=== PATIENT | male | born 1960 | race Caucasian/White ===

== ENCOUNTER → 2017-02-17 | Outpatient (CLI) | payer BC ==
[~2017-02-17] MED LIST: ASPI81TA28 PO; ATOR-26 PO; CLB200 PO; CLOP1TAB15 PO; METO25TA56 PO; MULT-506 PO; NAPR-1169 PO
[2017-02-17 12:16] LABS: BASO % 0.8 %; BASO ABS # 0.03 K/uL (0-0.2); COMPLETE YES; EOS % 3.1 %; HEMATOCRIT 43.3 % (42-52); IG% 0.3 %; LYMPH % 47.5 %; LYMPH ABS # 1.81 K/uL (1.2-3.4); MEAN CELL VOLUME 93.3 fL (80-100); MEAN CORPUSCULAR HGB CONC 33.3 g/dl (32-36); MEAN PLATELET VOLUME 10.5 fL (7.4-10.4); MONO % 11.8 %; NEUT % 36.5 %; PLATELET COUNT 239 K/uL (130-400); RED BLOOD COUNT 4.64 M/uL (4.7-6.1); WHITE BLOOD COUNT 3.81 K/uL (4.8-10.8)
[2017-02-17 12:22] LABS: ALB/GLOB RATIO 1.1 (0.9-2); ALT/SGPT 47 U/L (12-78); AST/SGOT 28 U/L (15-37); BLOOD UREA NITROGEN 34 mg/dl (7-18); BUN/CREATININE RATIO 30.9 (10-20); CALCIUM 9.9 mg/dl (8.5-10.1); CARBON DIOXIDE 27 mmol/L (21-32); CHLORIDE 106 mmol/L (98-107); GLUCOSE 87 mg/dl (70-99); SODIUM 139 mmol/L (136-145); TRIGLYCERIDES 89 mg/dl (0-150); VERY LOW DENSITY LIPOPROT CALC 18 mg/dl
[2017-02-17 12:28] LABS: ESTIMATED AVERAGE GLUCOSE 117 mg/dl; HA1C FLAG Normal (Normal)
[2017-02-17 12:30] LABS: ALKALINE PHOSPHATASE 66 U/L (45-117); CHOLESTEROL 202 mg/dl (0-200); HDL CHOLESTEROL 68 mg/dl; LDL CHOLESTEROL CALCULATED 116 mg/dl
== END | disposition home or self-care (01) ==
LOC: C.LABBFT 08:03
PROVIDERS: ATTEND Internal Medicine
DX: E78.5 Hyperlipidemia, unspecified (principal); R73.01 Impaired fasting glucose; Z12.5 Encounter for screening for malignant neoplasm of prostate

== ENCOUNTER 2022-08-10 15:27 | Inpatient (IN) ==
[2022-08-10 16:06] LABS: Basophils # (auto) 0.05 K/uL (0-0.2); Basophils % (auto) 0.6 %; Eosinophils # (auto) 0.03 K/uL (0-0.50); Eosinophils % (auto) 0.4 %; Hematocrit (blood only) 32.8 % (40.1-51.0); Hemoglobin 11.6 g/dl (14.0-18.0); Immature Granulocytes # (auto) 0.04 K/uL (0.00-0.02); Immature Granulocytes % (auto) 0.5 %; Lymphocytes # (auto) 1.18 K/uL (1.2-3.4); Lymphocytes % (auto) 14.1 %; Mean Corpuscular Hemoglobin 35.8 pg (25.0-34.0); Mean Corpuscular Hgb Conc 35.4 g/dL (32.0-36.0); Mean Corpuscular Volume 101.2 fL (80.0-100.0); Mean Platelet Volume 9.4 fL (9.4-12.4); Monocytes # (auto) 0.89 K/uL (0.24-0.82); Monocytes % (auto) 10.6 %; Neutrophils # (auto) 6.18 K/uL (1.4-6.5); Neutrophils % (auto) 73.8 %; Platelet Count 203 K/uL (130-400); RDW Coefficient of Variation 15.1 % (11.5-14.5); RDW Standard Deviation 55.4 fL (36.4-46.3); Red Blood Count 3.24 M/uL (4.63-6.08); White Blood Count 8.37 K/ul (4.8-10.8)
[2022-08-10 16:21] LABS: INR 1.4 (0.9-1.1); Partial Thromboplastin Ratio 1.2; Partial Thromboplastin Time 31.9 Seconds (21.0-31.0); Prothrombin Time 14.2 Seconds (9.0-12.0)
[2022-08-10 16:26] LABS: Albumin Globulin Ratio 0.6 (0.9-2); Albumin Level 2.8 gm/dl (3.4-5.0); BUN Creatinine Ratio 21.9 (10-20); Bilirubin,Total 4.4 mg/dl (0.2-1.0); Calcium 8.3 mg/dl (8.5-10.1); Creatinine Clr Calc Pharmacy 71.1 ml/min; Est GFR (African American) 97.1 ml/min; Est GFR (Non-African American) 83.8 ml/min; Globulin 4.7 gm/dl (2.5-4.0); Magnesium 1.3 mg/dl (1.7-2.4); Potassium 4.2 mmol/L (3.5-5.1); Total Protein 7.5 gm/dl (6.0-8.3)
--- NOTE | 2022-08-10 16:51 | XRay Report ---
XR chest 1V portable CLINICAL HISTORY: Shortness of breath. COMPARISON STUDY: Chest radiograph February 24, 2008. Chest CT February 25, 2008. FINDINGS: Low lung volumes are noted. There is no consolidation. No evidence for pulmonary edema. Car diac size is normal. Mediastinal contours are normal. IMPRESSION: No acute cardiopulmonary findings. Low lung volumes. ACT 112: Negative or not required by law. Electronically signed by: Walt Win M.D. 08/10/2022 4:50 PM
[2022-08-10] MEDS ORDERED: FAMOTIDINE 20MG IV PUSH 20 MG/5 ML SYR IV STA (17:24)
[2022-08-10] MEDS ORDERED: PANTOPRAZOLE BOLUS/DRIP 1 EACH IV STA (17:24)
[2022-08-10] MEDS ORDERED: PANTOprazole 80 MG in DEXTROSE 5% 100 ML IV ONE (17:24)
--- NOTE | 2022-08-10 17:55 | History & Physical Report ---
Date of Service August 10, 2022 Assessment & Plan (1) Ascites: Plan: Alcohol abuse, suspected failure change/cirrhosis Last drink 2:30 PM on 08/10/2022. For alcohol free days last week due to feeling very full, previously drinking up to 15 shots per day without any alcohol free days for several years AST 50, ALT 17, total bilirubin 4.4 on admission. DDx includes biliary disease, imaging pending and patient has had no post prandial pain or focal right upper quadrant pain. Ojeda's negative -MELD: 22, 19% 3-month mortality -Child Hatch 10, borderline class [facility]: 14.5. Glucocorticoids not indicated at this time Sodium restriction 2 g daily. NPO while eval for GIB Spironolactone 50/Lasix 20 mg daily started Thiamine high-dose protocol ordered Folic acid daily MIMI S with Librium active protocol given high intake for many years and elevated risk Hepatitis panel pending Melena No known esophageal varices. Imaging pending, if varices --> octreotide. Patient has never had a colonoscopy or endoscopy Hemoglobin 11.6, no indication for transfusion at this time Hemoglobin trended q8h DDx includes upper GI bleed versus varices GI consulted. With ascites evaluation as above. - Rocephin 1g QD SBP prophylaxis Iron studies pending, b12/folate pending PPI drip continued for potential GERD/peptic ulcer disease, patient does not have focal epigastric pain but does endorse diffuse abdominal discomf ort/pressure with his ascites Shortness of breath CTA PE pending CXR without edema/consolidation Patient with substantial ascites,? Fluid overload and pressure US guided paracentesis w/ analysis ordered for 08/11 Hypomagnesemia 1.3 on admission, oral and IV repletion ordered Hypertension Lasix/spironolactone as above, follow Med reconciliation, patient has taken no medications in over a year other than some of his 's lorazepam intermittently and rarely OTC medications. DVT prophylaxis: Pharmacal prophylaxis deferred in the setting of melena/concern for bleed Diet: N.p.o., when able to tolerate p.o. low-salt Disposition: Telemetry CODE STATUS: Full code (2) Alcohol abuse: (3) Hypertension: (4) Hyperlipidemia: (5) Elevated liver enzymes: (6) Impaired fasting glucose: (7) Melena: History of Present Illness Primary Care Provider: Roge Childers MD Suresh Pa is a 62-year-old male with a past medical history of alcohol abuse, BPH, asthmatic bronchitis, depression with anxiety, hypertension, and hyperlipidemia who had been lost to past PCP follow-up but comes in with worsening shortness of breath for several weeks. In the ER CXR shows no acute lung consolidation or pulmonary edema. Abdominal ultrasound shows hepatic steatosis, no evidence of acute cholecystitis, no biliary ductal dilation. Reports wanting him to com ein due to stomach pain. gutierrez snot taken any prescription medications in over a year. reports she was away and [place] for 9 days and then when she returned he had begun to lose weight and have progressive shortness of breath and leg/belly swelling since the end of March. Abdomen has been progressively swelling since then. Abdomen is diffusely tender without focal areas that are worst. Epigastrum is not particularly worse than anywhere else. Had regular clear/thick white phlegm production and some difficulty swallowing. Endorses difficulty swallowing solids since ~March and some food regurgitation. No regurgitating liquids although sometimes 'a littl ehard to get down.' No coughing up blood. No vomiting recently. No nausea with his vomiting. Genearlly related to high alcohol consumption No chest pain, no chest pressure independently but feels belly pressing up into the chest. 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 Notes his bowel movements are very small (only small round balls, but when he wipes the tissue paper is black). No large sticky bowel movements. No hx of colonoscopy or endoscopy Does not eat much. Eating even small amounts of food are both difficult to swallow and immediately feels full with just a few small bites. endorses pain when he changes position in bed at night, denies pain with mealss. Denies scleral icterus/jaundice No FHx of colon or rectal cancer. No fhx cancer. No family hx of early WI. No fhx bleeding problems. Med Hx: No heart problems, no lung problems/. Past HTN, takes no medications. Allergies: None Social: No tobacco product use EtoH History: - Drank alcohol since 11 years old. In the last month drinks a shot or two a day due to feelin full. Prior was drinking ~15 shots per day. Never went without any alchol. Went 4 days without etoh last week due to feeling full and overall poor. No hx of withdrawal sx or seizures. Last drink today just before ER visit (2:30pm on 08/10, x1 shot). uses marijuana periodically, helps with abdominal pain. No recreational drug use. Surrogate DM would be . Full Code. No leukocytosis. Hemoglobin 11.6, last 2 years ago 14.7. MCV 101.2 in the setting of alcohol use. Iron studies pending INR 1.4, no prior anticoagulant use Sodium 130, potassium 4.2 Creatinine at baseline is normal. On admission creatinine 0.96. Total bilirubin 4.4, AST 50, ALT 17. Troponin BMP COVID pending Allergies Allergy/AdvReac Type Severity Reaction Status Date / Time amlodipine [From [facility]] AdvReac Unknown PT UNAWARE Verified 08/10/22 18:22 OF THIS ALLERGY OR REACTION??? Home Medications Medication Instructions Recorded Confirmed Type acetaminophen 500 mg tablet 1,000 mg PO DIRECTED PRN 08/10/22 08/10/22 History (Tylenol Extra Strength) FEVER/PAIN dextromethorphan-guaifenesin 10 10 ml PO DIRECTED PRN Cough 08/10/22 08/10/22 History mg-100 mg/5 mL oral liquid guaifenesin 600 mg tablet, 600 mg PO Q12H PRN Congestion 08/10/22 08/10/22 History extended release 12 hr (Mucinex) lorazepam 0.5 mg tablet 0.5 mg PO DIRECTED PRN PER PT'S 08/10/22 08/10/22 History , NOT A PT MED Past Med/Surg History Medical History Asthmatic bronchitis Blurred vision BPH (benign prostatic hyperplasia) Dermatitis Elevated liver enzymes Erectile dysfunction Hyperlipidemia Hypertension Impaired fasting glucose Surgical History History of tonsillectomy and adenoidectomy Family History Father Heart disease Cardiomegaly Pacemaker Cardiac rhythm disorder or disturbance or change Mother Heart disease Pacemaker Social History Smoking Status: Never smoker Hx Alcohol Use: Yes Hx Substance Use: No marital status: / current occupational status: employed 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 NAD. Cooperative. HEENT: Atraumatic, normocephalic. Trace scleral icterus. Vision/hearing grossly intact Pulm: Diminished without overt wheezes/rales/rhonchi.. Symmetrical chest rise. No increase in work of breathing. No respiratory distress. Cardiac: Regular, tachycardic, -mrg. Radial pulses intact and symmetrical. Abdominal: Tense abdominal distention without focal tenderness/rebound, +fluid wave. No right upper quadrant/epigastric focal tenderness/Ojeda's negative. Extremities: Warm, dry. Sensation soft touch intact in hands and feet bilaterally. Results & Data Results & Data ([facility]) Vital Signs (Past 12 Hours) Vital Signs Temp Pulse Pulse Resp BP BP Pulse Ox 08/10/22 16:25 98 08/10/22 16:25 08/10/22 16:25 20 98 08/10/22 16:25 104 H 20 134/101 H 99 08/10/22 16:25 08/10/22 15:37 08/10/22 15:33 36.8 C 106 H 20 131/94 98 O2 Del Method 08/10/22 16:25 Room Air 08/10/22 16:25 Room Air 08/10/22 16:25 Room Air 08/10/22 16:25 Room Air 08/10/22 16:25 Room Air 08/10/22 15:37 Room Air 08/10/22 15:33 Room Air PG Care Time/CCT Total # of Minutes Spent Total Time Spent with Patient: Total time spent is greater than 50% in coordination of care (as documented) at patient's floor/unit and/or counseling patient: Coding Level of Care Code 04677 Initial Inpt Care Lvl 3 Diagnoses Ascites R18.8 Alcohol abuse F10.10 Hypertension I10 Hyperlipidemia E78.5 Elevated liver enzymes R74.8 Impaired fasting glucose R73.01 Melena K92.1
[2022-08-10] MEDS ORDERED: OPTIRAY 320 500ml IV ONE (18:31)
--- NOTE | 2022-08-10 18:35 | Emergency Department Note ---
Impression & Plan SOB (shortness of breath), Abdominal ascites, ETOH abuse, Elevated LFTs, Anemia, Accelerated junctional rhythm, Noncompliance with medication regimen ED Provider Note INFORMANT: Patient ED PROVIDER(S): Suresh Mckeon MD CHIEF COMPLAINT: Shortness of breath PLAN: Disposition: Admitted Condition: Guarded Outpatient prescription management: none Referral: None MEDICAL DECISION MAKING: Patient present because of shortness of breath. His history is very concerning for alcohol abuse. He has an ascitic fluid wave on examination. He has not been taking his medications. His ECG showed an accelerated junctional rhythm. CBC showed a mild anemia and high MCV consistent with his alcohol use. Patient has an elevated INR as well as T bili and AST. Chest x-ray was negative. CT scan of the chest did not reveal any acute evidence of thromboembolic disease. CT scan of the abdomen pelvis did reveal significant findings consistent with liver disease including ascites. I discussed further management in the hospital. Patient was treated with Pepcid and Protonix. [facility] Patient was evaluated in ER admitted for further management Triage Nursing notes reviewed and agree them. Vital Signs: reviewed and remarkable for hypertension Differential diagnosis: End-stage liver disease, reactive airway disease, pneumonia, pneumothorax, COPD, CHF, infections, cardiac ischemia, pulmonary embolism, musculoskeletal, gastrointestinal, as well as other pathologies. Diagnostics interpreted by me: ECG: Twelve-lead ECG reveals an accelerated junctional rhythm with low voltage QRS and inferior Q waves at [address] elevation. Poor baseline data. Cardiac Monitoring: Cardiac monitoring ordered by me: The patient was placed on continuous cardiac monitoring and observed. It revealed accelerated junctional rhythm at 99 bpm. Imaging studies: Chest x-ray and CT scans as noted above. I refer you to the EMR for further details. HPI: The patient is a 62year old male who presents to the Emergency Room with complaints of shortness of breath. This started few weeks ago and is worsening.Patient notes dyspnea with walking from his bed to bathroom. The patient also notes the following associated symptoms, abdominal distention, oc casional lower abdominal cramping, lower extremity swelling, fatigue and generalized weakness, black stool. The patient has found no relieving factors. Current pain is rated as 0/10. Patient states he drinks a significant mount of alcohol on a daily basis. Patient states he has run out of his blood pressure medication and avoided going to the doctor to refill it due to his alcohol issues .pt denies LOC, headache, fevers, chills, diaphoresis, visual changes, neck pain, chest pain, nausea, vomiting, back pain, hematochezia, urinary symptoms, numbness, lymphadenopathy, rash, or other complaints. ROS: See above HPI for pertinent positives & negatives. A total of 10 systems reviewed and were otherwise negative. PAST MEDICAL HISTORY:See Below , hypertension, EtOH abuse PAST SURGICAL HISTORY:See Below, FAMILY HISTORY:See Below SOCIAL HISTORY:See Below, heavy alcohol use HOME MEDICATIONS:See Below ALLERGIES:See Below VITALS:See Below PHYSICAL EXAMINATION: GENERAL: Awake, alert, mildly dyspneic-appearing, in no distress HENT: Normocephalic, atraumatic. Oropharynx unremarkable. EYES: Pale conjunctiva. Sclera mildly-icteric. NECK: Inspection normal. Non-tender. Supple. No nuchal rigidity. FROM. No masses. RESPIRATORY: Clear to auscultation. No wheezes. No rales. Normal respiratory effort. CARDIAC: Normal rate. Normal rhythm. No murmurs. No rubs. Extremities warm and well perfused. Pulses equal. No JVD. GI: Soft, positive fluid wave, moderately-distended. No tenderness to palpation. No rebound or guarding. No masses. RECTAL: Deferred. MUSCULOSKELETAL: Atraumatic. Chest examination reveals no tenderness. The back is symmetrical on inspection without obvious abnormality. There is no CVA tenderness to palpation. No joint edema. LOWER EXTREMITIES: Calves are equal size bilaterally and non-tender. 1+ edema. No discoloration. NEURO: Normal sensorium. No sensory or motor deficits noted. SKIN: No rash but mild jaundice noted. Suresh Mckeon MD Past Med/Surg History Medical History Asthmatic bronchitis Blurred vision BPH (benign prostatic hyperplasia) Dermatitis Elevated liver enzymes Erectile dysfunction Hyperlipidemia Hypertension Impaired fasting glucose Surgical History History of tonsillectomy and adenoidectomy Family History Father Heart disease Cardiomegaly Pacemaker Cardiac rhythm disorder or disturbance or change Mother Heart disease Pacemaker Social History Smoking Status: Former smoker Hx Alcohol Use: Yes Alcohol type: hard liquor Hx Substance Use: Yes Substance Use Type Other:: used last evening Preferred Language: Brazilian Communication Ability: Effective Field Sales Specialist Required: No Beliefs That Will Affect Care: None marital status: / Current Living Situation: Spouse current occupational status: employed 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 Home Meds Home Medications Medication Instructions Recorded Confirmed acetaminophen 500 mg tablet 1,000 mg PO DIRECTED PRN 08/10/22 08/10/22 (Tylenol Extra Strength) FEVER/PAIN dextromethorphan-guaifenesin 10 10 ml PO DIRECTED PRN Cough 08/10/22 08/10/22 mg-100 mg/5 mL oral liquid guaifenesin 600 mg tablet, 600 mg PO Q12H PRN Congestion 08/10/22 08/10/22 extended release 12 hr (Mucinex) lorazepam 0.5 mg tablet 0.5 mg PO DIRECTED PRN PER PT'S 08/10/22 08/10/22 , NOT A PT MED Results & Data (ED) Vital Signs Vital Signs - 24 hr 08/10/22 15:33 08/10/22 15:37 08/10/22 16:25 Temperature 36.8 C Temperature Source Temporal Artery Scan Pulse Rate 106 H Pulse Rate [Apical] Pulse Rhythm Regular Pulse Rhythm [Apical] Pulse Strength Normal Pulse Strength [Apical] Respiratory Rate 20 Respiratory Effort / Characteristics Non-Labored Spontaneous Non-Labored Respiratory Depth Normal Normal Respiratory Pattern Regular Regular Blood Pressure 131/94 Blood Pressure [Right Arm] Blood Pressure Mean 106 Blood Pressure Mean [Right Arm] Blood Pressure Position Sitting Blood Pressure Position [Right Arm] Pulse Oximetry 98 Oxygen Delivery Method Room Air Room Air Room Air Sepsis Recent Fever Within 48 Hours No Sepsis New/Unexplained Change in Mental Status N/A Sepsis Action Taken by Nursing No Action Required 08/10/22 16:25 08/10/22 16:25 08/10/22 16:25 Temperature Temperature Source Pulse Rate Pulse Rate [Apical] 104 H Pulse Rhythm Pulse Rhythm [Apical] Regular Pulse Strength Pulse Strength [Apical] Normal Respiratory Rate 20 20 Respiratory Effort / Characteristics Non-Labored Non-Labored Respiratory Depth Normal Respiratory Pattern Regular Blood Pressure Blood Pressure [Right Arm] 134/101 H Blood Pressure Mean Blood Pressure Mean [Right Arm] 112 Blood Pressure Position Blood Pressure Position [Right Arm] Lying Pulse Oximetry 99 98 Oxygen Delivery Method Room Air Room Air Room Air Sepsis Recent Fever Within 48 Hours Sepsis New/Unexplained Change in Mental Status Sepsis Action Taken by Nursing 08/10/22 16:25 08/10/22 18:00 Temperature Temperature Source Pulse Rate Pulse Rate [Apical] 101 H Pulse Rhythm Pulse Rhythm [Apical] Regular Pulse Strength Pulse Strength [Apical] Normal Respiratory Rate 20 Respiratory Effort / Characteristics Non-Labored Respiratory Depth Normal Respiratory Pattern Regular Blood Pressure Blood Pressure [Right Arm] 134/103 H Blood Pressure Mean Blood Pressure Mean [Right Arm] 113 Blood Pressure Position Blood Pressure Position [Right Arm] Lying Pulse Oximetry 98 96 Oxygen Delivery Method Room Air Room Air Sepsis Recent Fever Within 48 Hours Sepsis New/Unexplained Change in Mental Status Sepsis Action Taken by Nursing Laboratory Data Result diagrams: 08/10/22 21:09 08/10/22 15:57 Lab Results 08/10/22 08/10/22 08/10/22 Range/Units 15:57 15:57 15:57 WBC 8.37 (4.8-10.8) K/ul RBC 3.24 L (4.63-6.08) M/uL Hgb 11.6 L (14.0-18.0) g/dl Hct 32.8 L (40.1-51.0) % MCV 101.2 H (80.0-100.0) fL MCH 35.8 H (25.0-34.0) pg MCHC 35.4 (32.0-36.0) g/dL RDW Std Deviation 55.4 H (36.4-46.3) fL RDW Coeff of Elizabeth 15.1 H (11.5-14.5) % Plt Count 203 (130-400) K/uL MPV 9.4 (9.4-12.4) fL Immature Gran % (Auto) 0.5 % Neut % (Auto) 73.8 % Lymph % (Auto) 14.1 % [place] % (Auto) 10.6 % Eos % (Auto) 0.4 % Baso % (Auto) 0.6 % Neut # (Auto) 6.18 (1.4-6.5) K/uL Lymph # (Auto) 1.18 L (1.2-3.4) K/uL [place] # (Auto) 0.89 H (0.24-0.82) K/uL Eos # (Auto) 0.03 (0-0.50) K/uL Baso # (Auto) 0.05 (0-0.2) K/uL Immature Gran # (Auto) 0.04 H (0.00-0.02) K/uL PT 14.2 H (9.0-12.0) Seconds INR 1.4 H (0.9-1.1) APTT 31.9 H (21.0-31.0) Seconds PTT Ratio 1.2 Sodium 130 L (136-145) mmol/L Potassium 4.2 (3.5-5.1) mmol/L Chloride 98 (98-107) mmol/L Carbon Dioxide 18 L (21-32) mmol/L Anion Gap 14 H (3-11) BUN 21 (6-23) mg/dl Creatinine 0.96 (0.6-1.4) mg/dl Est Cr Clr Drug Dosing 71.1 ml/min Est GFR ( Amer) 97.1 ml/min Est GFR (Non-Af Amer) 83.8 ml/min BUN/Creatinine Ratio 21.9 H (10-20) Glucose 96 (70-99(Fasting)) mg/dl Calcium 8.3 L (8.5-10.1) mg/dl Magnesium 1.3 L (1.7-2.4) mg/dl Iron (35-175) mcg/dl TIBC (250-450) mcg/dl Unsaturated IBC (155-355) mcg/dl Transferrin % Sat (20-50) % Ferritin (8-388) ng/ml Total Bilirubin 4.4 H (0.2-1.0) mg/dl AST 50 H (13-39) U/L ALT 17 (7-52) U/L Alkaline Phosphatase 89 (34-104) U/L Troponin I High Sens (0-20) pg/ml B-Natriuretic Peptide (0-100) pg/ml Total Protein 7.5 (6.0-8.3) gm/dl Albumin 2.8 L (3.4-5.0) gm/dl Globulin 4.7 H (2.5-4.0) gm/dl Albumin/Globulin Ratio 0.6 L (0.9-2) Vitamin B12 (180-914) pg/ml Folate (>5.38) ng/ml SARS-CoV-2, RNA, NAAT (NEGATIVE) Blood Type Antibody Screen 08/10/22 08/10/22 08/10/22 Range/Units 15:57 15:57 15:57 WBC (4.8-10.8) K/ul RBC (4.63-6.08) M/uL Hgb (14.0-18.0) g/dl Hct (40.1-51.0) % MCV (80.0-100.0) fL MCH (25.0-34.0) pg MCHC (32.0-36.0) g/dL RDW Std Deviation (36.4-46.3) fL RDW Coeff of Elizabeth (11.5-14.5) % Plt Count (130-400) K/uL MPV (9.4-12.4) fL Immature Gran % (Auto) % Neut % (Auto) % Lymph % (Auto) % [place] % (Auto) % Eos % (Auto) % Baso % (Auto) % Neut # (Auto) (1.4-6.5) K/uL Lymph # (Auto) (1.2-3.4) K/uL [place] # (Auto) (0.24-0.82) K/uL Eos # (Auto) (0-0.50) K/uL Baso # (Auto) (0-0.2) K/uL Immature Gran # (Auto) (0.00-0.02) K/uL PT (9.0-12.0) Seconds INR (0.9-1.1) APTT (21.0-31.0) Seconds PTT Ratio Sodium (136-145) mmol/L Potassium (3.5-5.1) mmol/L Chloride (98-107) mmol/L Carbon Dioxide (21-32) mmol/L Anion Gap (3-11) BUN (6-23) mg/dl Creatinine (0.6-1.4) mg/dl Est Cr Clr Drug Dosing ml/min Est GFR ( Amer) ml/min Est GFR (Non-Af Amer) ml/min BUN/Creatinine Ratio (10-20) Glucose (70-99(Fasting)) mg/dl Calcium (8.5-10.1) mg/dl Magnesium (1.7-2.4) mg/dl Iron 46 (35-175) mcg/dl TIBC 111 L (250-450) mcg/dl Unsaturated IBC 65 L (155-355) mcg/dl Transferrin % Sat 41 (20-50) % Ferritin 934.9 H (8-388) ng/ml Total Bilirubin (0.2-1.0) mg/dl AST (13-39) U/L ALT (7-52) U/L Alkaline Phosphatase (34-104) U/L Troponin I High Sens 5.6 (0-20) pg/ml B-Natriuretic Peptide (0-100) pg/ml Total Protein (6.0-8.3) gm/dl Albumin (3.4-5.0) gm/dl Globulin (2.5-4.0) gm/dl Albumin/Globulin Ratio (0.9-2) Vitamin B12 712 (180-914) pg/ml Folate 6.77 (>5.38) ng/ml SARS-CoV-2, RNA, NAAT (NEGATIVE) Blood Type Antibody Screen 08/10/22 08/10/22 08/10/22 Range/Units 15:57 17:31 17:31 WBC (4.8-10.8) K/ul RBC (4.63-6.08) M/uL Hgb (14.0-18.0) g/dl Hct (40.1-51.0) % MCV (80.0-100.0) fL MCH (25.0-34.0) pg MCHC (32.0-36.0) g/dL RDW Std Deviation (36.4-46.3) fL RDW Coeff of Elizabeth (11.5-14.5) % Plt Count (130-400) K/uL MPV (9.4-12.4) fL Immature Gran % (Auto) % Neut % (Auto) % Lymph % (Auto) % [place] % (Auto) % Eos % (Auto) % Baso % (Auto) % Neut # (Auto) (1.4-6.5) K/uL Lymph # (Auto) (1.2-3.4) K/uL [place] # (Auto) (0.24-0.82) K/uL Eos # (Auto) (0-0.50) K/uL Baso # (Auto) (0-0.2) K/uL Immature Gran # (Auto) (0.00-0.02) K/uL PT (9.0-12.0) Seconds INR (0.9-1.1) APTT (21.0-31.0) Seconds PTT Ratio Sodium (136-145) mmol/L Potassium (3.5-5.1) mmol/L Chloride (98-107) mmol/L Carbon Dioxide (21-32) mmol/L Anion Gap (3-11) BUN (6-23) mg/dl Creatinine (0.6-1.4) mg/dl Est Cr Clr Drug Dosing ml/min Est GFR ( Amer) ml/min Est GFR (Non-Af Amer) ml/min BUN/Creatinine Ratio (10-20) Glucose (70-99(Fasting)) mg/dl Calcium (8.5-10.1) mg/dl Magnesium (1.7-2.4) mg/dl Iron (35-175) mcg/dl TIBC (250-450) mcg/dl Unsaturated IBC (155-355) mcg/dl Transferrin % Sat (20-50) % Ferritin (8-388) ng/ml Total Bilirubin (0.2-1.0) mg/dl AST (13-39) U/L ALT (7-52) U/L Alkaline Phosphatase (34-104) U/L Troponin I High Sens (0-20) pg/ml B-Natriuretic Peptide 110 H (0-100) pg/ml Total Protein (6.0-8.3) gm/dl Albumin (3.4-5.0) gm/dl Globulin (2.5-4.0) gm/dl Albumin/Globulin Ratio (0.9-2) Vitamin B12 Cancelled (180-914) pg/ml Folate (>5.38) ng/ml SARS-CoV-2, RNA, NAAT (NEGATIVE) Blood Type O Positive Antibody Screen NEGATIVE 08/10/22 Range/Units 17:35 WBC (4.8-10.8) K/ul RBC (4.63-6.08) M/uL Hgb (14.0-18.0) g/dl Hct (40.1-51.0) % MCV (80.0-100.0) fL MCH (25.0-34.0) pg MCHC (32.0-36.0) g/dL RDW Std Deviation (36.4-46.3) fL RDW Coeff of Elizabeth (11.5-14.5) % Plt Count (130-400) K/uL MPV (9.4-12.4) fL Immature Gran % (Auto) % Neut % (Auto) % Lymph % (Auto) % [place] % (Auto) % Eos % (Auto) % Baso % (Auto) % Neut # (Auto) (1.4-6.5) K/uL Lymph # (Auto) (1.2-3.4) K/uL [place] # (Auto) (0.24-0.82) K/uL Eos # (Auto) (0-0.50) K/uL Baso # (Auto) (0-0.2) K/uL Immature Gran # (Auto) (0.00-0.02) K/uL PT (9.0-12.0) Seconds INR (0.9-1.1) APTT (21.0-31.0) Seconds PTT Ratio Sodium (136-145) mmol/L Potassium (3.5-5.1) mmol/L Chloride (98-107) mmol/L Carbon Dioxide (21-32) mmol/L Anion Gap (3-11) BUN (6-23) mg/dl Creatinine (0.6-1.4) mg/dl Est Cr Clr Drug Dosing ml/min Est GFR ( Amer) ml/min Est GFR (Non-Af Amer) ml/min BUN/Creatinine Ratio (10-20) Glucose (70-99(Fasting)) mg/dl Calcium (8.5-10.1) mg/dl Magnesium (1.7-2.4) mg/dl Iron (35-175) mcg/dl TIBC (250-450) mcg/dl Unsaturated IBC (155-355) mcg/dl Transferrin % Sat (20-50) % Ferritin (8-388) ng/ml Total Bilirubin (0.2-1.0) mg/dl AST (13-39) U/L ALT (7-52) U/L Alkaline Phosphatase (34-104) U/L Troponin I High Sens (0-20) pg/ml B-Natriuretic Peptide (0-100) pg/ml Total Protein (6.0-8.3) gm/dl Albumin (3.4-5.0) gm/dl Globulin (2.5-4.0) gm/dl Albumin/Globulin Ratio (0.9-2) Vitamin B12 (180-914) pg/ml Folate (>5.38) ng/ml SARS-CoV-2, RNA, NAAT NEGATIVE (NEGATIVE) Blood Type Antibody Screen Administered Medications Chlordiazepoxide HCl (Chlordiazepoxide Hcl 25 Mg Cap) 25 mg PO Q6H JUSTINO; Taper Stop: 08/12/22 20:52 Last Admin: 08/10/22 21:46 Dose: 25 mg Documented By: PENELOPE Pantoprazole Sodium 40 mg/ (Dextrose) 100 mls @ 20 mls/hr IV Q5H JUSTINO Stop: 09/09/22 17:44 Last Admin: 08/10/22 22:13 Dose: 8 mg/hr, 20 mls/hr Documented By: Infusion: 08/10/22 22:13 Dose: 8 mg/hr, 20 mls/hr Documented By: Admin: 08/10/22 19:04 Dose: 8 mg/hr, 20 mls/hr Documented By: Ceftriaxone Sodium 1,000 mg/ (Dextrose) 60 mls @ 100 mls/hr IV Q24H JUSTINO; Protocol Stop: 08/12/22 21:59 Last Infusion: 08/10/22 22:46 Dose: 0 mls/hr Documented By: Admin: 08/10/22 22:10 Dose: 100 mls/hr Documented By: PENELOPE Magnesium Sulfate/Dextrose (Magnesium Sulfate / D5w) 1 gm in 100 mls @ 50 mls/hr IV Q2H JUSTINO Stop: 08/11/22 00:52 Last Admin: 08/10/22 22:20 Dose: 50 mls/hr Documented By: PENELOPE Magnesium Oxide (Magnesium Oxide 400 Mg Tab) 400 mg PO BID JUSTINO Stop: 09/09/22 20:59 Last Admin: 08/10/22 22:10 Dose: 400 mg Documented By: PENELOPE Discontinued Medications Famotidine (Pepcid 20mg Iv Push) 20 mg in 5 mls @ 2.5 mls/min IV NOW STA Stop: 08/10/22 17:25 Last Admin: 08/10/22 17:45 Dose: 2.5 mls/min Documented By: JB Pantoprazole Sodium (Protonix Bolus/Drip) 0 mls @ 1 mls/hr IV ONE STA Stop: 08/10/22 17:25 Last Admin: 08/10/22 21:43 Dose: Not Given Documented By: PENELOPE Pantoprazole Sodium 80 mg/ (Dextrose) 120 mls @ 400 mls/hr IV NOW ONE Stop: 08/10/22 17:41 Last Infusion: 08/10/22 18:54 Dose: 0 mls/hr Documented By: Admin: 08/10/22 18:36 Dose: 400 mls/hr Documented By: MICHAEL Thiamine HCl 500 mg/ Sodium (Chloride) 55 mls @ 220 mls/hr IV TODAY@2200 JUSTINO Stop: 08/10/22 22:14 Last Infusion: 08/10/22 22:34 Dose: 0 mls/hr Documented By: Admin: 08/10/22 22:19 Dose: 220 mls/hr Documented By: PENELOPE Ioversol (Optiray 320 500ml) 112 ml IV ONCE ONE Stop: 08/10/22 18:32 Last Admin: 08/10/22 18:31 Dose: 112 ml Documented By: CARLA Imaging Data Radiologist's Impression: Chest X-Ray 08/10/22 15:37 XR chest 1V portable CLINICAL HISTORY: Shortness of breath. COMPARISON STUDY: Chest radiograph February 24, 2008. Chest CT February 25, 2008. FINDINGS: Low lung volumes are noted. There is no consolidation. No evidence for pulmonary edema. Cardiac size is normal. Mediastinal contours are normal. IMPRESSION: No acute cardiopulmonary findings. Low lung volumes. ACT 112: Negative or not required by law. Electronically signed by: Walt Win M.D. 08/10/2022 4:50 PM Abdomen/Pelvis CT 08/10/22 17:24 CT OF THE ABDOMEN AND PELVIS WITH CONTRAST CLINICAL HISTORY: Abdominal distension, lower pain, ETOH abuse. COMPARISON STUDY: CT of the abdomen and pelvis April 22, 2012. TECHNIQUE: Following IV administration of 112 mL of Optiray, axial images of the abdomen and pelvis were obtained from the lung bases to the proximal femurs. Im ages were reviewed in the axial, sagittal, and coronal planes. IV contrast was administered without complication. Automated exposure control was utilized for the study. A dose lowering technique was utilized adhering to the principles of ALARA. FINDINGS: Please note that the chest CT will be reported separately. No pneumatosis, free air or portal venous gas is present. The liver is cirrhotic. The main, left and right portal veins are patent. There is a recanalized par aumbilical vein. Possible 9 mm hypodense right hepatic lobe lesion is too small to characterize. Sensitivity for detection of hypervascular lesions is diminished on this portal venous phase exam. Size of the spleen is normal. Large volume ascites is noted. Adrenal glands, kidneys and pancreas are normal. Is no hydronephrosis. There is no evidence for a bowel obstruction. The appendix is normal. Colonic diverticulosis is present. No evidence for acute diverticulitis. No acute fracture within the lumbar spine, pelvis or hips is identified. Healing lateral left 10th rib fracture is noted. IMPRESSION: 1. Cirrhosis. Large volume ascites and recanalized paraumbilical vein. These findings indicate portal hypertension. 2. Possible 9 mm hypodense right hepatic lobe lesion which is too small to characterize. This can be assessed on follow-up studies. 3. No bowel obstruction. Colonic diverticulosis without evidence for acute diverticulitis. ACT 112: Negative or not required by law. Electronically signed by: Walt Win M.D. 08/10/2022 6:44 PM Chest CTA 08/10/22 17:24 CT ANGIOGRAPHY OF THE CHEST, PULMONARY EMBOLUS PROTOCOL CLINICAL HISTORY: Shortness of breath, Etoh abuse COMPARISON STUDY: Chest CT February 15, 2008 and chest radiograph performed earlier today. TECHNIQUE: Following IV administration of 112 mL of Optiray, helical axial images of the chest were obtained utilizing the pulmonary embolus protocol. Maximal intensity projections and sagittal and coronal reformats were viewed on an independent 3D workstation. IV contrast was administered without complication. Automated exposure control was utilized for the study. A dose lowering technique was utilized adhering to the principles of ALARA. CT DOSE: 1707.75 mGy.cm FINDINGS: No central or lobar pulmonary emboli are identified. Evaluation of the segmental and subsegmental pulmonary arteries is significantly compromised due to respiratory motion. Mild cardiomegaly is noted with moderate coronary artery calcification. There is no thoracic aortic dissection. No thoracic lymphadenopathy is noted. There is no pneumothorax or pleural effusion. Linear and groundglass opacities within lungs favor atelectasis. There is no consolidation to suggest pneumonia. Lung volumes are diminished. Large volume ascites is better depicted on the CT of the abdomen and pelvis which will be reported separately. A few mild compression of fluid within the thoracic spine are chronic. IMPRESSION: 1. No pulmonary emboli identified although exam significantly compromised due to respiratory motion. 2. Low lung volumes. Large volume ascites, better depicted on the CT of the abdomen or pelvis. 3. No consolidation to suggest pneumonia. ACT 112: Negative or not required by law. Electronically signed by: Walt Win M.D. 08/10/2022 6:37 PM Discharge Plan Visit Data Chief Complaint: Shortness of Breath/Dyspnea Stated Complaint: BELLY SWOLLEN,NOT EAT OR DRINK,SOB ED Provider: Suresh Mckeon Discharge Problem: SOB (shortness of breath), Abdominal ascites, ETOH abuse, Elevated LFTs, Anemia, Accelerated junctional rhythm, Noncompliance with medication regimen Patient Disposition: Admitted As Inpatient Discharge Instructions Interventions: ED Discharge Assessment Last Done: 08/10/22 21:00
--- NOTE | 2022-08-10 18:40 | CT Scan Report ---
CT ANGIOGRAPHY OF THE CHEST, PULMONARY EMBOLUS PROTOCOL CLINICAL HISTORY: Shortness of breath, Etoh abuse COMPARISON STUDY: Chest CT February 15, 2008 and chest radiograph performed earlier today. TECHNIQUE: Following IV administration of 112 mL of Optiray, helical axial images of the chest were o btained utilizing the pulmonary embolus protocol. Maximal intensity projections and sagittal and cor onal reformats were viewed on an independent 3D workstation. IV contrast was administered without co mplication. Automated exposure control was utilized for the study. A dose lowering technique was ut ilized adhering to the principles of ALARA. CT DOSE: 1707.75 mGy.cm FINDINGS: No central or lobar pulmonary emboli are identified. Evaluation of the segmental and subse gmental pulmonary arteries is significantly compromised due to respiratory motion. Mild cardiomegaly is noted with moderate coronary artery calcification. There is no thoracic aortic dissection. No thor acic lymphadenopathy is noted. There is no pneumothorax or pleural effusion. Linear and groundglass o pacities within lungs favor atelectasis. There is no consolidation to suggest pneumonia. Lung volumes are diminished. Large volume ascites is better depicted on the CT of the abdomen and pelvis which wi ll be reported separately. A few mild compression of fluid within the thoracic spine are chronic. IMPRESSION: 1. No pulmonary emboli identified although exam significantly compromised due to respiratory motion. 2. Low lung volumes. Large volume ascites, better depicted on the CT of the abdomen or pelvis. 3. No consolidation to suggest pneumonia. ACT 112: Negative or not required by law. Electronically signed by: Walt Win M.D. 08/10/2022 6:37 PM
--- NOTE | 2022-08-10 18:47 | CT Scan Report ---
CT OF THE ABDOMEN AND PELVIS WITH CONTRAST CLINICAL HISTORY: Abdominal distension, lower pain, ETOH abuse. COMPARISON STUDY: CT of the abdomen and pelvis April 22, 2012. TECHNIQUE: Following IV administration of 112 mL of Optiray, axial images of the abdomen and pelvis w ere obtained from the lung bases to the proximal femurs. Images were reviewed in the axial, sagittal, and coronal planes. IV contrast was administered without complication. Automated exposure control w as utilized for the study. A dose lowering technique was utilized adhering to the principles of JORGE Olson. FINDINGS: Please note that the chest CT will be reported separately. No pneumatosis, free air or port al venous gas is present. The liver is cirrhotic. The main, left and right portal veins are patent. T here is a recanalized paraumbilical vein. Possible 9 mm hypodense right hepatic lobe lesion is too sm all to characterize. Sensitivity for detection of hypervascular lesions is diminished on this portal venous phase exam. Size of the spleen is normal. Large volume ascites is noted. Adrenal glands, kidne ys and pancreas are normal. Is no hydronephrosis. There is no evidence for a bowel obstruction. The a ppendix is normal. Colonic diverticulosis is present. No evidence for acute diverticulitis. No acute fracture within the lumbar spine, pelvis or hips is identified. Healing lateral left 10th rib fractur e is noted. IMPRESSION: 1. Cirrhosis. Large volume ascites and recanalized paraumbilical vein. These findings indicate portal hypertension. 2. Possible 9 mm hypodense right hepatic lobe lesion which is too small to characterize. This can be assessed on follow-up studies. 3. No bowel obstruction. Colonic diverticulosis without evidence for acute diverticulitis. ACT 112: Negative or not required by law. Electronically signed by: Walt Win M.D. 08/10/2022 6:44 PM
[2022-08-10] MEDS: PANTOprazole 40 MG in DEXTROSE 5% 100 ML IV SCH ×2 (19:04→22:13)
[2022-08-10] MEDS ORDERED: LORazepam 1 MG in SYRINGE 0 ML IV PRN (20:53)
[2022-08-10] MEDS ORDERED: chlordiazePOXIDE ALCOHOL WITHDRAWL 25MG PO STA (20:53)
[2022-08-10] MEDS ORDERED: Ativan IV Alcohol Withdrawal--Active Protocol IV PRN (20:53)
[2022-08-10] MEDS ORDERED: LORazepam 2 MG in SYRINGE 0 ML IV PRN (20:53)
[2022-08-10] MEDS ORDERED: LORazepam 3 MG in SYRINGE 0 ML IV PRN (20:53)
[2022-08-10] MEDS ORDERED: POLYETHYLENE (MIRALAX) 17 GM PACK PO PRN (20:53)
[2022-08-10 21:33] LABS: Ferritin 934.9 ng/ml (8-388)
[2022-08-10 21:40] LABS: Hematocrit (blood only) 29.8 % (40.1-51.0); Hemoglobin 10.9 g/dl (14.0-18.0)
[2022-08-10] MEDS: chlordiazePOXIDE HCl 25 MG CAP PO SCH (21:46)
[2022-08-10] MEDS ORDERED: THIAMINE HCL 500 MG in SODIUM CHLORIDE 0.9% 50 ML IV SCH (22:00)
[2022-08-10] MEDS: MAGNESIUM OXIDE 400 MG TAB PO SCH (22:10)
[2022-08-10] MEDS: cefTRIAXone SODIUM 1,000 MG in DEXTROSE 5% 50 ML IV SCH (22:10)
[2022-08-10] MEDS: MAGNESIUM SULFATE / D5W 1 GM/100 ML BAG IV SCH (22:20)
[2022-08-10] MEDS ORDERED: FLUARIX QUADRIVALENT 0.5 ML SYR IM ONE (22:51)
[2022-08-11] MEDS: MAGNESIUM SULFATE / D5W 1 GM/100 ML BAG IV SCH (00:05)
[2022-08-11] MEDS: chlordiazePOXIDE HCl 25 MG CAP PO SCH ×4 (03:07→21:45)
[2022-08-11] MEDS: PANTOprazole 40 MG in DEXTROSE 5% 100 ML IV SCH ×5 (03:13→23:42)
[2022-08-11 08:12] LABS: Basophils # (auto) 0.05 K/uL (0-0.2); Basophils % (auto) 0.9 %; Eosinophils # (auto) 0.08 K/uL (0-0.50); Eosinophils % (auto) 1.4 %; Hematocrit (blood only) 25.7 % (40.1-51.0); Hemoglobin 9.4 g/dl (14.0-18.0); Immature Granulocytes # (auto) 0.03 K/uL (0.00-0.02); Immature Granulocytes % (auto) 0.5 %; Lymphocytes # (auto) 1.11 K/uL (1.2-3.4); Lymphocytes % (auto) 20.1 %; Mean Corpuscular Hemoglobin 35.9 pg (25.0-34.0); Mean Corpuscular Hgb Conc 36.6 g/dL (32.0-36.0); Mean Corpuscular Volume 98.1 fL (80.0-100.0); Mean Platelet Volume 9.7 fL (9.4-12.4); Monocytes # (auto) 0.71 K/uL (0.24-0.82); Monocytes % (auto) 12.9 %; Neutrophils # (auto) 3.54 K/uL (1.4-6.5); Neutrophils % (auto) 64.2 %; Platelet Count 143 K/uL (130-400); RDW Coefficient of Variation 15.2 % (11.5-14.5); RDW Standard Deviation 54.8 fL (36.4-46.3); Red Blood Count 2.62 M/uL (4.63-6.08); White Blood Count 5.52 K/ul (4.8-10.8)
[2022-08-11] MEDS: FOLIC ACID 1 MG TAB PO SCH (08:13)
[2022-08-11] MEDS: MAGNESIUM OXIDE 400 MG TAB PO SCH ×2 (08:13→21:45)
[2022-08-11] MEDS: THIAMINE HCL 200 MG in SODIUM CHLORIDE 0.9% 50 ML IV SCH ×3 (08:13→21:29)
[2022-08-11] MEDS: SPIRONOLACTONE 25 MG TAB PO SCH (08:13)
[2022-08-11] MEDS: FUROSEMIDE INJ 20 MG/2 ML VIAL IV SCH (08:16)
[2022-08-11 08:37] LABS: Albumin Globulin Ratio 0.6 (0.9-2); Albumin Level 2.4 gm/dl (3.4-5.0); BUN Creatinine Ratio 23.5 (10-20); Bilirubin,Total 3.3 mg/dl (0.2-1.0); Calcium 7.8 mg/dl (8.5-10.1); Creatinine Clr Calc Pharmacy 89.9 ml/min; Est GFR (African American) 107.5 ml/min; Est GFR (Non-African American) 92.7 ml/min; Globulin 3.9 gm/dl (2.5-4.0); Magnesium 1.6 mg/dl (1.7-2.4); Potassium 3.6 mmol/L (3.5-5.1); Total Protein 6.3 gm/dl (6.0-8.3)
[2022-08-11 08:41] LABS: INR 1.4 (0.9-1.1); Prothrombin Time 14.4 Seconds (9.0-12.0)
--- NOTE | 2022-08-11 10:48 | Electrocardiogram Report ---
Test Reason : Blood Pressure : / mmHG Vent. Rate : 107 BPM Atrial Rate : 108 BPM P-R Int : 000 ms QRS Dur : 078 ms QT Int : 346 ms P-R-T Axes : 000 -15 001 degrees QTc Int : 461 ms Sinus tachycardia Low voltage QRS possible Inferior infarct (cited on or before 10-AUG-2022) Cannot rule out Anterior infarct , age undetermined Abnormal ECG Reconfirmed by Roge Epps ([id number]) on 08/11/2022 10:47:56 AM Referred By: REFERRED SELF Confirmed By:Fede Epps
--- NOTE | 2022-08-11 11:49 | Gastrointestinal Consultation ---
Date of Consultation August 11, 2022 Assessment & Plan (1) Alcoholic cirrhosis of liver: (2) Portal hypertension: (3) Melena: (4) Abdominal ascites: Plan -<2 gm sodium daily -Avoid NSAIDs, limit Tylenol to <2 gm daily -Continue Protonix gtt for now; continue to monitor H/H -Keep NPO after midnight for EGD for further evaluation tomorrow -Paracentesis and fluid studies ordered -Obtain liver MRI as outpatient to evaluate liver lesion along with AFP given concern for HCC -Avoid alcohol and substances harmful to the liver -Will arrange for outpatient hepatology evaluation -Continue Lasix 20 mg & Aldactone 50 mg daily and can titrate up as tolerated -No signs of HE at present, however would avoid constipation and aim to move bowels 3-4 times daily -Follow MELD labs daily History of Present Illness Reason for Consultation: GIB with suspected cirrhosis Attending Physician: Bev Lanier MD History of Present Illness Patient is a 62 yo male with PMH of alcohol abuse, BPY, asthma, depression, anxiety, HTN, and HLD. He notes he has had progressive SOB & abdominal discomfort for several months. He came to the ED for evaluation. He does not take his home medications consistently. He notes that his abdomen was diffusely tender without a focal area of concern. He denies hematemesis, hematochezia, coffee ground emesis. In the past he notes he has seen stool that appears darker, but acknowledges that this has not been a current problem for the past week. He denies history of colonoscopy/EGD. He notes his dad and brother struggled with alcohol use as well. The patient notes that for years he drank 15 drinks daily, but over the past several weeks he has cut back to 1-2 drinks daily. He denies jaundice. Last alcohol beverage was on 08/10/22. CT scan of the abdomen/pelvis suggests large volume abdominal ascites and cirrhosis as well as findings consistent with portal hypertension. There was also a question regarding a possible 9 mm lesion of the right hepatic lobe. MCV 101.2. H/H 9.4/25.7. INR 1.4. MELD score 20. T bili 3.3. AST/ALT normal. AP normal. Patient notes abdominal discomfort. He denies other physical symptoms with the exception of dyspnea on exertion. He is hemodynamically stable and does not appear to have an acute GI bleed/variceal bleed. He has been started on Lasix 20 mg daily & Aldactone 50 mg daily per his hospitalist team. He is currently on a Protonix gtt. Allergies Allergy/AdvReac Type Severity Reaction Status Date / Time amlodipine [From [facility]] AdvReac Unknown PT UNAWARE Verified 08/10/22 18:22 OF THIS ALLERGY OR REACTION??? Home Medications Medication Instructions Recorded Confirmed Type acetaminophen 500 mg tablet 1,000 mg PO DIRECTED PRN 08/10/22 08/10/22 History (Tylenol Extra Strength) FEVER/PAIN dextromethorphan-guaifenesin 10 10 ml PO DIRECTED PRN Cough 08/10/22 08/10/22 History mg-100 mg/5 mL oral liquid guaifenesin 600 mg tablet, 600 mg PO Q12H PRN Congestion 08/10/22 08/10/22 History extended release 12 hr (Mucinex) lorazepam 0.5 mg tablet 0.5 mg PO DIRECTED PRN PER PT'S 08/10/22 08/10/22 History , NOT A PT MED Patient History Medical History Asthmatic bronchitis Blurred vision BPH (benign prostatic hyperplasia) Dermatitis Elevated liver enzymes Erectile dysfunction Hyperlipidemia Hypertension Impaired fasting glucose Surgical History History of tonsillectomy and adenoidectomy Family History Father Heart disease Cardiomegaly Pacemaker Cardiac rhythm disorder or disturbance or change Mother Heart disease Pacemaker Social History Smoking Status: Former smoker Hx Alcohol Use: Yes Alcohol type: hard liquor Hx Substance Use: Yes Substance Use Type Other:: used last evening Preferred Language: Malay Communication Ability: Effective Experimental [employer] Required: No Beliefs That Will Affect Care: None marital status: / Current Living Situation: Spouse current occupational status: employed 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 Other Information That Helps Us Care for You: No Feels Safe at Home: Yes Safety Concerns: Feels Safe At This Time Childhood Exposure to Second-Hand Smoke: No Assistive Devices: None Review of Systems Constitutional: + fatigue; no fever and no chills Respiratory: no cough and no dyspnea Cardiovascular: no chest pain Gastrointestinal: + abdominal pain and + melena (intermittent dark stools) Results & Data ([facility]) Vital Signs (Past 12 Hours) Vital Signs Temp Pulse Pulse Resp BP Pulse Ox O2 Del Method 08/11/22 08:11 36.6 C 92 H 18 103/73 95 Room Air 08/11/22 07:56 99 H 08/11/22 03:08 36.8 C 86 18 105/75 95 Room Air 08/11/22 00:25 95 H PG Care Time/CCT Total # of Minutes Spent Total Time Spent with Patient: Total time spent is greater than 50% in coordination of care (as documented) at patient's floor/unit and/or counseling patient: Coding Level of Care Code 30047 Inpt Consult Level 4 Diagnoses Alcoholic cirrhosis of liver K70.30 Portal hypertension K76.6 Melena K92.1 Abdominal ascites R18.8
--- NOTE | 2022-08-11 15:38 | Ultrasound Report ---
US paracentesis abd w/image CLINICAL HISTORY: 62 years-old Male with ascites. Cirrhosis with ascites COMPARISON: CT 08/10/2022 PROCEDURE: The procedure was explained to the patient in the care including the benefits and possible risks/complications. The patient gave verbal understanding and written consent was obtained. A time -out was performed prior to the start of the procedure. The patient was placed on the ultrasound table in the supine position. Using ultrasound guidance, an appropriate procedure site in the left lower abdomen was marked. This area was then prepped and drape d in the usual sterile fashion. Local anesthesia was achieved within 1% lidocaine. An 8-Kazakh LOCK8 is catheter was then inserted. Approximately 11 liters of clear, yellowish fluid was removed and 1 L was sent to the lab for analysis. The catheter was removed and external pressure was held to achieve hemostasis. A sterile dressing was applied to the procedure site. The patient tolerated the procedure well without immediate complicati ons. IMPRESSION: Successful ultrasound-guided paracentesis with removal of 11 L ascitic fluid ACT 112: Negative or not required by law. The above report was generated using voice recognition software. It may contain grammatical, syntax o r spelling errors. Electronically signed by: Virgil Hanley M.D. 08/11/2022 3:37 PM
--- NOTE | 2022-08-11 16:27 | Hospitalist Progress Note ---
Date of Service August 11, 2022 Assessment & Plan (1) Ascites: Plan: Alcohol abuse, suspected failure change/cirrhosis Last drink 2:30 PM on 08/10/2022. For alcohol free days last week due to feeling very full, previously drinking up to 15 shots per day without any alcohol free days for several years AST 50, ALT 17, total bilirubin 4.4 on admission. DDx includes biliary disease, imaging pending and patient has had no post prandial pain or focal right upper quadrant pain. Ojeda's negative -MELD: 22, 19% 3-month mortality -Child Hatch 10, borderline class C -[facility] discriminant function: 14.5. Glucocorticoids not indicated at this time Sodium restriction 2 g daily. NPO while eval for GIB Spironolactone 50/Lasix 20 mg daily started Thiamine high-dose protocol ordered Folic acid daily MIMI S with Librium active protocol given high intake for many years and elevated risk Hepatitis panel pending -For paracentesis -For EGD tomorrow -Outpatient Liver MRI -Appreciate GI recs Melena No known esophageal varices. Imaging pending, if varices --> octreotide. Patient has never had a colonoscopy or endoscopy Hemoglobin 11.6, no indication for transfusion at this time Hemoglobin trended q8h DDx includes upper GI bleed versus varices GI consulted. - Rocephin 1g QD SBP prophylaxis Iron studies pending, b12/folate pending PPI drip continued for potential GERD/peptic ulcer disease, patient does not have focal epigastric pain but does endorse diffuse abdominal discomfort/pressure with his ascites -EGD tomorrow Shortness of breath CTA PE did not show evodence of PE CXR without edema/consolidation Patient with substantial ascites,? Fluid overload and pressure US guided paracentesis w/ analysis ordered for 08/11 Hypomagnesemia 1.3 on admission, oral and IV repletion ordered Hypertension Lasix/spironolactone as above, follow Med reconciliation, patient has taken no medications in over a year other than some of his 's lorazepam intermittently and rarely OTC medications. DVT prophylaxis: Pharmacal prophylaxis deferred in the setting of melena/concern for bleed Diet: N.p.o., when able to tolerate p.o. low-salt Disposition: Telemetry CODE STATUS: Full code (2) Alcohol abuse: (3) Hypertension: (4) Hyperlipidemia: (5) Elevated liver enzymes: (6) Impaired fasting glucose: (7) Melena: Plan continue hospitalization Admission and Anticipated Discharge Date Admission Date: August 10, 2022 Subjective patient seen and examined, abdomen still distended and painful Review of Systems Review of Systems: All systems reviewed are negative, apart from the ones contained in the history. Physical Exam Physical Exam: The patient is awake, alert and oriented 3, well developed and well nourished, normocephalic and atraumatic, lying in bed and in no acute distress. HEENT--PERRL, EOMI, mucous membranes and oropharynx mildly dry Neck--supple. No JVD. No bruits. Thyroid normal, trachea midline, no adenopathy. Heart--normal S1 and S2. No murmurs, rubs or gallops. Lungs--clear bilaterally, no respiratory distress, no accessory muscle use. Abdomen--distended Extremities--no cyanosis or clubbing. No edema. Dermatologic--normal skin turgor, normal color, no abnormal lymph nodes, no rash. Neurologic--cranial nerves II through XII grossly intact. Rheumatologic--normal range of motion. Psychiatric--normal affect. Results & Data Results & Data ([facility]) Vital Signs (Past 12 Hours) Vital Signs Temp Pulse Pulse Resp BP Pulse Ox O2 Del Method 08/11/22 15:47 97.9 F 98 H 18 122/82 96 Room Air 08/11/22 12:02 98.2 F 98 H 18 107/72 97 Room Air 08/11/22 08:11 97.9 F 92 H 18 103/73 95 Room Air 08/11/22 07:56 99 H PG Care Time/CCT Total # of Minutes Spent Total Time Spent with Patient: Total time spent is greater than 50% in coordination of care (as documented) at patient's floor/unit and/or counseling patient: Coding Level of Care Code 06305 Subseq Hosp Care Lvl 2 Diagnoses Ascites R18.8 Alcohol abuse F10.10 Hypertension I10 Hyperlipidemia E78.5 Elevated liver enzymes R74.8 Impaired fasting glucose R73.01 Melena K92.1 Time Spent (min) 35
[2022-08-11] MEDS: ALBUMIN 25% 100 mL 25 GM/100 ML VIAL IV SCH ×3 (17:03→21:51)
[2022-08-11 17:14] LABS: Appearance Peritoneal Fluid Clear; Color Peritoneal Fluid Yellow; Lymphocytes, Fluid 59 %; Mono,Macrophage,Mesothelial 21 %; Neutrophils, Fluid 20 %; RBC Peritoneal Fluid (A) < 2000 /uL; WBC Peritoneal Fluid (A) 173 /ul (0-300)
[2022-08-11] MEDS: cefTRIAXone SODIUM 1,000 MG in DEXTROSE 5% 50 ML IV SCH (21:39)
[2022-08-12] MEDS: PANTOprazole 40 MG in DEXTROSE 5% 100 ML IV SCH ×2 (04:16→09:35)
[2022-08-12] MEDS: chlordiazePOXIDE HCl 25 MG CAP PO SCH ×2 (04:20→13:21)
[2022-08-12 06:50] LABS: Albumin Level 2.6 gm/dl (3.4-5.0); Bilirubin Direct 1.5 mg/dl (0-0.2); Bilirubin,Total 2.9 mg/dl (0.2-1.0); Total Protein 5.4 gm/dl (6.0-8.3)
[2022-08-12] MEDS: THIAMINE HCL 100 MG in SYRINGE 9 ML IV SCH (09:35)
[2022-08-12] MEDS: SPIRONOLACTONE 25 MG TAB PO SCH (09:42)
[2022-08-12] MEDS: MAGNESIUM OXIDE 400 MG TAB PO SCH ×2 (09:42→20:56)
[2022-08-12] MEDS: FOLIC ACID 1 MG TAB PO SCH (09:42)
[2022-08-12] MEDS: FUROSEMIDE INJ 20 MG/2 ML VIAL IV SCH (09:43)
--- NOTE | 2022-08-12 09:47 | History & Physical Bridge Note ---
Date of Service August 12, 2022 History & Physical Bridge Note I have examined the patient, reviewed the History & Physical and in the interval since the performance of the History & Physical I have noted the following changes of clinical significance: no changes noted. Patient has been NPO since Midnight. Feeling better since paracentesis. Patient denies any current issues with nausea, vomiting, dysphagia, heartburn, abdominal pain, unintentional weight loss, change in bowels, melena, or bright red blood per rectum. no sob or chest pain. Planned for EGD today.
--- NOTE | 2022-08-12 10:22 | Anesthesiology Consultation ---
Date of Service August 12, 2022 History Surgery Operation Date: 08/12/22 16:30 Proposed Procedures p Esophagogastroduodenoscopy Dr. Mims - Jacob Mims MD Height/Weight Height: 5 ft 6 in Weight: 73.4 kg Allergies Allergy/AdvReac Type Severity Reaction Status Date / Time amlodipine [From [facility]] AdvReac Unknown PT UNAWARE Verified 08/10/22 18:22 OF THIS ALLERGY OR REACTION??? Medications Home Medications Medication Instructions Recorded Confirmed Last Taken acetaminophen 500 mg tablet 1,000 mg PO DIRECTED PRN 08/10/22 08/10/22 Unknown (Tylenol Extra Strength) FEVER/PAIN dextromethorphan-guaifenesin 10 10 ml PO DIRECTED PRN Cough 08/10/22 08/10/22 Unknown mg-100 mg/5 mL oral liquid guaifenesin 600 mg tablet, 600 mg PO Q12H PRN Congestion 08/10/22 08/10/22 Unknown extended release 12 hr (Mucinex) lorazepam 0.5 mg tablet 0.5 mg PO DIRECTED PRN PER PT'S 08/10/22 08/10/22 Unknown , NOT A PT MED Active Medications Generic Name Dose Route Start Last Admin Trade Name Freq PRN Reason Stop Dose Admin Chlordiazepoxide HCl 25 mg 08/10/22 20:53 08/12/22 04:20 Chlordiazepoxide Hcl 25 Mg Cap PO 08/12/22 20:52 25 mg Q8H JUSTINO Administration Taper Folic Acid 1 mg 08/11/22 09:00 08/12/22 09:42 Folic Acid 1 Mg Tab PO 09/10/22 08:59 1 mg QAM JUSTINO Administration Furosemide 20 mg 08/11/22 09:00 08/12/22 09:43 Furosemide Inj 20 Mg/2 Ml Vial IV 09/10/22 08:59 Not Given DAILY JUSTINO Pantoprazole Sodium 40 mg/ 100 mls @ 20 mls/hr 08/10/22 17:45 08/12/22 09:35 Dextrose IV 09/09/22 17:44 8 mg/hr Q5H JUSTINO 20 mls/hr Administration 8 MG/HR Ceftriaxone Sodium 1,000 mg/ 60 mls @ 100 mls/hr 08/10/22 22:00 08/11/22 22:15 Dextrose IV 08/12/22 21:59 Infused Q24H JUSTINO Infusion Protocol Thiamine HCl 100 mg/ Syringe 10 mls @ 2 mls/min 08/12/22 09:00 08/12/22 09:35 IV 09/11/22 08:59 2 mls/min QAM JUSTINO Administration Magnesium Oxide 400 mg 08/10/22 21:00 08/12/22 09:42 Magnesium Oxide 400 Mg Tab PO 09/09/22 20:59 400 mg BID JUSTINO Administration Spironolactone 50 mg 08/11/22 09:00 08/12/22 09:42 Spironolactone 25 Mg Tab PO 09/10/22 08:59 50 mg QAM JUSTINO Administration Past Medical History Medical History Abdominal ascites Accelerated junctional rhythm Alcohol abuse Alcoholic cirrhosis of liver Anemia Asthmatic bronchitis Blurred vision BPH (benign prostatic hyperplasia) Depression with anxiety Dermatitis Elevated LFTs Elevated liver enzymes Erectile dysfunction ETOH abuse Hyperlipidemia Hypertension Impaired fasting glucose Melena Noncompliance with medication regimen Portal hypertension Past Family History Family History Father Heart disease Cardiomegaly Pacemaker Cardiac rhythm disorder or disturbance or change Mother Heart disease Pacemaker Past Surgical History Surgical History History of tonsillectomy and adenoidectomy Social History Smoking Status: Former smoker tobacco type: cigarettes Hx Alcohol Use: Yes Alcohol type: hard liquor alcohol intake frequency: other Alcohol Intake Frequency Comment: 15 shots/day - last drink pt stated was prior to leaving for hospital today Hx Substance Use: Yes substance use type: marijuana Substance Use Type Other:: used last evening Physical Exam Vital Signs Last Vital Signs Temp 36.4 C L 08/12/22 08:59 Pulse 90 08/12/22 08:59 Resp 18 08/12/22 08:59 BP 94/60 L 08/12/22 09:38 Pulse Ox 94 08/12/22 08:59 O2 Del Method 08/12/22 08:59 Testing Laboratory Results 08/11/22 07:21 08/11/22 07:21 PT 14.4 Seconds (9.0-12.0) H 08/11/22 07:21 INR 1.4 (0.9-1.1) H 08/11/22 07:21 APTT 31.9 Seconds (21.0-31.0) H 08/10/22 15:57 Blood Type O Positive 08/10/22 17:31 Antibody Screen NEGATIVE 08/10/22 17:31 08/11/22 15:29 Gram Stain - Final Peritoneal Fluid
[2022-08-12] MEDS ORDERED: PROPOFOL IV EMULSION 10 MG/ML 20 ML VIAL IV ONE (10:42)
[2022-08-12] MEDS ORDERED: LIDOCAINE 2% MPF LOCAL 5 ML VIAL INFIL ONE (10:42)
[2022-08-12] MEDS ORDERED: ONDANSETRON INJ 2 MG/ML 2 ML VIAL ONE (10:42)
[2022-08-12] MEDS ORDERED: MIDAZOLAM HCL 1 MG/ML 2ML VIAL ONE (10:42)
[2022-08-12] MEDS ORDERED: ALBUTEROL HFA INHALER 8.5 GM INH ONE (10:48)
[2022-08-12] MEDS ORDERED: PHENYLEPHRINE 100MCG/ML 5ML SYR ONE (11:28)
--- NOTE | 2022-08-12 11:39 | GI REPORT ---
Patient Name: Suresh Pa Procedure Date: 08/12/2022 11:10 AM Date of : 1960 Admit Type: Inpatient Age: 62 Gender: Male Attending MD: Jacob Mims MD Procedure: Upper GI endoscopy Providers: Jacob Mims MD Referring MD: Bev Lanier Md Indications: Suspected upper gastrointestinal bleeding Medicines: Monitored Anesthesia Care Complications: No immediate complications. Estimated blood loss: None. Estimated Blood Loss: Estimated blood loss: none. Procedure: Pre-Anesthesia Assessment: - Prior Anticoagulants: The patient has taken no previous anticoagulant or antiplatelet agents. - ASA Grade Assessment: II - A patient with mild systemic disease. After obtaining informed consent, the endoscope was passed under direct vision. Throughout the procedure, the patient's blood pressure, pulse, and oxygen saturations were monitored continuously. The Endoscope was introduced through the mouth, and advanced to the second part of duodenum. The upper GI endoscopy was accomplished without difficulty. The patient tolerated the procedure well. Findings: The examined esophagus was normal. no evidence of varices. Mild portal hypertensive gastropathy was found in the stomach. The duodenal bulb and second portion of the duodenum were normal. Impression: - Normal esophagus. - Portal hypertensive gastropathy. - Normal duodenal bulb and second portion of the duodenum. - No specimens collected. Recommendation: - [facility] to [facility] for [facility] care. - Advance diet as tolerated today. supportive care -follow up in 2-3 weeks as an outpatient with [facility]. Jacob Mims MD 08/12/2022 11:38:38 AM This report has been signed electronically. Note Initiated On: 08/12/2022 11:10 AM Number of Addenda: 0 I attest to the content of the Intraoperative Record and orders documented therein, exceptions below {[id number]}
[2022-08-12 11:51] LABS: HBSAG NON-REACTIVE (NON-REACTIVE); Hepatitis A Antibody IgM NON-REACTIVE (NON-REACTIVE); Hepatitis B Core Antibody IgM NON-REACTIVE (NON-REACTIVE)
--- NOTE | 2022-08-12 12:55 | Anesthesiology Progress Note ---
Date of Service August 12, 2022 Anesthesia Post Procedure Vital Signs Vital Signs: Temp Pulse Pulse Resp BP BP Pulse Ox 08/12/22 12:01 89 16 93/67 L 95 08/12/22 11:47 88 16 91/59 L 95 08/12/22 11:33 36.9 C 84 18 113/77 99 08/12/22 11:33 08/12/22 10:32 36.9 C 95 H 18 109/75 96 08/12/22 09:38 94/60 L 08/12/22 08:59 36.4 C L 90 18 83/47 L 94 08/12/22 07:31 91 H 08/12/22 03:49 36.9 C 88 18 92/60 L 95 08/12/22 01:13 89 08/11/22 23:32 37.0 C 87 16 92/58 L 96 08/11/22 19:37 37.0 C 84 16 103/66 97 08/11/22 15:47 36.6 C 98 H 18 122/82 96 O2 Del Method O2 Flow Rate 08/12/22 12:01 Room Air 08/12/22 11:47 Room Air 08/12/22 11:33 Oxymask 5 08/12/22 11:33 Room Air 08/12/22 10:32 Room Air 08/12/22 09:38 08/12/22 08:59 Room Air 08/12/22 07:31 08/12/22 03:49 Room Air 08/12/22 01:13 08/11/22 23:32 Room Air 08/11/22 19:37 Room Air 08/11/22 15:47 Room Air Transfer of Care Handoff Completed per policy Notes Mental Status: alert / awake / arousable and participated in evaluation Patient Amnestic to Procedure: Yes Nausea / Vomiting: adequately controlled Pain: adequately controlled Airway Patency, RR, SpO2: stable & adequate BP & HR: stable & adequate Hydration State: stable & adequate Anesthetic Complications: no major complications apparent
--- NOTE | 2022-08-12 15:28 | Hospitalist Progress Note ---
Date of Service August 12, 2022 Assessment & Plan (1) Ascites: Plan: Abdominal Distension: From ascites He is now post paracentesis with removal of 11L of fluids, under albumin Feels better Alcohol abuse, suspected failure change/cirrhosis Last drink 2:30 PM on 08/10/2022. For alcohol free days last week due to feeling very full, previously drinking up to 15 shots per day without any alcohol free days for several years AST 50, ALT 17, total bilirubin 4.4 on admission. DDx includes biliary disease, imaging pending and patient has had no post prandial pain or focal right upper quadrant pain. Ojeda's negative -MELD: 22, 19% 3-month mortality -Child Hatch 10, borderline class C -Madrey discriminant function: 14.5. Glucocorticoids not indicated at this time Sodium restriction 2 g daily. NPO while eval for GIB Spironolactone 50/Lasix 20 mg daily started Thiamine high-dose protocol ordered Folic acid daily MIMI S with Librium active protocol given high intake for many years and elevated risk Hepatitis panel pending -For Outpatient Liver MRI -Appreciate GI recs Melena -He is now post EGD, no evidence of varices or variceal bleed, only portal hypertensive gastropathy PPI drip discontinued by GI -Continue PO Protonix Shortness of breath CTA PE did not show evodence of PE CXR without edema/consolidation Patient with substantial ascites,? Fluid overload and pressure US guided paracentesis w/ analysis ordered for 08/11 Hypomagnesemia repleted Hypertension Lasix/spironolactone as above, follow Med reconciliation, patient has taken no medications in over a year other than some of his 's lorazepam intermittently and rarely OTC medications. DVT prophylaxis: Pharmacal prophylaxis deferred in the setting of melena/concern for bleed Diet: N.p.o., when able to tolerate p.o. low-salt Disposition: Telemetry CODE STATUS: Full code (2) Alcohol abuse: (3) Hypertension: (4) Hyperlipidemia: (5) Elevated liver enzymes: (6) Impaired fasting glucose: (7) Melena: Plan d/c tomorrow Admission and Anticipated Discharge Date Admission Date: August 10, 2022 Subjective patient seen and examined, post EGD and paracentesis Review of Systems Review of Systems: All systems reviewed are negative, apart from the ones contained in the history. Physical Exam Physical Exam: The patient is awake, alert and oriented 3, well developed and well nourished, normocephalic and atraumatic, lying in bed and in no acute distress. HEENT--PERRL, EOMI, mucous membranes and oropharynx mildly dry Neck--supple. No JVD. No bruits. Thyroid normal, trachea midline, no adenopathy. Heart--normal S1 and S2. No murmurs, rubs or gallops. Lungs--clear bilaterally, no respiratory distress, no accessory muscle use. Abdomen--distended Extremities--no cyanosis or clubbing. No edema. Dermatologic--normal skin turgor, normal color, no abnormal lymph nodes, no rash. Neurologic--cranial nerves II through XII grossly intact. Rheumatologic--normal range of motion. Psychiatric--normal affect. Results & Data Results & Data ([facility]) Vital Signs (Past 12 Hours) Vital Signs Temp Pulse Pulse Resp BP Pulse Ox O2 Del Method 08/12/22 13:03 98.4 F 86 18 81/54 L 92 Room Air 08/12/22 12:01 89 16 93/67 L 95 Room Air 08/12/22 11:47 88 16 91/59 L 95 Room Air 08/12/22 11:33 98.4 F 84 18 113/77 99 Oxymask 08/12/22 11:33 Room Air 08/12/22 10:32 98.4 F 95 H 18 109/75 96 Room Air 08/12/22 09:38 94/60 L 08/12/22 08:59 97.5 F L 90 18 83/47 L 94 Room Air 08/12/22 07:31 91 H 08/12/22 03:49 98.4 F 88 18 92/60 L 95 Room Air O2 Flow Rate 08/12/22 13:03 08/12/22 12:01 08/12/22 11:47 08/12/22 11:33 5 08/12/22 11:33 08/12/22 10:32 08/12/22 09:38 08/12/22 08:59 08/12/22 07:31 08/12/22 03:49 PG Care Time/CCT Total # of Minutes Spent Total Time Spent with Patient: Total time spent is greater than 50% in coordination of care (as documented) at patient's floor/unit and/or counseling patient: Coding Level of Care Code 84081 Subseq Hosp Care Lvl 2 Diagnoses Ascites R18.8 Alcohol abuse F10.10 Hypertension I10 Hyperlipidemia E78.5 Elevated liver enzymes R74.8 Impaired fasting glucose R73.01 Melena K92.1 Time Spent (min) 35
[2022-08-13] MEDS: MAGNESIUM OXIDE 400 MG TAB PO SCH (08:00)
[2022-08-13] MEDS: FOLIC ACID 1 MG TAB PO SCH (08:00)
[2022-08-13] MEDS: SPIRONOLACTONE 25 MG TAB PO SCH (08:01)
[2022-08-13] MEDS: FUROSEMIDE INJ 20 MG/2 ML VIAL IV SCH (08:01)
[2022-08-13] MEDS: THIAMINE HCL 100 MG in SYRINGE 9 ML IV SCH (08:01)
--- NOTE | 2022-08-13 16:22 | Discharge Summary ---
Date of Service August 13, 2022 Admission HPI Per Admitting Provider Suresh Pa is a 62-year-old male with a past medical history of alcohol abuse, BPH, asthmatic bronchitis, depression with anxiety, hypertension, and hyperlipidemia who had been lost to past PCP follow-up but comes in with worsening shortness of breath for several weeks. In the ER CXR shows no acute lung consolidation or pulmonary edema. Abdominal ultrasound shows hepatic steatosis, no evidence of acute cholecystitis, no biliary ductal dilation. Reports wanting him to com ein due to stomach pain. gutierrez snot taken any prescription medications in over a year. reports she was away and March for 9 days and then when she returned he had begun to lose weight and have progressive shortness of breath and leg/belly swelling since the end of March. Abdomen has been progressively swelling since then. Abdomen is diffusely tender without focal areas that are worst. Epigastrum is not particularly worse than anywhere else. Had regular clear/thick white phlegm production and some difficulty swallowing. Endorses difficulty swallowing solids since ~March and some food regurgitation. No regurgitating liquids although sometimes 'a littl ehard to get down.' No coughing up blood. No vomiting recently. No nausea with his vomiting. Genearlly related to high alcohol consumption No chest pain, no chest pressure independently but feels belly pressing up into the chest. 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 Notes his bowel movements are very small (only small round balls, but when he wipes the tissue paper is black). No large sticky bowel movements. No hx of colonoscopy or endoscopy Does not eat much. Eating even small amounts of food are both difficult to swallow and immediately feels full with just a few small bites. endorses pain when he changes position in bed at night, denies pain with mealss. Denies scleral icterus/jaundice No FHx of colon or rectal cancer. No fhx cancer. No family hx of early NH. No fhx bleeding problems. Med Hx: No heart problems, no lung problems/. Past HTN, takes no medications. Allergies: None Social: No tobacco product use EtoH History: - Drank alcohol since 11 years old. In the last month drinks a shot or two a day due to feelin full. Prior was drinking ~15 shots per day. Never went without any alchol. Went 4 days without etoh last week due to feeling full and overall poor. No hx of withdrawal sx or seizures. Last drink today just before ER visit (2:30pm on 08/10, x1 shot). uses marijuana periodically, helps with abdominal pain. No recreational drug use. Surrogate DM would be . Full Code. No leukocytosis. Hemoglobin 11.6, last 2 years ago 14.7. MCV 101.2 in the setting of alcohol use. Iron studies pending INR 1.4, no prior anticoagulant use Sodium 130, potassium 4.2 Creatinine at baseline is normal. On admission creatinine 0.96. Total bilirubin 4.4, AST 50, ALT 17. Troponin BMP COVID pending Principal Diagnosis aacites, cirhosis Discharge Exam The patient is awake, alert and oriented 3, well developed and well nourished, normocephalic and atraumatic, lying in bed and in no acute distress. HEENT--PERRL, EOMI, mucous membranes and oropharynx mildly dry Neck--supple. No JVD. No bruits. Thyroid normal, trachea midline, no ladarius opathy. Heart--normal S1 and S2. No murmurs, rubs or gallops. Lungs--clear bilaterally, no respiratory distress, no accessory muscle use. Abdomen--distended Extremities--no cyanosis or clubbing. No edema. Dermatologic--normal skin turgor, normal color, no abnormal lymph nodes, no rash. Neurologic--cranial nerves II through XII grossly intact. Rheumatologic--normal range of motion. Psychiatric--normal affect. Discharge Data Allergies Allergy/AdvReac Type Severity Reaction Status Date / Time amlodipine [From [facility]] AdvReac Unknown PT UNAWARE Verified 08/12/22 10:36 OF THIS ALLERGY OR REACTION??? Consultations 08/10/22 17:44 ED Decision to Admit Stat 08/10/22 20:53 Consult Gastroenterology Routine Procedures Performed Operation Date: 08/12/22 16:30 Actual Procedures p Esophagogastroduodenoscopy - Jacob Mims MD Ordered Studies 08/10/22 17:24 CT Abd and Pelvis [CT abd pelvis IV con only] Stat CT angio chest PE protocol Stat 08/11/22 09:00 US paracentesis abd w/image Routine Hospital Course (1) Ascites: Abdominal Distension: From ascites He is now post paracentesis with removal of 11L of fluids, under albumin Feels better Alcohol abuse, suspected failure change/cirrhosis Last drink 2:30 PM on 08/10/2022. For alcohol free days last week due to feeling very full, previously drinking up to 15 shots per day without any alcohol free days for several years AST 50, ALT 17, total bilirubin 4.4 on admission. DDx includes biliary disease, imaging pending and patient has had no post prandial pain or focal right upper quadrant pain. Ojeda's negative -MELD: 22, 19% 3-month mortality -Child Hatch 10, borderline class C -Madrey discriminant function: 14.5. Glucocorticoids not indicated at this time Sodium restriction 2 g daily. NPO while eval for GIB Spironolactone 50/Lasix 20 mg daily started Thiamine high-dose protocol ordered Folic acid daily MIMI S with Librium active protocol given high intake for many years and elevated risk Hepatitis panel pending -For Outpatient Liver MRI -Appreciate GI recs Melena -He is now post EGD, no evidence of varices or variceal bleed, only portal hypertensive gastropathy PPI drip discontinued by GI -Continue PO Protonix Shortness of breath CTA PE did not show evodence of PE CXR without edema/consolidation Patient with substantial ascites,? Fluid overload and pressure US guided paracentesis w/ analysis ordered for 08/11 Hypomagnesemia repleted Hypertension Lasix/spironolactone as above, follow Med reconciliation, patient has taken no medications in over a year other than some of his 's lorazepam intermittently and rarely OTC medications. DVT prophylaxis: Pharmacal prophylaxis deferred in the setting of melena/concern for bleed Diet: N.p.o., when able to tolerate p.o. low-salt Disposition: Telemetry CODE STATUS: Full code (2) Alcohol abuse: (3) Hypertension: (4) Hyperlipidemia: (5) Elevated liver enzymes: (6) Impaired fasting glucose: (7) Melena: Plan d/c home, follow up with GI Total Time Total Time Spent Total Time Spent (In Minutes): 35 Discharge Plan Discharge Items Patient Disposition: Home - Self-Care Reason For Visit: SOB, ACIITIES, SUSPECT ETOH CIRRHOSIS Discharge Diagnosis: cirrhosis, ascites Activity: Resume your previous activity Non-emergency contact: Primary Care Provider and Lint Cleaner Call non-emergency contact if: you have any medication questions Follow-up/Referrals: Cynthia Llamas PA-C [Physician Systems Protection Technician] - 08/14/22 3:00 pm Margo Graves PA-C [Physician Systems Protection Technician] - 08/15/22 8:40 am Diet: Low Sodium (2gm) Addtl Attending Provider Instructions: please make appointment to schedule a visit with gastroenterology as soon as possible Pending Studies at Discharge: No Stand-Alone Forms: My [facility] [employer], Smoking Cessation Medications and DC Order Prescriptions: New spironolactone 25 mg Tablet 50 mg PO QAM 30 Days Qty: 60 0RF lactulose 20 gram/30 mL solution 20 g PO TID Qty: 1200 0RF Continued dextromethorphan-guaifenesin 10-100 mg/5 mL Liquid 10 ml PO DIRECTED PRN (Reason: Cough) guaifenesin [Mucinex] 600 mg Tablet Extended Release 12hr 600 mg PO Q12H PRN (Reason: Congestion) Discontinued acetaminophen [Tylenol Extra Strength] 500 mg Tablet 1,000 mg PO DIRECTED PRN (Reason: FEVER/PAIN) lorazepam 0.5 mg Tablet 0.5 mg PO DIRECTED PRN (Reason: PER PT'S , NOT A PT MED) Discharge Orders: Discharge Order (Routine); Ordered 08/13/22 Ordered By: Bev Lanier Admission Data Admit Date/Time: 08/10/22 18:22 Attending Provider: Bev Lanier Admit Provider: Henrry Thorne Primary Care Provider: Roge Childers Other Providers: Henrry Thorne ; Norma Jones Other Interventions: Discharge Summary Assessment (RN) Last Done: 08/13/22 12:57 Coding Level of Care Code D/C DAY MANAGEMENT >30 MINS Diagnoses Ascites R18.8 Alcohol abuse F10.10 Hypertension I10 Hyperlipidemia E78.5 Elevated liver enzymes R74.8 Impaired fasting glucose R73.01 Melena K92.1 Time Spent (min) 35
[2022-08-14] MEDS ORDERED: chlordiazePOXIDE HCl 5 MG CAP PO SCH (08:00)
== END 2022-08-13 17:42 | disposition home or self-care (01) | DRG 433 ==
LOC: ED 15:27 → 4W 18:22 → SUATTDRO 18:22 → 4W 21:00

== ENCOUNTER 2022-09-12 18:47 | Inpatient (IN) ==
[2022-09-12 20:10] LABS: Basophils # (auto) 0.05 K/uL (0-0.2); Basophils % (auto) 0.8 %; Eosinophils # (auto) 0.09 K/uL (0-0.50); Eosinophils % (auto) 1.4 %; Hematocrit (blood only) 31.4 % (40.1-51.0); Hemoglobin 11.2 g/dl (14.0-18.0); Immature Granulocytes # (auto) 0.02 K/uL (0.00-0.02); Immature Granulocytes % (auto) 0.3 %; Lymphocytes # (auto) 1.89 K/uL (1.2-3.4); Mean Corpuscular Hemoglobin 33.4 pg (25.0-34.0); Mean Corpuscular Hgb Conc 35.7 g/dL (32.0-36.0); Mean Corpuscular Volume 93.7 fL (80.0-100.0); Mean Platelet Volume 9.9 fL (9.4-12.4); Monocytes # (auto) 0.76 K/uL (0.24-0.82); Monocytes % (auto) 11.7 %; Neutrophils # (auto) 3.71 K/uL (1.4-6.5); Neutrophils % (auto) 56.8 %; Platelet Count 230 K/uL (130-400); RDW Coefficient of Variation 14.5 % (11.5-14.5); RDW Standard Deviation 50.3 fL (36.4-46.3); Red Blood Count 3.35 M/uL (4.63-6.08); White Blood Count 6.52 K/ul (4.8-10.8)
[2022-09-12 20:32] LABS: Albumin Globulin Ratio 0.7 (0.9-2); Albumin Level 2.8 gm/dl (3.4-5.0); BUN Creatinine Ratio 11.4 (10-20); Bilirubin,Total 2.5 mg/dl (0.2-1.0); Calcium 8.6 mg/dl (8.5-10.1); Creatinine Clr Calc Pharmacy 41.6 ml/min; Est GFR (African American) 53.2 ml/min; Est GFR (Non-African American) 45.9 ml/min; Globulin 4.3 gm/dl (2.5-4.0); Potassium 3.9 mmol/L (3.5-5.1); Total Protein 7.1 gm/dl (6.0-8.3)
[2022-09-12] MEDS ORDERED: SODIUM CHLORIDE 0.9% 1000ML 1,000 ML IV ONE (22:26)
[2022-09-12 23:54] LABS: INR 1.3 (0.9-1.1)
--- NOTE | 2022-09-13 00:20 | Emergency Department Note ---
Impression & Plan Renal insufficiency, Hyponatremia, Alcoholic cirrhosis, Depression with suicidal ideation ED Provider Note NAME: ZEYNEP GUEVARA AGE: 62 SEX: M ARRIVES VIA: Walk-In INFORMANT: Patient ED PROVIDER(S): Amado Montalvo MD CHIEF COMPLAINT: Diarrhea PLAN: Disposition: Admit MEDICAL DECISION MAKING: The patient is a 62-year-old gentleman with a past medical history of alcoholic cirrhosis recently diagnosed on admission last month who presents to the emergency department accompanied by his for evaluation of diarrhea which she reports has been persistent over the past several days where he reports that he can have up to 10 episodes a day depending on what he eats and drinks but if he does not take anything in this is less. He does acknowledge that he is on lactulose twice a day and did not realize that the goal for this medication is to have 2-3 loose bowel movements a day. However he reports this only began several days ago. Since his recent admission he denies resuming alcohol consumption. He otherwise denies cough, congestion, chest pain, shortness of breath. He reports he has abdominal discomfort which is similar to what he had on his last admission when he had massive ascites but is not as severe and admits that he does not have a lot of fluid retention at this time. He describes the pain as spasms preceding his loose bowel movements. He denies any urinary symptoms. The patient did arrive to the emergency department and at time of high volume, acuity and prolonged emergency department waiting times. Critical pathways were initiated and he had blood work performed. Upon my evaluation the majority of his blood work had already returned and we were discussing his plan for treatment. When asked if he had any additional concerns he then reported feeling depressed. He describes his depression as ongoing for several years but had never been treated in the past. When asked if he had thoughts of killing himself he replied unequivocally "yes". However he denied feeling this way in this moment but reports at times he feels this way and even has plans of acting it out by shooting himself. He reports he does have a gun in the home. His at the bedside reports that this is the first she is hearing of this severe depression. When asked if she thought he would ever act out on these feelings she reports that she is not sure. We did discuss that the patient would need to have a psychiatric evaluation to determine if it is safe for him to go home or not given his concerning comments. Upon evaluation by our psychiatric case supervisor it was determined that the patient is a safety risk and psychiatric evaluation is warranted. However the patient does have numerous medical comorbidities with new renal insufficiency reasonable to proceed with medical admission and can have psychiatric consultation as well. EKG without overt acute ischemia. WBC and platelets within normal limits. H/H stable-improved from prior. INR 1.3 improved from prior. Chemistry with creatinine of 1.5 which is new consi stent with renal insufficiency. Sodium 128 slightly decreased from prior range of values. Osmolality ordered and pending. Medical alcohol was undetectable. Case was discussed with Dr. Alatorre, [facility] hospitalist, who will evaluate the patient for admission. Triage Nursing notes reviewed and agree them. Prior medical records reviewed Vital Signs: reviewed Differential diagnosis: Infection, dehydration, metabolic abnormality, hypo/hyperglycemia, electrolyte disturbance, anemia, hypoxia, cardiac sources, intracerebral event, toxicologic, neurologic, as well as other pathologies. ER treatment provided: See below. Diagnostics interpreted by me: ECG: Sinus tachycardia, 114 bpm, no ectopy, no overt ST elevation or depression, QTC 490, QRS 72. Cardiac Monitoring: An order for continuous cardiac monitoring was placed and demonstrated Sinus tachycardia, 114 bpm, no ectopy. Laboratory studies: See below Imaging studies: See below Consultation(s): Case was discussed with Dr. Alatorre [facility] hospitalist, who will evaluate the patient for admission. HPI: The patient is a 62-year-old gentleman with a past medical history of alcoholic cirrhosis recently diagnosed on admission last month who presents to the emergency department accompanied by his for evaluation of diarrhea which she reports has been persistent over the past several days where he reports that he can have up to 10 episodes a day depending on what he eats and drinks but if he does not take anything in this is less. He does acknowledge that he is on lactulose twice a day and did not realize that the goal for this medication is to have 2-3 loose bowel movements a day. However he reports this only began several days ago. Since his recent admission he denies resuming alcohol consumption. He otherwise denies cough, congestion, chest pain, shortness of breath. He reports he has abdominal discomfort which is similar to what he had on his last admission when he had massive ascites but is not as severe and admits that he does not have a lot of fluid retention at this time. He describes the pain as spasms preceding his loose bowel movements. He denies any urinary symptoms. The patient did arrive to the emergency department and at time of high volume, acuity and prolonged emergency department waiting times. Critical pathways were initiated and he had blood work performed. Upon my evaluation the majority of his blood work had already returned and we were discussing his plan for treatment. When asked if he had any additional concerns he then reported feeling depressed. He describes his depression as ongoing for several years but had never been treated in the past. When asked if he had thoughts of killing himself he replied unequivocally "yes". However he denied feeling this way in this moment but reports at times he feels this way and even has plans of acting it out by shooting himself. He reports he does have a gun in the home. His at the bedside reports that this is the first she is hearing of this severe depression. When asked if she thought he would ever act out on these feelings she reports that she is not sure. We did discuss that the patient would need to have a psychiatric evaluation to determine if it is safe for him to go home or not given his concerning comments. Upon evaluation by our psychiatric case supervisor it was determined that the patient is a safety risk and psychiatric evaluation is warranted. However the patient does have numerous medical comorbidities with new renal insufficiency reasonable to proceed with medical admission and can have psychiatric consultation as well. ROS: See above HPI for pertinent positives & negatives. A total of 10 systems reviewed and were otherwise negative. VITALS:See Below PHYSICAL EXAMINATION: GENERAL: Awake, alert, fatigued-appearing, in no distress HENT: Normocephalic, atraumatic. Oropharynx with dry mucous membranes and otherwise unremarkable. EYES: Normal conjunctiva. Sclera non-icteric. NECK: Supple. No nuchal rigidity. FROM. No JVD. RESPIRATORY: Clear to auscultation. CARDIAC: Tachycardic rate, normal rhythm. Extremities warm and well perfused. Pulses equal. ABDOMEN: Soft, non-distended. No tenderness to palpation. No rebound or guarding. No masses. RECTAL: Deferred. MUSCULOSKELETAL: Chest examination reveals no tenderness. The back is symm etrical on inspection without obvious abnormality. There is no CVA tenderness to palpation. No joint edema. LOWER EXTREMITIES: Calves are equal size bilaterally and non-tender. No edema. No discoloration. NEURO: Normal sensorium. No sensory or motor deficits noted. SKIN: No rash or jaundice noted. PSYCH: Endorses depression with intermittent SI with plan to shoot himself with his gun. Denies active SI at this time. Amado Montalvo MD Past Med/Surg History Medical History Abdominal ascites Accelerated junctional rhythm Alcohol abuse Alcoholic cirrhosis of liver Anemia Asthmatic bronchitis Blurred vision BPH (benign prostatic hyperplasia) Depression with anxiety Dermatitis Elevated LFTs Elevated liver enzymes Erectile dysfunction ETOH abuse Hyperlipidemia Hypertension Impaired fasting glucose Melena Noncompliance with medication regimen Portal hypertension Surgical History H/O esophagogastroduodenoscopy History of tonsillectomy and adenoidectomy Family History Father Heart disease Cardiomegaly Pacemaker Cardiac rhythm disorder or disturbance or change Mother Heart disease Pacemaker Social History Smoking Status: Never smoker Hx Alcohol Use: Yes Alcohol type: hard liquor Hx Substance Use: Yes Substance Use Type Other:: used last evening Preferred Language: [place] Communication Ability: Effective 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 Home Meds Previous Rx's Medication Instructions Recorded furosemide 20 mg tablet 20 mg PO DAILY #30 tabs 08/19/22 lactulose 20 gram/30 mL oral 20 g (30 mL) PO TID #1,200 mL 08/19/22 solution pantoprazole 40 mg tablet,delayed 40 mg PO DAILY #30 tabs 08/19/22 release potassium chloride 20 mEq oral 20 meq PO DAILY #30 ea 08/19/22 packet (Klor-Con) spironolactone 25 mg tablet 50 mg PO QAM 30 days #60 tabs 08/19/22 Results & Data (ED) Vital Signs Vital Signs - 24 hr 09/12/22 18:48 09/12/22 20:56 09/12/22 22:00 Temperature 36.5 C Temperature Source Temporal Artery Scan Pulse Rate 116 H Pulse Rate [Apical] 108 H 98 H Pulse Rate from SpO2 Sensor Pulse Rhythm [Apical] Regular Regular Pulse Strength [Apical] Normal Normal Respiratory Rate 20 19 18 Respiratory Effort / Characteristics Non-Labored Spontaneous Non-Labored Non-Labored Respiratory Depth Normal Normal Normal Respiratory Pattern Regular Blood Pressure 115/79 Blood Pressure [Right Arm] 127/90 Blood Pressure Mean 91 Blood Pressure Mean [Right Arm] 102 Pulse Oximetry 98 97 98 Oxygen Delivery Method Room Air Room Air Room Air Sepsis Recent Fever Within 48 Hours No Sepsis New/Unexplained Change in Mental Status No Sepsis Action Taken by Nursing No Action Required 09/13/22 02:05 09/12/22 23:05 09/13/22 00:00 Temperature Temperature Source Pulse Rate 104 H 94 H Pulse Rate [Apical] 94 H Pulse Rate from SpO2 Sensor 105 H Pulse Rhythm [Apical] Pulse Strength [Apical] Respiratory Rate 18 18 Respiratory Effort / Characteristics Respiratory Depth Respiratory Pattern Blood Pressure Blood Pressure [Right Arm] 103/74 Blood Pressure Mean Blood Pressure Mean [Right Arm] 83 Pulse Oximetry 98 98 Oxygen Delivery Method Room Air Sepsis Recent Fever Within 48 Hours Sepsis New/Unexplained Change in Mental Status Sepsis Action Taken by Nursing 09/13/22 01:00 09/13/22 02:03 09/13/22 02:04 Temperature Temperature Source Pulse Rate 94 H 94 H Pulse Rate [Apical] Pulse Rate from SpO2 Sensor 94 H 96 H Pulse Rhythm [Apical] Pulse Strength [Apical] Respiratory Rate 19 13 Respiratory Effort / Characteristics Respiratory Depth Respiratory Pattern Blood Pressure Blood Pressure [Right Arm] Blood Pressure Mean Blood Pressure Mean [Right Arm] Pulse Oximetry 96 97 Oxygen Delivery Method Sepsis Recent Fever Within 48 Hours Sepsis New/Unexplained Change in Mental Status Sepsis Action Taken by Nursing 09/13/22 02:04 09/13/22 02:30 09/13/22 02:30 Temperature Temperature Source Pulse Rate 93 H Pulse Rate [Apical] Pulse Rate from SpO2 Sensor 93 H Pulse Rhythm [Apical] Pulse Strength [Apical] Respiratory Rate 15 Respiratory Effort / Characteristics Respiratory Depth Respiratory Pattern Blood Pressure 103/74 104/71 Blood Pressure [Right Arm] Blood Pressure Mean 83 82 Blood Pressure Mean [Right Arm] Pulse Oximetry 97 Oxygen Delivery Method Sepsis Recent Fever Within 48 Hours Sepsis New/Unexplained Change in Mental Status Sepsis Action Taken by Nursing Laboratory Data Attestation: I reviewed the patient's lab results. Result diagrams: 09/12/22 19:50 09/12/22 19:50 Lab Results 09/12/22 09/12/22 09/12/22 Range/Units 19:50 19:50 23:18 WBC 6.52 (4.8-10.8) K/ul RBC 3.35 L (4.63-6.08) M/uL Hgb 11.2 L (14.0-18.0) g/dl Hct 31.4 L (40.1-51.0) % MCV 93.7 (80.0-100.0) fL MCH 33.4 (25.0-34.0) pg MCHC 35.7 (32.0-36.0) g/dL RDW Std Deviation 50.3 H (36.4-46.3) fL RDW Coeff of Elizabeth 14.5 (11.5-14.5) % Plt Count 230 (130-400) K/uL MPV 9.9 (9.4-12.4) fL Immature Gran % (Auto) 0.3 % Neut % (Auto) 56.8 % Lymph % (Auto) 29.0 % [place] % (Auto) 11.7 % Eos % (Auto) 1.4 % Baso % (Auto) 0.8 % Neut # (Auto) 3.71 (1.4-6.5) K/uL Lymph # (Auto) 1.89 (1.2-3.4) K/uL [place] # (Auto) 0.76 (0.24-0.82) K/uL Eos # (Auto) 0.09 (0-0.50) K/uL Baso # (Auto) 0.05 (0-0.2) K/uL Immature Gran # (Auto) 0.02 (0.00-0.02) K/uL PT 14.0 H (9.0-12.0) Seconds INR 1.3 H (0.9-1.1) Sodium 128 L (136-145) mmol/L Potassium 3.9 (3.5-5.1) mmol/L Chloride 100 (98-107) mmol/L Carbon Dioxide 19 L (21-32) mmol/L Anion Gap 9 (3-11) BUN 18 (6-23) mg/dl Creatinine 1.58 H (0.6-1.4) mg/dl Est Cr Clr Drug Dosing 41.6 ml/min Est GFR ( Amer) 53.2 ml/min Est GFR (Non-Af Amer) 45.9 ml/min BUN/Creatinine Ratio 11.4 (10-20) Glucose 113 H (70-99(Fasting)) mg/dl Osmolality (280-300) mOsm/kg Calcium 8.6 (8.5-10.1) mg/dl Total Bilirubin 2.5 H (0.2-1.0) mg/dl AST 37 (13-39) U/L ALT 16 (7-52) U/L Alkaline Phosphatase 93 (34-104) U/L Total Protein 7.1 (6.0-8.3) gm/dl Albumin 2.8 L (3.4-5.0) gm/dl Globulin 4.3 H (2.5-4.0) gm/dl Albumin/Globulin Ratio 0.7 L (0.9-2) Lipase 31 (11-82) U/L Ethyl Alcohol mg/dL (<10.0) mg/dl Adenovirus (PCR) (NotDetected) B. pertussis DNA (PCR) (NotDetected) B.parapertussis DNA PCR (NotDetected) C. pneumoniae DNA (PCR) (NotDetected) Coronavirus OC43 (PCR) (NotDetected) Coronavirus HKU1 (PCR) (NotDetected) Coronavirus 229E (PCR) (NotDetected) SARS-CoV-2 (PCR) (NotDetected) Coronavirus NL63 (PCR) (NotDetected) Human Metapneumovir PCR (NotDetected) Influenza Type A (PCR) (NotDetected) Influenza Type B (PCR) (NotDetected) M. pneumoniae (PCR) (NotDetected) Parainfluenza 1 (PCR) (NotDetected) Parainfluenza 2 (PCR) (NotDetected) Parainfluenza 3 (PCR) (NotDetected) Parainfluenza 4 (PCR) (NotDetected) RSV (PCR) (NotDetected) Entero/Rhino (PCR) (NotDetected) 09/12/22 09/12/22 09/13/22 Range/Units 23:18 23:18 01:12 WBC (4.8-10.8) K/ul RBC (4.63-6.08) M/uL Hgb (14.0-18.0) g/dl Hct (40.1-51.0) % MCV (80.0-100.0) fL MCH (25.0-34.0) pg MCHC (32.0-36.0) g/dL RDW Std Deviation (36.4-46.3) fL RDW Coeff of Elizabeth (11.5-14.5) % Plt Count (130-400) K/uL MPV (9.4-12.4) fL Immature Gran % (Auto) % Neut % (Auto) % Lymph % (Auto) % [place] % (Auto) % Eos % (Auto) % Baso % (Auto) % Neut # (Auto) (1.4-6.5) K/uL Lymph # (Auto) (1.2-3.4) K/uL [place] # (Auto) (0.24-0.82) K/uL Eos # (Auto) (0-0.50) K/uL Baso # (Auto) (0-0.2) K/uL Immature Gran # (Auto) (0.00-0.02) K/uL PT (9.0-12.0) Seconds INR (0.9-1.1) Sodium (136-145) mmol/L Potassium (3.5-5.1) mmol/L Chloride (98-107) mmol/L Carbon Dioxide (21-32) mmol/L Anion Gap (3-11) BUN (6-23) mg/dl Creatinine (0.6-1.4) mg/dl Est Cr Clr Drug Dosing ml/min Est GFR ( Amer) ml/min Est GFR (Non-Af Amer) ml/min BUN/Creatinine Ratio (10-20) Glucose (70-99(Fasting)) mg/dl Osmolality 276 L (280-300) mOsm/kg Calcium (8.5-10.1) mg/dl Total Bilirubin (0.2-1.0) mg/dl AST (13-39) U/L ALT (7-52) U/L Alkaline Phosphatase (34-104) U/L Total Protein (6.0-8.3) gm/dl Albumin (3.4-5.0) gm/dl Globulin (2.5-4.0) gm/dl Albumin/Globulin Ratio (0.9-2) Lipase (11-82) U/L Ethyl Alcohol mg/dL < 10.0 (<10.0) mg/dl Adenovirus (PCR) Not Detected (NotDetected) B. pertussis DNA (PCR) Not Detected (NotDetected) B.parapertussis DNA PCR Not Detected (NotDetected) C. pneumoniae DNA (PCR) Not Detected (NotDetected) Coronavirus OC43 (PCR) Not Detected (NotDetected) Coronavirus HKU1 (PCR) Not Detected (NotDetected) Coronavirus 229E (PCR) Not Detected (NotDetected) SARS-CoV-2 (PCR) Not Detected (NotDetected) Coronavirus NL63 (PCR) Not Detected (NotDetected) Human Metapneumovir PCR Not Detected (NotDetected) Influenza Type A (PCR) Not Detected (NotDetected) Influenza Type B (PCR) Not Detected (NotDetected) M. pneumoniae (PCR) Not Detected (NotDetected) Parainfluenza 1 (PCR) Not Detected (NotDetected) Parainfluenza 2 (PCR) Not Detected (NotDetected) Parainfluenza 3 (PCR) Not Detected (NotDetected) Parainfluenza 4 (PCR) Not Detected (NotDetected) RSV (PCR) Not Detected (NotDetected) Entero/Rhino (PCR) Not Detected (NotDetected) Administered Medications Discontinued Medications Sodium Chloride (Nss 1000ml) 1,000 mls @ 999 mls/hr IV .[id number] ONE Stop: 09/12/22 23:26 Last Infusion: 09/12/22 23:52 Dose: 0 mls/hr Documented By: Admin: 09/12/22 23:04 Dose: 999 mls/hr Documented By: CAYDEN Discharge Plan Visit Data Chief Complaint: Diarrhea Stated Complaint: DIARRHEA, FATIGUE, ABD PAIN ED Provider: Amado Montalvo Discharge Problem: Renal insufficiency, Hyponatremia, Alcoholic cirrhosis, Depression with suicidal ideation Forms Stand Alone Forms: My [facility] Prescriptions Prescriptions: No Action furosemide 20 mg tablet 20 mg PO DAILY Qty: 30 2RF potassium chloride [Klor-Con] 20 mEq packet 20 meq PO DAILY Qty: 30 2RF pantoprazole 40 mg tablet,delayed release (DR/EC) 40 mg PO DAILY Qty: 30 2RF lactulose 20 gram/30 mL solution 20 g PO TID Qty: 1200 11RF spironolactone 25 mg tablet 50 mg PO QAM 30 Days Qty: 60 11RF Referrals Referrals: Roge Childers MD [Primary Care Provider] -
--- NOTE | 2022-09-13 01:11 | History & Physical Report ---
Date of Service September 13, 2022 Assessment & Plan (1) Renal insufficiency: Plan: 62yo male with history of liver cirrhosis secondary to EtOH use presenting with persistent diarrhea, SALIMA with BUN of 18 and Cr of 1.58 from previous value of 0.85 on 08/11/22. Patient does appear clinically dry on exam. He is making urine but reports less than usual. K is acceptable at 3.9 and HCO3 is low at 19. Suspect pre-renal azotemia in setting of diarrhea and poor oral intake. Some concern for hepatorenal syndrome. -Admit to medical -Check urine Na and Cr to calculate FeNA -Check serum CK -Hold nephrotoxic agents -Renal dosing where needed -Will hold diuretics for now - Lasix and Spironolactone -Volume expansion with Albumin 1gm/kg/day x 2 days -Repeat chemistry in AM (2) Alcoholic cirrhosis: Plan: Patient with MELD of 24 now, acutely elevated Cr. Other liver values are near baseline. He has mild ascites. No asterixis. -Holding Lasix and Spironolactone secondary to SALIMA -Hold Lactulose secondary to ongoing diarrhea -GI Consultation appreciated (3) Diarrhea: Plan: Patient with 3 days of profuse, watery diarrhea specifically following eating. He denies blood or mucus. Etiology uncertain - ?infectious. ?SIBO. Patient had a normal AFP level of 1.9 on 08/11/22 for HCC screening -Awaiting stool cultures and c.diff -IVF repletion with Albumin as above -Electrolyte repletion -GI consultation -If no infection identified consider Loperamide (4) Depression with suicidal ideation: Plan: Patient with prior history of depression. Was previously on Lexapro. He has passive SI with a plan to shoot himself. He does own a gun. Verbally contracted for safety while admitted. -Psychiatry consultation appreciated -Maintain 1:1 observation -Safety/Suicide precautions -Temazepam as needed for sleep F/E/N - Albumin as above, monitor electrolytes, Low Na diet as tolerated Ppx - Heparin Code - Full per discussion with patient Dispo - Admit to medical History of Present Illness Chief Complaint: diarrhea Primary Care Provider: Roge Childers MD Suresh Hilliard is a 62yo male with history of liver cirrhosis secondary to EtOH use, BPH and Depression presenting with diarrhea. Patient reports for the last 3 days he has been unable to tolerate food intake. He has watery diarrhea approximately 5 minutes following intake of solid food. He denies blood or mucus in his stool. Frequent abdominal cramping, does get cramping prior to diarrhea episodes. He reports up to 10 stools daily. He has been able to drink fluids without diarrhea following. Patient denies nausea or vomiting. He denies fever but feels as though he is always cold with chills. He has had a chronic cough and SOB since having Covid- 19 in July. No change in these complaints. He does report decreased UOP. He has been taking his medications to include Lasix and Spironolactone as well as Lactulose TID. Patient was recently diagnosed with liver cirrhosis. He follows with GI - last seen 08/19/22. Patient no longer drinks alcohol and has been sober x 32 days. He has had paracentesis x 2 for abdominal ascites. Patient did admit to feeling suicidal and has a loose plan to shoot himself with his gun. He has a history of depression and was previously on Lexapro which he self-discontinued. He wishes to resume depression after discussion with Psychiatry. Verbally contracted for safety ER Course: NSS x 1L Allergies Allergy/AdvReac Type Severity Reaction Status Date / Time amlodipine [From [facility]] AdvReac Unknown PT UNAWARE Verified 09/13/22 00:33 OF THIS ALLERGY OR REACTION??? Home Medications Medication Instructions Recorded Confirmed Type furosemide 20 mg tablet 20 mg PO DAILY #30 tabs 08/19/22 09/13/22 Rx lactulose 20 gram/30 mL oral 20 g (30 mL) PO TID #1,200 mL 08/19/22 09/13/22 Rx solution pantoprazole 40 mg tablet,delayed 40 mg PO DAILY #30 tabs 08/19/22 09/13/22 Rx release potassium chloride 20 mEq oral 20 meq PO DAILY #30 ea 08/19/22 09/13/22 Rx packet ([facility]) spironolactone 25 mg tablet 50 mg PO QAM 30 days #60 tabs 08/19/22 09/13/22 Rx Past Med/Surg History Medical History Abdominal ascites Accelerated junctional rhythm Alcohol abuse Alcoholic cirrhosis of liver Anemia Asthmatic bronchitis Blurred vision BPH (benign prostatic hyperplasia) Depression with anxiety Dermatitis Elevated LFTs Elevated liver enzymes Erectile dysfunction ETOH abuse Hyperlipidemia Hypertension Impaired fasting glucose Melena Noncompliance with medication regimen Portal hypertension Surgical History H/O esophagogastroduodenoscopy History of tonsillectomy and adenoidectomy Family History Father Heart disease Cardiomegaly Pacemaker Cardiac rhythm disorder or disturbance or change Mother Heart disease Pacemaker Social History Smoking Status: Never smoker Hx Alcohol Use: Yes Alcohol type: hard liquor Hx Substance Use: Yes Substance Use Type Other:: used last evening Preferred Language: Amharic Communication Ability: Effective Senior Civil Engineer Required: No Beliefs That Will Affect Care: None marital status: / Current Living Situation: Spouse current occupational status: employed 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 [employer] Feels Safe at Home: Yes Childhood Exposure to Second-Hand Smoke: No Assistive Devices: None Review of Systems Review of Systems: All systems reviewed & are unremarkable except as noted in HPI & below Physical Exam Physical Exam: General: patient resting comfortably, NAD, non-toxic in appearance, AA&O x 4 Skin: warm, dry, intact, no rashes or lesions, mild jaundice HEENT: NC/AT, PERRL, EOMI, mild icterus, conjunctiva without injection, external ear normal to inspection and nontender, nares patent, moist mucus membranes, dentition intact, no oropharyngeal lesions, neck supple, trachea midline, no LAD, no thyromegaly, no JVD Heart: +S1/S2, regular, no m/r/g Lungs: equal air entry bilaterally, no rales/rhonchi/wheezes Abd: +BS, soft, NT/ND, no masses/organomegaly, mild ascites Ext: warm, 2+ pulses in UE/LE bilaterally, no clubbing/cyanosis or edema Neuro: nonfocal, patient AA&O x 4, speech intact, no facial droop, moving all extremities on command with equal strength 5/5, no asterixis Results & Data Results & Data ([facility]) Vital Signs (Past 12 Hours) Vital Signs Temp Pulse Pulse Resp BP BP Pulse Ox 09/12/22 22:00 98 H 18 98 09/12/22 20:56 108 H 19 127/90 97 09/12/22 18:48 36.5 C 116 H 20 115/79 98 O2 Del Method 09/12/22 22:00 Room Air 09/12/22 20:56 Room Air 09/12/22 18:48 Room Air Laboratory Results Laboratory Results WBC 6.52 K/ul (4.8-10.8) 09/12/22 19:50 RBC 3.35 M/uL (4.63-6.08) L 09/12/22 19:50 Hgb 11.2 g/dl (14.0-18.0) L 09/12/22 19:50 Hct 31.4 % (40.1-51.0) L 09/12/22 19:50 MCV 93.7 fL (80.0-100.0) 09/12/22 19:50 MCH 33.4 pg (25.0-34.0) 09/12/22 19:50 MCHC 35.7 g/dL (32.0-36.0) 09/12/22 19:50 RDW Std Deviation 50.3 fL (36.4-46.3) H 09/12/22 19:50 RDW Coeff of Elizabeth 14.5 % (11.5-14.5) 09/12/22 19:50 Plt Count 230 K/uL (130-400) 09/12/22 19:50 MPV 9.9 fL (9.4-12.4) 09/12/22 19:50 Immature Gran % (Auto) 0.3 % 09/12/22 19:50 Neut % (Auto) 56.8 % 09/12/22 19:50 Lymph % (Auto) 29.0 % 09/12/22 19:50 Coleman % (Auto) 11.7 % 09/12/22 19:50 Eos % (Auto) 1.4 % 09/12/22 19:50 Baso % (Auto) 0.8 % 09/12/22 19:50 Neut # (Auto) 3.71 K/uL (1.4-6.5) 09/12/22 19:50 Lymph # (Auto) 1.89 K/uL (1.2-3.4) 09/12/22 19:50 Coleman # (Auto) 0.76 K/uL (0.24-0.82) 09/12/22 19:50 Eos # (Auto) 0.09 K/uL (0-0.50) 09/12/22 19:50 Baso # (Auto) 0.05 K/uL (0-0.2) 09/12/22 19:50 Immature Gran # (Auto) 0.02 K/uL (0.00-0.02) 09/12/22 19:50 PT 14.0 Seconds (9.0-12.0) H 09/12/22 23:18 INR 1.3 (0.9-1.1) H 09/12/22 23:18 Sodium 128 mmol/L (136-145) L 09/12/22 19:50 Potassium 3.9 mmol/L (3.5-5.1) 09/12/22 19:50 Chloride 100 mmol/L (98-107) 09/12/22 19:50 Carbon Dioxide 19 mmol/L (21-32) L 09/12/22 19:50 Anion Gap 9 (3-11) 09/12/22 19:50 BUN 18 mg/dl (6-23) 09/12/22 19:50 Creatinine 1.58 mg/dl (0.6-1.4) H 09/12/22 19:50 Est Cr Clr Drug Dosing 41.6 ml/min 09/12/22 19:50 Est GFR ( Amer) 53.2 ml/min 09/12/22 19:50 Est GFR (Non-Af Amer) 45.9 ml/min 09/12/22 19:50 BUN/Creatinine Ratio 11.4 (10-20) 09/12/22 19:50 Glucose 113 mg/dl (70-99(Fasting)) H 09/12/22 19:50 Osmolality 276 mOsm/kg (280-300) L 09/12/22 23:18 Calcium 8.6 mg/dl (8.5-10.1) 09/12/22 19:50 Total Bilirubin 2.5 mg/dl (0.2-1.0) H 09/12/22 19:50 AST 37 U/L (13-39) 09/12/22 19:50 ALT 16 U/L (7-52) 09/12/22 19:50 Alkaline Phosphatase 93 U/L (34-104) 09/12/22 19:50 Total Protein 7.1 gm/dl (6.0-8.3) 09/12/22 19:50 Albumin 2.8 gm/dl (3.4-5.0) L 09/12/22 19:50 Globulin 4.3 gm/dl (2.5-4.0) H 09/12/22 19:50 Albumin/Globulin Ratio 0.7 (0.9-2) L 09/12/22 19:50 Lipase 31 U/L (11-82) 09/12/22 19:50 Ethyl Alcohol mg/dL < 10.0 mg/dl (<10.0) 09/12/22 23:18 Adenovirus (PCR) Not Detected (NotDetected) 09/13/22 01:12 B. pertussis DNA (PCR) Not Detected (NotDetected) 09/13/22 01:12 B.parapertussis DNA PCR Not Detected (NotDetected) 09/13/22 01:12 C. pneumoniae DNA (PCR) Not Detected (NotDetected) 09/13/22 01:12 Coronavirus OC43 (PCR) Not Detected (NotDetected) 09/13/22 01:12 Coronavirus HKU1 (PCR) Not Detected (NotDetected) 09/13/22 01:12 Coronavirus 229E (PCR) Not Detected (NotDetected) 09/13/22 01:12 SARS-CoV-2 (PCR) Not Detected (NotDetected) 09/13/22 01:12 Coronavirus NL63 (PCR) Not Detected (NotDetected) 09/13/22 01:12 Human Metapneumovir PCR Not Detected (NotDetected) 09/13/22 01:12 Influenza Type A (PCR) Not Detected (NotDetected) 09/13/22 01:12 Influenza Type B (PCR) Not Detected (NotDetected) 09/13/22 01:12 M. pneumoniae (PCR) Not Detected (NotDetected) 09/13/22 01:12 Parainfluenza 1 (PCR) Not Detected (NotDetected) 09/13/22 01:12 Parainfluenza 2 (PCR) Not Detected (NotDetected) 09/13/22 01:12 Parainfluenza 3 (PCR) Not Detected (NotDetected) 09/13/22 01:12 Parainfluenza 4 (PCR) Not Detected (NotDetected) 09/13/22 01:12 RSV (PCR) Not Detected (NotDetected) 09/13/22 01:12 Entero/Rhino (PCR) Not Detected (NotDetected) 09/13/22 01:12 PG Care Time/CCT Total # of Minutes Spent Total Time Spent with Patient: Total time spent is greater than 50% in coordination of care (as documented) at patient's floor/unit and/or counseling patient: Coding Level of Care Code 34590 Initial Inpt Care Lvl 3 Diagnoses Renal insufficiency N28.9 Alcoholic cirrhosis K70.30 Diarrhea R19.7 Depression with suicidal ideation F32.A; R45.851
[2022-09-13 02:15] LABS: Adenovirus PCR Not Detected (NotDetected); Bordetella parapertussis PCR Not Detected (NotDetected); Bordetella pertussis PCR Not Detected (NotDetected); Chlamydia pneumoniae PCR Not Detected (NotDetected); Coronavirus 229E PCR Not Detected (NotDetected); Coronavirus CoV-2 (COVID19)PCR Not Detected (NotDetected); Coronavirus HKU1 PCR Not Detected (NotDetected); Coronavirus NL63 PCR Not Detected (NotDetected); Coronavirus OC43PCR Not Detected (NotDetected); Human Metapneumovirus PCR Not Detected (NotDetected); Influenza A PCR Not Detected (NotDetected); Influenza B PCR Not Detected (NotDetected); Mycoplasma pneumoniae PCR Not Detected (NotDetected); Parainfluenza Virus 1 PCR Not Detected (NotDetected); Parainfluenza Virus 2 PCR Not Detected (NotDetected); Parainfluenza Virus 3 PCR Not Detected (NotDetected); Parainfluenza Virus 4 PCR Not Detected (NotDetected); Respiratory Syncytial VirusPCR Not Detected (NotDetected); Rhinovirus/Enterovirus PCR Not Detected (NotDetected)
[2022-09-13] MEDS ORDERED: ALBUMIN 25% 100 mL 25 GM/100 ML VIAL IV SCH (04:05)
[2022-09-13] MEDS ORDERED: TEMAZEPAM 7.5 MG CAPSULE PO PRN (04:05)
[2022-09-13 07:54] LABS: Magnesium 1.3 mg/dl (1.7-2.4); Phosphorus 3.1 mg/dl (2.5-4.9)
[2022-09-13] MEDS ORDERED: KETOROLAC TROMETHAMINE 15 MG/ML VIAL IV PRN (08:44)
[2022-09-13 08:49] LABS: Adenovirus F 40/41 PCR Not Detected (NotDetected); Astrovirus PCR Not Detected (NotDetected); Campylobacter PCR Not Detected (NotDetected); Cryptosporidium PCR Not Detected (NotDetected); Cyclospora cayetanensis PCR Not Detected (NotDetected); Entamoeba histolytica PCR Not Detected (NotDetected); Enteroaggregative E.coli(EAEC) Not Detected (NotDetected); Enteropathogenic E.coli (EPEC) Not Detected (NotDetected); Enterotoxigenic E.coli (ETEC) Not Detected (NotDetected); Giardia lamblia PCR Not Detected (NotDetected); Norovirus GI/GII PCR Not Detected (NotDetected); Plesiomonas shigelloides PCR Not Detected (NotDetected); Rotavirus A PCR Not Detected (NotDetected); Salmonella PCR Not Detected (NotDetected); Sapovirus PCR Not Detected (NotDetected); Shiga-like Toxin E.coli (STEC) Not Detected (NotDetected); Shigella/Enteroinvasive E.coli Not Detected (NotDetected); Vibrio cholerae PCR Not Detected (NotDetected); Vibrio species PCR Not Detected (NotDetected); Yersinia enterocolitica PCR Not Detected (NotDetected)
[2022-09-13 09:20] LABS: Appearance Urine Clear (Clear); Bilirubin Urine Negative (Negative); Blood Urine Negative (Negative); Color Urine Dark Yellow; Glucose Urine UA Negative (Negative); Ketones Urine Trace (Negative); Leukocyte Esterase Urine Negative (Negative); Nitrite Urine Negative (Negative); Protein Urine Negative (Negative); Specific Gravity Urine 1.017 (1.000-1.030); Urobilinogen Urine Negative (Negative)
[2022-09-13] MEDS: PANTOprazole 40 MG TAB PO SCH (09:24)
[2022-09-13] MEDS: HEPARIN SOD 5,000 UNIT/0.5 ML VIAL SQ SCH ×2 (09:24→21:03)
[2022-09-13] MEDS: D5NSS + 20MEQ KCL 20 MEQ/1,000 ML BAG IV SCH ×2 (09:24→19:55)
[2022-09-13 10:37] LABS: Amphetamines+Metham, Urine Neg (Neg); Barbiturates, Urine Neg (Neg); Benzodiazepine, Urine Pos (Neg); Cocaine, Urine Neg (Neg); MDMA (Ecstacy), Urine Neg (Neg); Methadone, Urine Neg (Neg); Opiate, Urine Neg (Neg); Phencyclidine, Urine Neg (Neg)
--- NOTE | 2022-09-13 11:56 | Psychiatric Consultation ---
Date of Consultation September 13, 2022 Impression / Recommendations Impression 62 yo male with ETOHic cirrhosis presents with depressive symptoms both prior to and after new sobriety. He has had intermittent suicidal thoughts but no hx of attempts and denies active now or any intent to harm self. His was reportedly not aware he had a gun to this point. He has only 1 prior trial of Lexapro. (1) Depression with anxiety: (2) Hyponatremia: (3) Alcoholic cirrhosis: Plan 1. Dr. Staples updated as patient is not deemed acutely risk to self in the hospital so 1 on1 can be d/c. Liaison nurse confirms to secure weapon this afternoon. 2. he is currently focussed on return home, would benefit from outpatient D&A counseling. Liaison to discuss with patient. 3. thyroid panel if none in past 6 months. 4. currently he is quite hyponatremic so may need to wait to start any antidepressant, would avoid SSRI. Remeron likely best option 15 mg po qhs when hospitalist deems able as typically helps sleep and appetite. 5. please notify service prior to any discharge as would recommend a formal safety plan and aftercare not yet complete. Protective Factors Assessment Employed: No Psych History Identifying Data 62 yo male from [place]. hx of cirrhosis. Admit medically for diarrhea. Consult by hospitalist service for suicidal statements. Chief Complaint "I was upset, tired, all this GI stuff, I'm not going to hurt myself here". History of Present Illness The patient was drinking a 1/5th of hard liquor daily until 32 days prior to admission. He stopped drinking due to his health. He has a history of loss, specifically his previous dying in his arms 8 years a go. Quit his job 3 yeras ago and "still alot of frustrations." He is having difficulty sleeping due to frequent diarrhea and when he's up "5-6 times a night, who wants to live like that?" but again denies intent to harm himself. To liaison early this am stated: Confirmation of thoughts of wanting to go into the li and use his pistol to kill himself. He said he would actually have trouble following through with his plan. States that he has reasons to live, although he did not specify. Denies any SIB currently or in the past. States he has not been to a psychiatrist or therapist previously. States he has never been to an inpatient facility for psychiatric issues. Is willing for psychiatric treatment. Denies any trauma. States that his is supportive. Has been on Lexapro, but has stopped taking it. He states that he cannot recall why he was prescribed it nor has it had any effect on him. Today the patient states he doesn't think that Lexapro was helpful though likely drinking at the time of the trial. He would not want to restart it. His main concern is sleep. He is focussed on desire to return home. Past Psychiatric History Current Psychiatric Diagnosis: Depression Allergies Allergy/AdvReac Type Severity Reaction Status Date / Time amlodipine [From [facility]] AdvReac Unknown PT UNAWARE Verified 09/13/22 00:33 OF THIS ALLERGY OR REACTION??? Home Medications Medication Instructions Recorded Confirmed Type furosemide 20 mg tablet 20 mg PO DAILY #30 tabs 08/19/22 09/13/22 Rx lactulose 20 gram/30 mL oral 20 g (30 mL) PO TID #1,200 mL 08/19/22 09/13/22 Rx solution pantoprazole 40 mg tablet,delayed 40 mg PO DAILY #30 tabs 08/19/22 09/13/22 Rx release potassium chloride 20 mEq oral 20 meq PO DAILY #30 ea 08/19/22 09/13/22 Rx packet (Klor-Con) spironolactone 25 mg tablet 50 mg PO QAM 30 days #60 tabs 08/19/22 09/13/22 Rx Personal History Living Arrangements: Home Beliefs That Will Affect Care: None Patient History Medical History Abdominal ascites Accelerated junctional rhythm Alcohol abuse Alcoholic cirrhosis of liver Anemia Asthmatic bronchitis Blurred vision BPH (benign prostatic hyperplasia) Depression with anxiety Dermatitis Elevated LFTs Elevated liver enzymes Erectile dysfunction ETOH abuse Hyperlipidemia Hypertension Impaired fasting glucose Melena Noncompliance with medication regimen Portal hypertension Surgical History H/O esophagogastroduodenoscopy History of tonsillectomy and adenoidectomy Family History Father Heart disease Cardiomegaly Pacemaker Cardiac rhythm disorder or disturbance or change Mother Heart disease Pacemaker Social History (Updated 09/13/22 @ 12:05 by Jenny Massey MD) Smoking Status: Never smoker Hx Alcohol Use: No Hx Substance Use: Yes Substance Use Type Other:: used last evening Preferred Language: [place] Citizen Communication Ability: Effective 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[employer] 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: No Beliefs That Will Affect Care: None marital status: marital status details: hx of Current Living Situation: Spouse current occupational status: previously employed 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 [employer] Other Information That Helps Us Care for You: No Feels Safe at Home: Yes Safety Concerns: Feels Safe At This Time Childhood Exposure to Second-Hand Smoke: No Assistive Devices: None Physical Exam Psychiatric: Orientation: alert and oriented x 3 Apperance: appropriately dressed and appropriately groomed Eye Contact: good eye contact Motor Behavior: no abnormal motor movements Speech: normal rate/rhythm/volume of speech Affect: + depressed affect Mood: + depressed mood Thought Process: goal directed thought process Thought Content: reality based without delusions Suicidal Thoughts: denies suicidal thoughts Homicidal Thoughts: denies homicidal thoughts Hallucinations: no auditory hallucinations and no visual hallucinations Cognition: attention grossly intact and language grossly intact Estimated Intelligence: consistent with education level Insight: + limited insight Judgement: + limited judgement Vital Signs (Past 24 Hours): Last Vital Signs Temp 36.5 C 09/13/22 07:21 Pulse 92 H 09/13/22 07:21 Resp 18 09/13/22 07:21 BP 114/76 09/13/22 07:21 Pulse Ox 100 09/13/22 07:21 O2 Del Method 09/13/22 07:21 Review of Systems All systems reviewed & are unremarkable except as noted in HPI & below Results & Data (PSY) Laboratory Results 09/13/22 09/13/22 09/13/22 Range/Units 09:04 09:04 09:04 WBC (4.8-10.8) K/ul RBC (4.63-6.08) M/uL Hgb (14.0-18.0) g/dl Hct (40.1-51.0) % MCV (80.0-100.0) fL MCH (25.0-34.0) pg MCHC (32.0-36.0) g/dL RDW Std Deviation (36.4-46.3) fL RDW Coeff of Elizabeth (11.5-14.5) % Plt Count (130-400) K/uL MPV (9.4-12.4) fL Immature Gran % (Auto) % Neut % (Auto) % Lymph % (Auto) % [place] % (Auto) % Eos % (Auto) % Baso % (Auto) % Neut # (Auto) (1.4-6.5) K/uL Lymph # (Auto) (1.2-3.4) K/uL [place] # (Auto) (0.24-0.82) K/uL Eos # (Auto) (0-0.50) K/uL Baso # (Auto) (0-0.2) K/uL Immature Gran # (Auto) (0.00-0.02) K/uL PT (9.0-12.0) Seconds INR (0.9-1.1) Sodium (136-145) mmol/L Potassium (3.5-5.1) mmol/L Chloride (98-107) mmol/L Carbon Dioxide (21-32) mmol/L Anion Gap (3-11) BUN (6-23) mg/dl Creatinine (0.6-1.4) mg/dl Est Cr Clr Drug Dosing ml/min Est GFR ( Amer) ml/min Est GFR (Non-Af Amer) ml/min BUN/Creatinine Ratio (10-20) Glucose (70-99(Fasting)) mg/dl Osmolality (280-300) mOsm/kg Calcium (8.5-10.1) mg/dl Phosphorus (2.5-4.9) mg/dl Magnesium (1.7-2.4) mg/dl Total Bilirubin (0.2-1.0) mg/dl AST (13-39) U/L ALT (7-52) U/L Alkaline Phosphatase (34-104) U/L Total Creatine Kinase (30-223) U/L Total Protein (6.0-8.3) gm/dl Albumin (3.4-5.0) gm/dl Globulin (2.5-4.0) gm/dl Albumin/Globulin Ratio (0.9-2) Lipase (11-82) U/L Urine Color Dark Yellow Urine Appearance Clear (Clear) Urine pH 6.0 (4.5-7.5) Ur Specific [place] 1.017 (1.000-1.030) Urine Protein Negative (Negative) Urine Glucose (UA) Negative (Negative) Urine Ketones Trace H (Negative) Urine Blood Negative (Negative) Urine Nitrite Negative (Negative) Urine Bilirubin Negative (Negative) Urine Urobilinogen Negative (Negative) Ur Leukocyte Esterase Negative (Negative) Urine Osmolality Ur Random Creatinine 156.4 mg/dl Ur Random Sodium mmol/L Stl C. cayetanensis PCR (NotDetected) Stool Rotavirus A PCR (NotDetected) Stl Adenov F 40/41 PCR (NotDetected) Stool Astrovirus (PCR) (NotDetected) Stool Campylobacter PCR (NotDetected) Stl C. diff Tox B Gene (Neg) Stool Cryptosporidium PCR (NotDetected) Stl E.coli Shiga Tox PCR (NotDetected) Stl Enterotoxigenic E PCR (NotDetected) Stool EPEC (PCR) (NotDetected) Stool EAEC (PCR) (NotDetected) Stl E. histolytica PCR (NotDetected) Stool Giardia Lamblia PCR (NotDetected) Stool Salmonella PCR (NotDetected) Stool Sapovirus (PCR) (NotDetected) Stl P. shigelloides PCR (NotDetected) Stl Shigella/EIEC PCR (NotDetected) St Y.enterocolitica PCR (NotDetected) Stool Vibrio (PCR) (NotDetected) Stl Vibrio cholerae PCR (NotDetected) Stl Norovirus GI/GII PCR (NotDetected) Urine Opiates Screen (Neg) Ur Methadone, Qual (Neg) Urine Barbiturates (Neg) Ur Phencyclidine (PCP) (Neg) U Amphetamin/Meth Scrn (Neg) MDMA (Ecstasy) Screen (Neg) U OH-Alprazolam Confrm Pending U Benzodiazepines Scrn (Neg) 7-Amino Clonazepam Pending Ur Nordiazepam Confirm Pending U OH-ethylflurazepam Pending U Lorazepam Cnf GC/MS Pending U Oxazepam Confm GC/MS Pending Ur Temazepam Confirm Pending U OH-Triazolam Confirm Pending U OH-Midazolam Confirm Pending Ur Cocaine Metabolite (Neg) U Marijuana (THC) Screen (Neg) U Marijuana THC Carboxy Pending Drug Screen Comment Pending Ethyl Alcohol mg/dL (<10.0) mg/dl Adenovirus (PCR) (NotDetected) B. pertussis DNA (PCR) (NotDetected) B.parapertussis DNA PCR (NotDetected) C. pneumoniae DNA (PCR) (NotDetected) Coronavirus OC43 (PCR) (NotDetected) Coronavirus HKU1 (PCR) (NotDetected) Coronavirus 229E (PCR) (NotDetected) SARS-CoV-2 (PCR) (NotDetected) Coronavirus NL63 (PCR) (NotDetected) Human Metapneumovir PCR (NotDetected) Influenza Type A (PCR) (NotDetected) Influenza Type B (PCR) (NotDetected) M. pneumoniae (PCR) (NotDetected) Parainfluenza 1 (PCR) (NotDetected) Parainfluenza 2 (PCR) (NotDetected) Parainfluenza 3 (PCR) (NotDetected) Parainfluenza 4 (PCR) (NotDetected) RSV (PCR) (NotDetected) Entero/Rhino (PCR) (NotDetected) 09/13/22 09/13/22 09/13/22 Range/Units 09:04 09:04 09:04 WBC (4.8-10.8) K/ul RBC (4.63-6.08) M/uL Hgb (14.0-18.0) g/dl Hct (40.1-51.0) % MCV (80.0-100.0) fL MCH (25.0-34.0) pg MCHC (32.0-36.0) g/dL RDW Std Deviation (36.4-46.3) fL RDW Coeff of Elizabeth (11.5-14.5) % Plt Count (130-400) K/uL MPV (9.4-12.4) fL Immature Gran % (Auto) % Neut % (Auto) % Lymph % (Auto) % [place] % (Auto) % Eos % (Auto) % Baso % (Auto) % Neut # (Auto) (1.4-6.5) K/uL Lymph # (Auto) (1.2-3.4) K/uL [place] # (Auto) (0.24-0.82) K/uL Eos # (Auto) (0-0.50) K/uL Baso # (Auto) (0-0.2) K/uL Immature Gran # (Auto) (0.00-0.02) K/uL PT (9.0-12.0) Seconds INR (0.9-1.1) Sodium (136-145) mmol/L Potassium (3.5-5.1) mmol/L Chloride (98-107) mmol/L Carbon Dioxide (21-32) mmol/L Anion Gap (3-11) BUN (6-23) mg/dl Creatinine (0.6-1.4) mg/dl Est Cr Clr Drug Dosing ml/min Est GFR ( Amer) ml/min Est GFR (Non-Af Amer) ml/min BUN/Creatinine Ratio (10-20) Glucose (70-99(Fasting)) mg/dl Osmolality (280-300) mOsm/kg Calcium (8.5-10.1) mg/dl Phosphorus (2.5-4.9) mg/dl Magnesium (1.7-2.4) mg/dl Total Bilirubin (0.2-1.0) mg/dl AST (13-39) U/L ALT (7-52) U/L Alkaline Phosphatase (34-104) U/L Total Creatine Kinase (30-223) U/L Total Protein (6.0-8.3) gm/dl Albumin (3.4-5.0) gm/dl Globulin (2.5-4.0) gm/dl Albumin/Globulin Ratio (0.9-2) Lipase (11-82) U/L Urine Color Urine Appearance (Clear) Urine pH (4.5-7.5) Ur Specific [place] (1.000-1.030) Urine Protein (Negative) Urine Glucose (UA) (Negative) Urine Ketones (Negative) Urine Blood (Negative) Urine Nitrite (Negative) Urine Bilirubin (Negative) Urine Urobilinogen (Negative) Ur Leukocyte Esterase (Negative) Urine Osmolality Pending Ur Random Creatinine mg/dl Ur Random Sodium 15 mmol/L Stl C. cayetanensis PCR (NotDetected) Stool Rotavirus A PCR (NotDetected) Stl Adenov F 40/41 PCR (NotDetected) Stool Astrovirus (PCR) (NotDetected) Stool Campylobacter PCR (NotDetected) Stl C. diff Tox B Gene (Neg) Stool Cryptosporidium PCR (NotDetected) Stl E.coli Shiga Tox PCR (NotDetected) Stl Enterotoxigenic E PCR (NotDetected) Stool EPEC (PCR) (NotDetected) Stool EAEC (PCR) (NotDetected) Stl E. histolytica PCR (NotDetected) Stool Giardia Lamblia PCR (NotDetected) Stool Salmonella PCR (NotDetected) Stool Sapovirus (PCR) (NotDetected) Stl P. shigelloides PCR (NotDetected) Stl Shigella/EIEC PCR (NotDetected) St Y.enterocolitica PCR (NotDetected) Stool Vibrio (PCR) (NotDetected) Stl Vibrio cholerae PCR (NotDetected) Stl Norovirus GI/GII PCR (NotDetected) Urine Opiates Screen Neg (Neg) Ur Methadone, Qual Neg (Neg) Urine Barbiturates Neg (Neg) Ur Phencyclidine (PCP) Neg (Neg) U Amphetamin/Meth Scrn Neg (Neg) MDMA (Ecstasy) Screen Neg (Neg) U OH-Alprazolam Confrm U Benzodiazepines Scrn Pos H (Neg) 7-Amino Clonazepam Ur Nordiazepam Confirm U OH-ethylflurazepam U Lorazepam Cnf GC/MS U Oxazepam Confm GC/MS Ur Temazepam Confirm U OH-Triazolam Confirm U OH-Midazolam Confirm Ur Cocaine Metabolite Neg (Neg) U Marijuana (THC) Screen Pos H (Neg) U Marijuana THC Carboxy Drug Screen Comment Ethyl Alcohol mg/dL (<10.0) mg/dl Adenovirus (PCR) (NotDetected) B. pertussis DNA (PCR) (NotDetected) B.parapertussis DNA PCR (NotDetected) C. pneumoniae DNA (PCR) (NotDetected) Coronavirus OC43 (PCR) (NotDetected) Coronavirus HKU1 (PCR) (NotDetected) Coronavirus 229E (PCR) (NotDetected) SARS-CoV-2 (PCR) (NotDetected) Coronavirus NL63 (PCR) (NotDetected) Human Metapneumovir PCR (NotDetected) Influenza Type A (PCR) (NotDetected) Influenza Type B (PCR) (NotDetected) M. pneumoniae (PCR) (NotDetected) Parainfluenza 1 (PCR) (NotDetected) Parainfluenza 2 (PCR) (NotDetected) Parainfluenza 3 (PCR) (NotDetected) Parainfluenza 4 (PCR) (NotDetected) RSV (PCR) (NotDetected) Entero/Rhino (PCR) (NotDetected) 09/13/22 09/13/22 09/13/22 Range/Units 07:00 07:00 06:44 WBC (4.8-10.8) K/ul RBC (4.63-6.08) M/uL Hgb (14.0-18.0) g/dl Hct (40.1-51.0) % MCV (80.0-100.0) fL MCH (25.0-34.0) pg MCHC (32.0-36.0) g/dL RDW Std Deviation (36.4-46.3) fL RDW Coeff of Elizabeth (11.5-14.5) % Plt Count (130-400) K/uL MPV (9.4-12.4) fL Immature Gran % (Auto) % Neut % (Auto) % Lymph % (Auto) % [place] % (Auto) % Eos % (Auto) % Baso % (Auto) % Neut # (Auto) (1.4-6.5) K/uL Lymph # (Auto) (1.2-3.4) K/uL [place] # (Auto) (0.24-0.82) K/uL Eos # (Auto) (0-0.50) K/uL Baso # (Auto) (0-0.2) K/uL Immature Gran # (Auto) (0.00-0.02) K/uL PT (9.0-12.0) Seconds INR (0.9-1.1) Sodium (136-145) mmol/L Potassium (3.5-5.1) mmol/L Chloride (98-107) mmol/L Carbon Dioxide (21-32) mmol/L Anion Gap (3-11) BUN (6-23) mg/dl Creatinine (0.6-1.4) mg/dl Est Cr Clr Drug Dosing ml/min Est GFR ( Amer) ml/min Est GFR (Non-Af Amer) ml/min BUN/Creatinine Ratio (10-20) Glucose (70-99(Fasting)) mg/dl Osmolality (280-300) mOsm/kg Calcium (8.5-10.1) mg/dl Phosphorus 3.1 (2.5-4.9) mg/dl Magnesium 1.3 L (1.7-2.4) mg/dl Total Bilirubin (0.2-1.0) mg/dl AST (13-39) U/L ALT (7-52) U/L Alkaline Phosphatase (34-104) U/L Total Creatine Kinase 13 L (30-223) U/L Total Protein (6.0-8.3) gm/dl Albumin (3.4-5.0) gm/dl Globulin (2.5-4.0) gm/dl Albumin/Globulin Ratio (0.9-2) Lipase (11-82) U/L Urine Color Urine Appearance (Clear) Urine pH (4.5-7.5) Ur Specific [place] (1.000-1.030) Urine Protein (Negative) Urine Glucose (UA) (Negative) Urine Ketones (Negative) Urine Blood (Negative) Urine Nitrite (Negative) Urine Bilirubin (Negative) Urine Urobilinogen (Negative) Ur Leukocyte Esterase (Negative) Urine Osmolality Ur Random Creatinine mg/dl Ur Random Sodium mmol/L Stl C. cayetanensis PCR Not Detected (NotDetected) Stool Rotavirus A PCR Not Detected (NotDetected) Stl Adenov F 40/41 PCR Not Detected (NotDetected) Stool Astrovirus (PCR) Not Detected (NotDetected) Stool Campylobacter PCR Not Detected (NotDetected) Stl C. diff Tox B Gene (Neg) Stool Cryptosporidium PCR Not Detected (NotDetected) Stl E.coli Shiga Tox PCR Not Detected (NotDetected) Stl Enterotoxigenic E PCR Not Detected (NotDetected) Stool EPEC (PCR) Not Detected (NotDetected) Stool EAEC (PCR) Not Detected (NotDetected) Stl E. histolytica PCR Not Detected (NotDetected) Stool Giardia Lamblia PCR Not Detected (NotDetected) Stool Salmonella PCR Not Detected (NotDetected) Stool Sapovirus (PCR) Not Detected (NotDetected) Stl P. shigelloides PCR Not Detected (NotDetected) Stl Shigella/EIEC PCR Not Detected (NotDetected) St Y.enterocolitica PCR Not Detected (NotDetected) Stool Vibrio (PCR) Not Detected (NotDetected) Stl Vibrio cholerae PCR Not Detected (NotDetected) Stl Norovirus GI/GII PCR Not Detected (NotDetected) Urine Opiates Screen (Neg) Ur Methadone, Qual (Neg) Urine Barbiturates (Neg) Ur Phencyclidine (PCP) (Neg) U Amphetamin/Meth Scrn (Neg) MDMA (Ecstasy) Screen (Neg) U OH-Alprazolam Confrm U Benzodiazepines Scrn (Neg) 7-Amino Clonazepam Ur Nordiazepam Confirm U OH-ethylflurazepam U Lorazepam Cnf GC/MS U Oxazepam Confm GC/MS Ur Temazepam Confirm U OH-Triazolam Confirm U OH-Midazolam Confirm Ur Cocaine Metabolite (Neg) U Marijuana (THC) Screen (Neg) U Marijuana THC Carboxy Drug Screen Comment Ethyl Alcohol mg/dL (<10.0) mg/dl Adenovirus (PCR) (NotDetected) B. pertussis DNA (PCR) (NotDetected) B.parapertussis DNA PCR (NotDetected) C. pneumoniae DNA (PCR) (NotDetected) Coronavirus OC43 (PCR) (NotDetected) Coronavirus HKU1 (PCR) (NotDetected) Coronavirus 229E (PCR) (NotDetected) SARS-CoV-2 (PCR) (NotDetected) Coronavirus NL63 (PCR) (NotDetected) Human Metapneumovir PCR (NotDetected) Influenza Type A (PCR) (NotDetected) Influenza Type B (PCR) (NotDetected) M. pneumoniae (PCR) (NotDetected) Parainfluenza 1 (PCR) (NotDetected) Parainfluenza 2 (PCR) (NotDetected) Parainfluenza 3 (PCR) (NotDetected) Parainfluenza 4 (PCR) (NotDetected) RSV (PCR) (NotDetected) Entero/Rhino (PCR) (NotDetected) 09/13/22 09/12/22 09/12/22 Range/Units 01:12 23:18 23:18 WBC (4.8-10.8) K/ul RBC (4.63-6.08) M/uL Hgb (14.0-18.0) g/dl Hct (40.1-51.0) % MCV (80.0-100.0) fL MCH (25.0-34.0) pg MCHC (32.0-36.0) g/dL RDW Std Deviation (36.4-46.3) fL RDW Coeff of Elizabeth (11.5-14.5) % Plt Count (130-400) K/uL MPV (9.4-12.4) fL Immature Gran % (Auto) % Neut % (Auto) % Lymph % (Auto) % [place] % (Auto) % Eos % (Auto) % Baso % (Auto) % Neut # (Auto) (1.4-6.5) K/uL Lymph # (Auto) (1.2-3.4) K/uL [place] # (Auto) (0.24-0.82) K/uL Eos # (Auto) (0-0.50) K/uL Baso # (Auto) (0-0.2) K/uL Immature Gran # (Auto) (0.00-0.02) K/uL PT (9.0-12.0) Seconds INR (0.9-1.1) Sodium (136-145) mmol/L Potassium (3.5-5.1) mmol/L Chloride (98-107) mmol/L Carbon Dioxide (21-32) mmol/L Anion Gap (3-11) BUN (6-23) mg/dl Creatinine (0.6-1.4) mg/dl Est Cr Clr Drug Dosing ml/min Est GFR ( Amer) ml/min Est GFR (Non-Af Amer) ml/min BUN/Creatinine Ratio (10-20) Glucose (70-99(Fasting)) mg/dl Osmolality 276 L (280-300) mOsm/kg Calcium (8.5-10.1) mg/dl Phosphorus (2.5-4.9) mg/dl Magnesium (1.7-2.4) mg/dl Total Bilirubin (0.2-1.0) mg/dl AST (13-39) U/L ALT (7-52) U/L Alkaline Phosphatase (34-104) U/L Total Creatine Kinase (30-223) U/L Total Protein (6.0-8.3) gm/dl Albumin (3.4-5.0) gm/dl Globulin (2.5-4.0) gm/dl Albumin/Globulin Ratio (0.9-2) Lipase (11-82) U/L Urine Color Urine Appearance (Clear) Urine pH (4.5-7.5) Ur Specific [place] (1.000-1.030) Urine Protein (Negative) Urine Glucose (UA) (Negative) Urine Ketones (Negative) Urine Blood (Negative) Urine Nitrite (Negative) Urine Bilirubin (Negative) Urine Urobilinogen (Negative) Ur Leukocyte Esterase (Negative) Urine Osmolality Ur Random Creatinine mg/dl Ur Random Sodium mmol/L Stl C. cayetanensis PCR (NotDetected) Stool Rotavirus A PCR (NotDetected) Stl Adenov F 40/41 PCR (NotDetected) Stool Astrovirus (PCR) (NotDetected) Stool Campylobacter PCR (NotDetected) Stl C. diff Tox B Gene (Neg) Stool Cryptosporidium PCR (NotDetected) Stl E.coli Shiga Tox PCR (NotDetected) Stl Enterotoxigenic E PCR (NotDetected) Stool EPEC (PCR) (NotDetected) Stool EAEC (PCR) (NotDetected) Stl E. histolytica PCR (NotDetected) Stool Giardia Lamblia PCR (NotDetected) Stool Salmonella PCR (NotDetected) Stool Sapovirus (PCR) (NotDetected) Stl P. shigelloides PCR (NotDetected) Stl Shigella/EIEC PCR (NotDetected) St Y.enterocolitica PCR (NotDetected) Stool Vibrio (PCR) (NotDetected) Stl Vibrio cholerae PCR (NotDetected) Stl Norovirus GI/GII PCR (NotDetected) Urine Opiates Screen (Neg) Ur Methadone, Qual (Neg) Urine Barbiturates (Neg) Ur Phencyclidine (PCP) (Neg) U Amphetamin/Meth Scrn (Neg) MDMA (Ecstasy) Screen (Neg) U OH-Alprazolam Confrm U Benzodiazepines Scrn (Neg) 7-Amino Clonazepam Ur Nordiazepam Confirm U OH-ethylflurazepam U Lorazepam Cnf GC/MS U Oxazepam Confm GC/MS Ur Temazepam Confirm U OH-Triazolam Confirm U OH-Midazolam Confirm Ur Cocaine Metabolite (Neg) U Marijuana (THC) Screen (Neg) U Marijuana THC Carboxy Drug Screen Comment Ethyl Alcohol mg/dL < 10.0 (<10.0) mg/dl Adenovirus (PCR) Not Detected (NotDetected) B. pertussis DNA (PCR) Not Detected (NotDetected) B.parapertussis DNA PCR Not Detected (NotDetected) C. pneumoniae DNA (PCR) Not Detected (NotDetected) Coronavirus OC43 (PCR) Not Detected (NotDetected) Coronavirus HKU1 (PCR) Not Detected (NotDetected) Coronavirus 229E (PCR) Not Detected (NotDetected) SARS-CoV-2 (PCR) Not Detected (NotDetected) Coronavirus NL63 (PCR) Not Detected (NotDetected) Human Metapneumovir PCR Not Detected (NotDetected) Influenza Type A (PCR) Not Detected (NotDetected) Influenza Type B (PCR) Not Detected (NotDetected) M. pneumoniae (PCR) Not Detected (NotDetected) Parainfluenza 1 (PCR) Not Detected (NotDetected) Parainfluenza 2 (PCR) Not Detected (NotDetected) Parainfluenza 3 (PCR) Not Detected (NotDetected) Parainfluenza 4 (PCR) Not Detected (NotDetected) RSV (PCR) Not Detected (NotDetected) Entero/Rhino (PCR) Not Detected (NotDetected) 09/12/22 09/12/22 09/12/22 Range/Units 23:18 19:50 19:50 WBC 6.52 (4.8-10.8) K/ul RBC 3.35 L (4.63-6.08) M/uL Hgb 11.2 L (14.0-18.0) g/dl Hct 31.4 L (40.1-51.0) % MCV 93.7 (80.0-100.0) fL MCH 33.4 (25.0-34.0) pg MCHC 35.7 (32.0-36.0) g/dL RDW Std Deviation 50.3 H (36.4-46.3) fL RDW Coeff of Elizabeth 14.5 (11.5-14.5) % Plt Count 230 (130-400) K/uL MPV 9.9 (9.4-12.4) fL Immature Gran % (Auto) 0.3 % Neut % (Auto) 56.8 % Lymph % (Auto) 29.0 % [place] % (Auto) 11.7 % Eos % (Auto) 1.4 % Baso % (Auto) 0.8 % Neut # (Auto) 3.71 (1.4-6.5) K/uL Lymph # (Auto) 1.89 (1.2-3.4) K/uL [place] # (Auto) 0.76 (0.24-0.82) K/uL Eos # (Auto) 0.09 (0-0.50) K/uL Baso # (Auto) 0.05 (0-0.2) K/uL Immature Gran # (Auto) 0.02 (0.00-0.02) K/uL PT 14.0 H (9.0-12.0) Seconds INR 1.3 H (0.9-1.1) Sodium 128 L (136-145) mmol/L Potassium 3.9 (3.5-5.1) mmol/L Chloride 100 (98-107) mmol/L Carbon Dioxide 19 L (21-32) mmol/L Anion Gap 9 (3-11) BUN 18 (6-23) mg/dl Creatinine 1.58 H (0.6-1.4) mg/dl Est Cr Clr Drug Dosing 41.6 ml/min Est GFR ( Amer) 53.2 ml/min Est GFR (Non-Af Amer) 45.9 ml/min BUN/Creatinine Ratio 11.4 (10-20) Glucose 113 H (70-99(Fasting)) mg/dl Osmolality (280-300) mOsm/kg Calcium 8.6 (8.5-10.1) mg/dl Phosphorus (2.5-4.9) mg/dl Magnesium (1.7-2.4) mg/dl Total Bilirubin 2.5 H (0.2-1.0) mg/dl AST 37 (13-39) U/L ALT 16 (7-52) U/L Alkaline Phosphatase 93 (34-104) U/L Total Creatine Kinase (30-223) U/L Total Protein 7.1 (6.0-8.3) gm/dl Albumin 2.8 L (3.4-5.0) gm/dl Globulin 4.3 H (2.5-4.0) gm/dl Albumin/Globulin Ratio 0.7 L (0.9-2) Lipase 31 (11-82) U/L Urine Color Urine Appearance (Clear) Urine pH (4.5-7.5) Ur Specific [place] (1.000-1.030) Urine Protein (Negative) Urine Glucose (UA) (Negative) Urine Ketones (Negative) Urine Blood (Negative) Urine Nitrite (Negative) Urine Bilirubin (Negative) Urine Urobilinogen (Negative) Ur Leukocyte Esterase (Negative) Urine Osmolality Ur Random Creatinine mg/dl Ur Random Sodium mmol/L Stl C. cayetanensis PCR (NotDetected) Stool Rotavirus A PCR (NotDetected) Stl Adenov F 40/41 PCR (NotDetected) Stool Astrovirus (PCR) (NotDetected) Stool Campylobacter PCR (NotDetected) Stl C. diff Tox B Gene (Neg) Stool Cryptosporidium PCR (NotDetected) Stl E.coli Shiga Tox PCR (NotDetected) Stl Enterotoxigenic E PCR (NotDetected) Stool EPEC (PCR) (NotDetected) Stool EAEC (PCR) (NotDetected) Stl E. histolytica PCR (NotDetected) Stool Giardia Lamblia PCR (NotDetected) Stool Salmonella PCR (NotDetected) Stool Sapovirus (PCR) (NotDetected) Stl P. shigelloides PCR (NotDetected) Stl Shigella/EIEC PCR (NotDetected) St Y.enterocolitica PCR (NotDetected) Stool Vibrio (PCR) (NotDetected) Stl Vibrio cholerae PCR (NotDetected) Stl Norovirus GI/GII PCR (NotDetected) Urine Opiates Screen (Neg) Ur Methadone, Qual (Neg) Urine Barbiturates (Neg) Ur Phencyclidine (PCP) (Neg) U Amphetamin/Meth Scrn (Neg) MDMA (Ecstasy) Screen (Neg) U OH-Alprazolam Confrm U Benzodiazepines Scrn (Neg) 7-Amino Clonazepam Ur Nordiazepam Confirm U OH-ethylflurazepam U Lorazepam Cnf GC/MS U Oxazepam Confm GC/MS Ur Temazepam Confirm U OH-Triazolam Confirm U OH-Midazolam Confirm Ur Cocaine Metabolite (Neg) U Marijuana (THC) Screen (Neg) U Marijuana THC Carboxy Drug Screen Comment Ethyl Alcohol mg/dL (<10.0) mg/dl Adenovirus (PCR) (NotDetected) B. pertussis DNA (PCR) (NotDetected) B.parapertussis DNA PCR (NotDetected) C. pneumoniae DNA (PCR) (NotDetected) Coronavirus OC43 (PCR) (NotDetected) Coronavirus HKU1 (PCR) (NotDetected) Coronavirus 229E (PCR) (NotDetected) SARS-CoV-2 (PCR) (NotDetected) Coronavirus NL63 (PCR) (NotDetected) Human Metapneumovir PCR (NotDetected) Influenza Type A (PCR) (NotDetected) Influenza Type B (PCR) (NotDetected) M. pneumoniae (PCR) (NotDetected) Parainfluenza 1 (PCR) (NotDetected) Parainfluenza 2 (PCR) (NotDetected) Parainfluenza 3 (PCR) (NotDetected) Parainfluenza 4 (PCR) (NotDetected) RSV (PCR) (NotDetected) Entero/Rhino (PCR) (NotDetected) Medications Administered Heparin Sodium (Porcine) (Heparin Sod 5,000 Unit/0.5 Ml Vial) 5,000 units SQ Q12 JUSTINO Stop: 10/13/22 08:59 Last Admin: 09/13/22 09:24 Dose: Not Given Documented By: AV Potassium Chloride/Dextrose/Sod Cl (D5nss + 20meq Kcl) 20 meq in 1,000 mls @ 100 mls/hr IV .Q10H JUSTINO; Protocol Stop: 10/13/22 08:44 Last Infusion: 09/13/22 10:09 Dose: 100 mls/hr Documented By: Admin: 09/13/22 09:24 Dose: 10 mls/hr Documented By: AV Ketorolac Tromethamine (Ketorolac Tromethamine 15 Mg/Ml Vial) 15 mg IV Q6H PRN PRN Reason: Pain Stop: 09/18/22 08:43 Last Admin: 09/13/22 09:24 Dose: 15 mg Documented By: YASSINE Pantoprazole Sodium (Pantoprazole 40 Mg Tab) 40 mg PO DAILY JUSTINO Stop: 10/13/22 08:59 Last Admin: 09/13/22 09:24 Dose: 40 mg Documented By: YASSINE Coding Level of Care Code 84876 [facility] Intl Hosp Care Lvl 2 Diagnoses Depression with anxiety F41.8 Hyponatremia E87.1 Alcoholic cirrhosis K70.30
--- NOTE | 2022-09-13 14:35 | Electrocardiogram Report ---
Test Reason : Blood Pressure : / mmHG Vent. Rate : 114 BPM Atrial Rate : 114 BPM P-R Int : 118 ms QRS Dur : 072 ms QT Int : 356 ms P-R-T Axes : -02 -16 024 degrees QTc Int : 490 ms Poor data quality, interpretation may be adversely affected Sinus tachycardia Possible Anterolateral infarct (cited on or before 10-AUG-2022) Abnormal ECG When compared with ECG of 10-AUG-2022 15:46, No significant change Confirmed by Lorne Tomas ([id number]) on 09/13/2022 2:34:57 PM Referred By: REFERRED SELF Confirmed By:Lorne Tomas
--- NOTE | 2022-09-13 14:54 | Gastrointestinal Consultation ---
Date of Consultation September 13, 2022 Assessment & Plan (1) Diarrhea: Stool Biofire negative Consider colonoscopy as an outpatient with random colon biopsies (2) Ascites: Furosemide and Spironolactone on hold due to SALIMA Recommend resuming these when SALIMA resolves (3) Alcoholic cirrhosis: Continue to abstain from all alcohol as it is a known liver toxin He is not interested in inpatient or outpatient rehab at this time [facility] Recommend patient followup in our office as outpatient for further workup regarding Cirrhosis Avoid all NSAIDS. May use Tylenol up to 2 g by mouth daily Will need RUQ US and AFP every 6 months for HCC surveillance. History of Present Illness Reason for Consultation: Alcohol induced cirrhosis, Diarrhea Attending Physician: Roger Staples MD History of Present Illness Suresh Pa is a 62 yo CM with a PMHx significant for Alcohol induced cirrhosis and ascites, who presented to the ER last night with complaints of lower mid-abdominal pain and diarrhea. He complained of 5-6 BM's per day and eating made his symptoms worse. Upon arrival to the ER, he was noted to be clinically dehydrated and did have an increase in his Cr to 1.58. This is an increase from baseline, consistent with an SAILMA. His stool studies with a stool Biofire were negative. During his evaluation in the ER, he did express suicidal ideation, and he was subsequently admitted with a 1:1 sitter. At the time I saw the patient, he states that he has not had any alcohol in 32 days. He admits to drinking excessively for over 20 years. He states that he has been compliant with his meds at home including Furosemide and Aldactone. He has undergone 2 paracenteses in the past. He denies any jaundice, acholic stools, dark urine, pruritus, jaundice, fever, chills, nausea, vomiting, hematemesis, melena, or hematochezia. He states that he has no plans to hurt himself, and inquires about leaving to go be at home, "with the dogs on the couch." He has no further complaints. Allergies Allergy/AdvReac Type Severity Reaction Status Date / Time amlodipine [From Norvasc] AdvReac Unknown PT UNAWARE Verified 09/13/22 00:33 OF THIS ALLERGY OR REACTION??? Home Medications Medication Instructions Recorded Confirmed Type furosemide 20 mg tablet 20 mg PO DAILY #30 tabs 08/19/22 09/13/22 Rx lactulose 20 gram/30 mL oral 20 g (30 mL) PO TID #1,200 mL 08/19/22 09/13/22 Rx solution pantoprazole 40 mg tablet,delayed 40 mg PO DAILY #30 tabs 08/19/22 09/13/22 Rx release potassium chloride 20 mEq oral 20 meq PO DAILY #30 ea 08/19/22 09/13/22 Rx packet (Klor-Con) spironolactone 25 mg tablet 50 mg PO QAM 30 days #60 tabs 08/19/22 09/13/22 Rx Patient History Medical History Abdominal ascites Accelerated junctional rhythm Alcohol abuse Alcoholic cirrhosis of liver Anemia Asthmatic bronchitis Blurred vision BPH (benign prostatic hyperplasia) Depression with anxiety Dermatitis Elevated LFTs Elevated liver enzymes Erectile dysfunction ETOH abuse Hyperlipidemia Hypertension Impaired fasting glucose Melena Noncompliance with medication regimen Portal hypertension Surgical History H/O esophagogastroduodenoscopy History of tonsillectomy and adenoidectomy Family History Father Heart disease Cardiomegaly Pacemaker Cardiac rhythm disorder or disturbance or change Mother Heart disease Pacemaker Social History Smoking Status: Never smoker Hx Alcohol Use: No Hx Substance Use: Yes Substance Use Type Other:: used last evening Preferred Language: [place] Islander Communication Ability: Effective [employer] In[employer] Required: No Beliefs That Will Affect Care: None marital status: marital status details: hx of Current Living Situation: Spouse current occupational status: previously employed 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 [employer] Other Information That Helps Us Care for You: No Feels Safe at Home: Yes Safety Concerns: Feels Safe At This Time Childhood Exposure to Second-Hand Smoke: No Assistive Devices: None Review of Systems Review of Systems: All systems reviewed & are unremarkable except as noted in Subjective Physical Exam Constitutional: WD/WN, vitals as above Chronic ill-appearing, NAD Eyes: + anicteric sclerae Neck: trachea midline, no thyromegaly Respiratory: normal respiratory effort, lungs clear to auscultation Cardiovascular: RRR, no murmur, no edema Gastrointestinal (Abdomen): normal bowel sounds, soft, nontender, no hepatosplenomegaly Skin: no rashes, warm and dry Psychiatric: A+Ox3, euthymic affect Results & Data ([facility]) Vital Signs (Past 12 Hours) Vital Signs Temp Pulse Pulse Resp BP Pulse Ox O2 Del Method 09/13/22 07:21 36.5 C 92 H 18 114/76 100 Room Air 09/13/22 03:58 37.2 C 101 H 14 121/81 99 09/13/22 03:58 Room Air 09/13/22 03:58 101 H 14 121/81 99 Room Air PG Care Time/CCT Total # of Minutes Spent Total Time Spent with Patient: Total time spent is greater than 50% in coordination of care (as documented) at patient's floor/unit and/or counseling patient: Coding Level of Care Code 21762 Inpt Consult Level 4 Diagnoses Diarrhea R19.7 Ascites R18.8 Alcoholic cirrhosis K70.30
--- NOTE | 2022-09-13 15:08 | Hospitalist Progress Note ---
Date of Service September 13, 2022 Assessment & Plan (1) Renal insufficiency: Plan: Acute on chronic kidney disease. Continue IV fluids. Hold diuretics. No need for intravenous albumin at this time. Monitor intake and output. Serial lab studies. (2) Alcoholic cirrhosis: Plan: Chronic. Currently taking lactulose to prevent elevated ammonia levels. This accounts for his diarrhea although he states he never has had a colonoscopy which can be done as an outpatient. GI Consultation appreciated (3) Diarrhea: Plan: Appears to be chronic and medication related to prevent elevated ammonia levels. No evidence of GI bleeding. Stool cultures and C. difficile toxin assay negative. GI consultation appreciated . Consider outpatient colonoscopy evaluation (4) Depression with suicidal ideation: Plan: Psychiatry consultation appreciated. Currently resolved. One-to-one observation has been discontinued. Continue current medication management. Treat insomnia. Plan Anticipate discharge to home tomorrow, September 14 Admission and Anticipated Discharge Date Admission Date: September 13, 2022 Subjective Alert and oriented. No distress. Case discussed with psychiatry. He has no current suicidal ideation and one-on-one sitting was recommended by psychiatry to be discontinued. Remeron added for insomnia. We will continue IV fluids for now. Diarrhea appears to be chronic and related to lactulose use to prevent elevated ammonia levels related to his underlying cirrhosis. Appreciate GI consultation. Review of Systems Review of Systems: Constitutional-no fever or chills ENT-no blurred vision, no double vision, no epistaxis, no sore throat Respiratory-no cough, no wheezing, no shortness of breath Cardiac-no palpitations, no chest pain, no syncope GI-no nausea, vomiting, melena, hematochezia. Diarrhea appears to be chronic and medication induced to prevent elevated ammonia levels related to the underlying cirrhosis -no urinary retention, no urinary incontinence, no dysuria, no hematuria Musculoskeletal-no joint pain, no muscle tenderness Skin-no bruising, no rashes, no pruritus Neuro-no isolated weakness, no paresthesia, no weakness Psych-no depression, no anxiety. Denies any current suicidal ideation Physical Exam Physical Exam: General-alert and oriented x3, no fevers, no chills HEENT-head atraumatic and normocephalic, pupils equal and reactive to light, ext raocular muscles intact Neck-no lymphadenopathy or thyromegaly, trachea midline Chest-clear to auscultation percussion. No rales wheezing or rhonchi Cardiac-regular rate and rhythm, normal S1 and S2 Abdomen-normal bowel sounds, nontender, no hepatosplenomegaly Extremities-no cyanosis, clubbing, or edema Neuro-cranial nerves II through XII intact, motor and sensory function within normal limits, strength symmetrical , no focal deficits Psych-normal affect, normal mood Results & Data Results & Data ([facility]) Vital Signs (Past 12 Hours) Vital Signs Temp Pulse Pulse Resp BP Pulse Ox O2 Del Method 09/13/22 07:21 36.5 C 92 H 18 114/76 100 Room Air 09/13/22 03:58 37.2 C 101 H 14 121/81 99 09/13/22 03:58 Room Air 09/13/22 03:58 101 H 14 121/81 99 Room Air Laboratory Results 09/12/22 19:50 09/12/22 19:50 PG Care Time/CCT Total # of Minutes Spent Total Time Spent with Patient: Total time spent is greater than 50% in coordination of care (as documented) at patient's floor/unit and/or counseling patient: Coding Level of Care Code 38027 Subseq Hosp Care Lvl 3 Diagnoses Renal insufficiency N28.9 Alcoholic cirrhosis K70.30 Diarrhea R19.7 Depression with suicidal ideation F32.A; R45.851
--- NOTE | 2022-09-13 15:59 | Billing Data ---
Date of Service September 13, 2022 Coding Level of Care Code 00038 Inpt Consult Level 4
[2022-09-13] MEDS ORDERED: MIRTAZAPINE TAB 15 MG TAB PO SCH (21:00)
[2022-09-14] MEDS: D5NSS + 20MEQ KCL 20 MEQ/1,000 ML BAG IV SCH (05:36)
[2022-09-14 06:04] LABS: Basophils # (auto) 0.02 K/uL (0-0.2); Basophils % (auto) 0.5 %; Eosinophils # (auto) 0.22 K/uL (0-0.50); Eosinophils % (auto) 5.8 %; Hematocrit (blood only) 25.1 % (40.1-51.0); Hemoglobin 8.9 g/dl (14.0-18.0); Immature Granulocytes # (auto) 0.01 K/uL (0.00-0.02); Immature Granulocytes % (auto) 0.3 %; Lymphocytes # (auto) 1.59 K/uL (1.2-3.4); Lymphocytes % (auto) 42.1 %; Mean Corpuscular Hemoglobin 33.3 pg (25.0-34.0); Mean Corpuscular Hgb Conc 35.5 g/dL (32.0-36.0); Mean Platelet Volume 9.6 fL (9.4-12.4); Monocytes # (auto) 0.52 K/uL (0.24-0.82); Monocytes % (auto) 13.8 %; Neutrophils # (auto) 1.42 K/uL (1.4-6.5); Neutrophils % (auto) 37.5 %; Platelet Count 139 K/uL (130-400); RDW Coefficient of Variation 14.5 % (11.5-14.5); RDW Standard Deviation 49.9 fL (36.4-46.3); Red Blood Count 2.67 M/uL (4.63-6.08); White Blood Count 3.78 K/ul (4.8-10.8)
[2022-09-14 06:57] LABS: Albumin Level 2.3 gm/dl (3.4-5.0); BUN Creatinine Ratio 11.2 (10-20); Bilirubin Direct 0.6 mg/dl (0-0.2); Bilirubin,Total 1.6 mg/dl (0.2-1.0); Calcium 7.5 mg/dl (8.5-10.1); Creatinine Clr Calc Pharmacy 54.6 ml/min; Est GFR (African American) 70.6 ml/min; Est GFR (Non-African American) 60.9 ml/min; Total Protein 5.4 gm/dl (6.0-8.3)
[2022-09-14] MEDS: HEPARIN SOD 5,000 UNIT/0.5 ML VIAL SQ SCH (08:23)
[2022-09-14] MEDS: PANTOprazole 40 MG TAB PO SCH (08:53)
--- NOTE | 2022-09-14 12:43 | Discharge Summary ---
Date of Service September 14, 2022 Admission HPI Per Admitting Provider Suresh Hilliard is a 62yo male with history of liver cirrhosis secondary to EtOH use, BPH and Depression presenting with diarrhea. Patient reports for the last 3 days he has been unable to tolerate food intake. He has watery diarrhea approximately 5 minutes following intake of solid food. He denies blood or mucus in his stool. Frequent abdominal cramping, does get cramping prior to diarrhea episodes. He reports up to 10 stools daily. He has been able to drink fluids without diarrhea following. Patient denies nausea or vomiting. He denies fever but feels as though he is always cold with chills. He has had a chronic cough and SOB since having Covid- 19 in July. No change in these complaints. He does report decreased UOP. He has been taking his medications to include Lasix and Spironolactone as well as Lactulose TID. Patient was recently diagnosed with liver cirrhosis. He follows with GI - last seen 08/19/22. Patient no longer drinks alcohol and has been sober x 32 days. He has had paracentesis x 2 for abdominal ascites. Patient did admit to feeling suicidal and has a loose plan to shoot himself with his gun. He has a history of depression and was previously on Lexapro which he self-discontinued. He wishes to resume depression after discussion with Psychiatry. Verbally contracted for safety ER Course: NSS x 1L Principal Diagnosis Suicidal ideation, hypomagnesemia, hyponatremia, mild acute kidney injury, insomnia, persistent chronic diarrhea secondary to medications Discharge Exam General-alert and oriented x3, no fevers, no chills HEENT-head atraumatic and normocephalic, pupils equal and reactive to light, extraocular muscles intact Neck-no lymphadenopathy or thyromegaly, trachea midline Chest-clear to auscultation percussion. No rales wheezing or rhonchi Cardiac-regular rate and rhythm, normal S1 and S2 Abdomen-normal bowel sounds, nontender, no hepatosplenomegaly Extremities-no cyanosis, clubbing, or edema Neuro-cranial nerves II through XII intact, motor and sensory function within normal limits, strength symmetrical , no focal deficits Psych-normal affect, normal mood Discharge Data Allergies Allergy/AdvReac Type Severity Reaction Status Date / Time amlodipine [From Norvasc] AdvReac Unknown PT UNAWARE Verified 09/13/22 00:33 OF THIS ALLERGY OR REACTION??? Consultations 09/13/22 00:25 ED Decision to Admit Stat 09/13/22 04:05 Consult Gastroenterology Routine Consult Psychiatry Routine 09/13/22 04:13 Consult Behavioral Health Liaison Routine Hospital Course (1) Renal insufficiency: Acute on chronic kidney disease. Resolved with IV fluids. Hold diuretics while hospitalized. May resume at discharge. No need for intravenous albumin at this time. Monitor intake and output. Serial lab studies. (2) Alcoholic cirrhosis: Chronic. Currently taking lactulose to prevent elevated ammonia levels. This accounts for his diarrhea although he states he never has had a colonoscopy which can be done as an outpatient. GI Consultation appreciated (3) Diarrhea: Appears to be chronic and medication related to prevent elevated ammonia levels. No evidence of GI bleeding. Stool cultures and C. difficile toxin assay negative. GI consultation appreciated . Consider outpatient colonoscopy evaluation (4) Depression with suicidal ideation: Psychiatry consultation appreciated. Currently resolved. One-to-one observation has been discontinued. Continue current medication management. Treat insomnia. Remeron has helped Plan discharge to home today September 14 Total Time Total Time Spent Total Time Spent (In Minutes): 35 minutes Discharge Plan Discharge Items Patient Disposition: Home - Self-Care Reason For Visit: CIRRHOSIS, SI Discharge Diagnosis: Suicidal ideation, hypomagnesemia, hyponatremia, mild acute kidney injury, insomnia Activity: Resume your previous activity Non-emergency contact: Primary Care Provider Call non-emergency contact if: you have any medication questions Follow-up/Referrals: Roge Childers MD [Primary Care Provider] - Diet: Heart Healthy Addtl Attending Provider Instructions: Take Remeron at bedtime as needed for sleep Pending Studies at Discharge: No Stand-Alone Forms: My [employer], Smoking Cessation Medications and DC Order Prescriptions: New mirtazapine 15 mg Tablet 15 mg PO HS PRN (Reason: Sleep) Qty: 14 0RF Continued furosemide 20 mg tablet 20 mg PO DAILY Qty: 30 2RF potassium chloride [Klor-Con] 20 mEq packet 20 meq PO DAILY Qty: 30 2RF pantoprazole 40 mg tablet,delayed release (DR/EC) 40 mg PO DAILY Qty: 30 2RF lactulose 20 gram/30 mL solution 20 g PO TID Qty: 1200 11RF spironolactone 25 mg tablet 50 mg PO QAM 30 Days Qty: 60 11RF Discharge Orders: Discharge Order (Routine); Ordered 09/14/22 Ordered By: Roger Staples Admission Data Admit Date/Time: 09/13/22 01:11 Attending Provider: Roger Staples Admit Provider: Colleen Alatorre Primary Care Provider: Roge Childers Other Providers: Colleen Alatorre ; Paul Malik ; Mariangel Alfonso ; Jenny Massey ; Lili Nava Coding Level of Care Code D/C DAY MANAGEMENT >30 MINS Diagnoses Renal insufficiency N28.9 Alcoholic cirrhosis K70.30 Diarrhea R19.7 Depression with suicidal ideation F32.A; R45.851
[2022-09-16 22:27] LABS: 7-Aminoclonaz, Confirm NEGATIVE ng/mL (<25); Hydro-Alp Ur, GC/MS NEGATIVE ng/mL (<25); Hydroxyethylflurazepam, Conf NEGATIVE ng/mL (<50); Hydroxymidazolam Ur, GC/MS NEGATIVE ng/mL (<50); Hydroxytriazolam NEGATIVE ng/mL (<50); Lorazepam, Ur GC/MS NEGATIVE ng/mL (<50); Marijuana Quant, GCMS Urine 108 ng/mL (<5); Nordiazepam, Confirm NEGATIVE ng/mL (<50); Oxazepam Ur, GC/MS 317 ng/mL (<50); Temazepam, Confirm NEGATIVE ng/mL (<50)
== END 2022-09-14 15:00 | disposition home or self-care (01) | DRG 394 ==
LOC: ED 18:47 → SUATTDRO 09-13 01:11 → 3E 09-13 01:11

== ENCOUNTER 2022-10-24 10:56 | Inpatient (IN) ==
--- NOTE | 2022-10-24 11:18 | ED Triage Note ---
Date of Service October 24, 2022 History of Present Illness This patient was briefly evaluated while in triage. An abbreviated physical exam was performed. This patient is a 62-year-old Male with past medical history of liver disease who presents to the ED for evaluation of confusion and weakness. He was referred here by his GI doctor. Physical Exam VITALS: Vitals are noted on the nurse's note and reviewed by myself. GENERAL: This is a 62-year-old male, in no acute distress, well-developed well- nourished. SKIN: The skin was without rashes. EYES: Pupils equal round and reactive to light and accommodation. HEART: Regular rate and rhythm without murmurs gallops or rubs. LUNGS: Clear to auscultation bilaterally without wheezes, rales or rhonchi. ABDOMEN: Positive bowel sounds x 4. Tenderness in the epigastric region and right upper quadrant. NEURO: Patient was alert and oriented to person place and time. Initial orders for labs and / or imaging were placed and patient was placed in the waiting area until a bed is available. Please see further documentation for the full ED course. MDM / Impression Impression Impression: SALIMA (acute kidney injury), Hyponatremia, Hallucinations, History of cirrhosis of liver
--- NOTE | 2022-10-24 11:56 | XRay Report ---
XR chest 1V portable CLINICAL HISTORY: weakness TECHNIQUE: Single frontal radiograph of the chest was obtained. Comparison: Comparison is made to chest radiograph 08/10/2022 FINDINGS: No lines and tubes are seen. Calcified aortic knob is seen. Lungs are underinflated but clear. No kody dence of pleural effusion or pneumothorax. IMPRESSION: No acute chest disease. ACT 112: Negative or not required by law. Electronically signed by: Reymundo Diehl M.D. 10/24/2022 11:55 AM
--- NOTE | 2022-10-24 12:44 | CT Scan Report ---
CT SCAN OF THE BRAIN WITHOUT IV CONTRAST CLINICAL HISTORY: Change in mental status. COMPARISON STUDY: No priors. TECHNIQUE: Unenhanced axial CT scan of the brain is performed from the vertex to the skull base. A do se lowering technique was utilized adhering to the principles of ALARA. CT DOSE: 537.48 mGy.cm FINDINGS: Brain parenchyma: There is age-related involutional change noting mild subcortical and periventricula r microangiopathic disease. There is no hemorrhage, mass effect, or evidence of acute territorial isc hemia by CT criteria. Devine-white matter differentiation is preserved. No extra-axial fluid collection is seen. Ventricles, sulci, cisterns: Prominent secondary to involutional change. Intracranial vasculature: There is atherosclerotic calcification of the cavernous carotid and vertebr al arteries. Calvarium: Unremarkable. Sinuses and mastoids: The visualized paranasal sinuses are clear. The mastoid air cells are well pneu matized. Orbits: The bony orbits are grossly intact. IMPRESSION: There is no hemorrhage, mass effect, or evidence of acute territorial ischemia by CT sharath mae. ACT 112: Negative or not required by law. Electronically signed by: Kareem Yougnblood M.D. 10/24/2022 12:43 PM
--- NOTE | 2022-10-24 13:06 | Emergency Department Note ---
Impression & Plan SALIMA (acute kidney injury), Hyponatremia, Hallucinations, History of cirrhosis of liver ED Provider Note Provider: Rodolfo Mora MD DATE OF SERVICE: 10/24/2022 CHIEF COMPLAINT: Confusion, weakness, hallucinations HISTORY OF PRESENT ILLNESS: Patient is a 62-year-old gentleman history of BPH, hyponatremia, hypertension, and alcohol-related cirrhosis presenting here today with significant other reporting onset over the past week of worsening generalized weakness, confusions, and some loose Nations. No fever or trauma reported. Abdominal swelling has been present and occasionally causing him some discomfort. Denies difficulty breathing. Increased swelling of the lower legs. Not urinating as much or taking in as much fluid as they think they should. Had blood work recently in the outpatient setting that showed worsening kidney function and was to have repeat blood work. Discussed with [facility] [place] gastroenterology but patient declined paracentesis for symptomatic treatment l ast week. Denies significant chest pain or headache. Had 6 bowel movements yesterday. Has been taking home medications including lactulose. PAST MEDICAL HISTORY: As noted above MEDICATIONS: Reviewed home medication SOCIAL HISTORY: Denies smoking, lives at home PHYSICAL EXAM: GENERAL: alert and oriented in no acute distress on stretcher fatigued in appearance Head: normocephalic and atraumatic EYES: No injection, discharge with minimal to no icterus. PERRL, EOMI. NECK: Trachea midline. Supple. ENT: Mucous membranes pink and moist. LUNGS: Airway patent. No retractions. Breath sounds clear with good air entry bilaterally. HEART: Regular rate and rhythm. No chest wall tenderness ABDOMEN: Soft and moderately distended without peritonitis or significant tenderness. SKIN: Acyanotic, warm, dry, without rashes EXTREMITIES: Without swelling or deformity upper extremities with 1-2+ edema of the lower extremities and mild tenderness. NEUROLOGICAL: No facial droop or significantly slurred speech. Little bit fatigued and at times a bit slow to respond. Moving all extremities with equal strength and sensation. EK bpm normal sinus rhythm. No PVC. No acute ST segment elevation with a QTC of 480. CONTINUOUS CARDIAC MONITORING: was ordered and showed a heart rate of 80s-90s bpm in normal sinus rhythm Patient's laboratory studies and imaging reviewed. Differential includes Infection, dehydration, metabolic abnormality, hypo/hyperglycemia, electrolyte disturbance, anemia, hypoxia, cardiac sources, intracerebral event, toxicologic, neurologic, as well as other pathologies. IMPRESSION/MEDICAL DECISION MAKING: Reviewed recent medical record and admission several months ago. Patient and significant other provide history concerning for possible hepatic encephalop athy. Ammonia level sent. Basic blood work including lactate and blood culture were sent. Some abdominal distention as well as some leg swelling. Afebrile here. Lower suspicion for SBP as he is not significantly tender. Outpatient blood work from the end of September noted worsened renal function and some hyponatremia and we will repeat these to see if things are worse. COVID flu test negative. Chest x-ray is unremarkable. CT the head without evidence of acute a cranial abnormality and again at a low suspicion for CVA. No significant leukocytosis with stable mild anemia. No thrombocytopenia. INR 1.3. Mild lactate elevation of 2.4. Significantly worsened renal function with creatinine of 2.83. Sodium slightly improved compared to recent outpatient labs at 131. Given some IV hydration. Troponin not elevated. Bilirubin minimally elevated to 2.7. SALIMA today with creatinine of 2.8 from baseline just over 1. Fatigue and weakness likely related to worsened renal function. Ammonia not severely elevated when it finally returns. CT the abdomen pelvis without evidence of obstructive uropathy. Ascites noted. Again lower suspicion for SBP at this point. Discussed with patient and family at bedside recommended further care at the hospital. Given some gentle IV hydration. Would likely benefit from a paracentesis although not necessarily needed emergently. Patient was begrudgingly agreeable to stay. Hospitalist contacted. Patient does not appear severely altered at this time but more just generally fatigued and weak. DIAGNOSIS: SALIMA, hallucinations, history of liver cirrhosis, hyponatremia DISPOSITION: Hospitalist will evaluate Patient was agreeable with this plan. Past Med/Surg History Medical History (Updated 10/24/22 @ 17:01 by Sourav Prince PA-C) Abdominal ascites Accelerated junctional rhythm Alcohol abuse Alcoholic cirrhosis Alcoholic cirrhosis of liver Anemia Ascites Asthmatic bronchitis Blurred vision BPH (benign prostatic hyperplasia) Depression with anxiety Dermatitis Diarrhea Elevated LFTs Elevated liver enzymes Erectile dysfunction ETOH abuse Hyperlipidemia Hypertension Impaired fasting glucose Melena Noncompliance with medication regimen Portal hypertension Surgical History H/O esophagogastroduodenoscopy History of tonsillectomy and adenoidectomy Family History Father Heart disease Cardiomegaly Pacemaker Cardiac rhythm disorder or disturbance or change Mother Heart disease Pacemaker Social History Smoking Status: Never smoker Hx Alcohol Use: No Hx Substance Use: Yes Substance Use Type Other:: used last evening Preferred Language: Hungarian Communication Ability: Effective Slot Floor Person Required: No Beliefs That Will Affect Care: None marital status: marital status details: hx of Current Living Situation: Spouse current occupational status: previously employed 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] AdvReac Unknown PT UNAWARE Verified 10/24/22 15:26 OF THIS ALLERGY OR REACTION??? Home Meds Previous Rx's Medication Instructions Recorded furosemide 20 mg tablet 20 mg PO DAILY #30 tabs 08/19/22 pantoprazole 40 mg tablet,delayed 40 mg PO DAILY #30 tabs 08/19/22 release spironolactone 25 mg tablet 50 mg PO QAM 30 days #60 tabs 09/17/22 potassium chloride 20 mEq 20 meq PO DAILY #30 tabs 09/22/22 tablet,extended release(part/cryst) (Klor-Con M) lactulose 20 gram/30 mL oral 20 g (30 mL) PO TID #8,100 mL 10/08/22 solution mirtazapine 15 mg tablet 15 mg PO HS #90 tabs 10/14/22 Results & Data (ED) Vital Signs Vital Signs - 24 hr 10/24/22 11:03 10/24/22 13:45 10/24/22 13:45 Temperature 37.5 C Temperature Source Temporal Artery Scan Pulse Rate 108 H 90 Pulse Rate [Finger] 93 H Pulse Rhythm [Finger] Pulse Strength [Finger] Respiratory Rate 18 20 20 Respiratory Effort / Characteristics Non-Labored Spontaneous Respiratory Depth Normal Respiratory Pattern Regular Blood Pressure 91/62 L Blood Pressure [Right Arm] 101/66 Blood Pressure Mean 71 Blood Pressure Mean [Right Arm] 77 Blood Pressure Position [Right Arm] Lying Pulse Oximetry 94 95 96 Oxygen Delivery Method Room Air Room Air Sepsis Recent Fever Within 48 Hours No Sepsis New/Unexplained Change in Mental Status Yes Sepsis Action Taken by Nursing Adv Provider Notified Pulse Oximetry Post Tiitration 10/24/22 13:56 10/24/22 15:15 10/24/22 17:00 Temperature Temperature Source Pulse Rate Pulse Rate [Finger] 86 92 H Pulse Rhythm [Finger] Regular Pulse Strength [Finger] Normal Respiratory Rate 18 20 Respiratory Effort / Characteristics Non-Labored Respiratory Depth Normal Respiratory Pattern Regular Blood Pressure Blood Pressure [Right Arm] 97/70 L 97/67 L Blood Pressure Mean Blood Pressure Mean [Right Arm] 79 77 Blood Pressure Position [Right Arm] Pulse Oximetry 100 98 Oxygen Delivery Method Room Air Room Air Room Air Sepsis Recent Fever Within 48 Hours Sepsis New/Unexplained Change in Mental Status Sepsis Action Taken by Nursing Pulse Oximetry Post Tiitration 96 Laboratory Data 10/24/22 13:36 10/24/22 13:36 Lab Results 10/24/22 10/24/22 10/24/22 Range/Units 13:36 13:36 13:36 WBC 8.12 (4.8-10.8) K/ul RBC 3.78 L (4.63-6.08) M/uL Hgb 11.9 L (14.0-18.0) g/dl Hct 32.5 L (40.1-51.0) % MCV 86.0 (80.0-100.0) fL MCH 31.5 (25.0-34.0) pg MCHC 36.6 H (32.0-36.0) g/dL RDW Std Deviation 51.1 H (36.4-46.3) fL RDW Coeff of Elizabeth 16.8 H (11.5-14.5) % Plt Count 239 (130-400) K/uL MPV 10.1 (9.4-12.4) fL Immature Gran % (Auto) 0.6 % Neut % (Auto) 70.1 % Lymph % (Auto) 16.0 % [place] % (Auto) 11.2 % Eos % (Auto) 1.2 % Baso % (Auto) 0.9 % Neut # (Auto) 5.69 (1.4-6.5) K/uL Lymph # (Auto) 1.30 (1.2-3.4) K/uL [place] # (Auto) 0.91 H (0.24-0.82) K/uL Eos # (Auto) 0.10 (0-0.50) K/uL Baso # (Auto) 0.07 (0-0.2) K/uL Immature Gran # (Auto) 0.05 H (0.00-0.02) K/uL PT 13.6 H (9.0-12.0) Seconds INR 1.3 H (0.9-1.1) APTT 33.6 H (21.0-31.0) Seconds PTT Ratio 1.2 Sodium 131 L (136-145) mmol/L Potassium 4.1 (3.5-5.1) mmol/L Chloride 103 (98-107) mmol/L Carbon Dioxide 19 L (21-32) mmol/L Anion Gap 9 (3-11) BUN 55 H (6-23) mg/dl Creatinine 2.83 H (0.6-1.4) mg/dl Est Cr Clr Drug Dosing Not Reportable Est GFR ( Amer) 26.3 ml/min Est GFR (Non-Af Amer) 22.7 ml/min BUN/Creatinine Ratio 19.4 (10-20) Glucose 120 H (70-99(Fasting)) mg/dl Lactate (0.4-2.0) mmol/L Calcium 8.6 (8.5-10.1) mg/dl Magnesium 2.1 (1.7-2.4) mg/dl Total Bilirubin 2.7 H (0.2-1.0) mg/dl AST 24 (13-39) U/L ALT 20 (7-52) U/L Alkaline Phosphatase 121 H (34-104) U/L Ammonia (18-72) umol/L Total Creatine Kinase 19 L (30-223) U/L Troponin I High Sens 7.1 (0-20) pg/ml Total Protein 6.6 (6.0-8.3) gm/dl Albumin 2.7 L (3.4-5.0) gm/dl Globulin 3.9 (2.5-4.0) gm/dl Albumin/Globulin Ratio 0.7 L (0.9-2) TSH (0.300-4.500) uIu/ml Free T4 (0.61-1.60) ng/dl SARS-CoV-2 (PCR) (Negative) Influenza Type A (PCR) (Neg) Influenza Type B (PCR) (Neg) RSV (RT-PCR) (Neg) 10/24/22 10/24/22 10/24/22 Range/Units 13:36 13:36 14:05 WBC (4.8-10.8) K/ul RBC (4.63-6.08) M/uL Hgb (14.0-18.0) g/dl Hct (40.1-51.0) % MCV (80.0-100.0) fL MCH (25.0-34.0) pg MCHC (32.0-36.0) g/dL RDW Std Deviation (36.4-46.3) fL RDW Coeff of Elizabeth (11.5-14.5) % Plt Count (130-400) K/uL MPV (9.4-12.4) fL Immature Gran % (Auto) % Neut % (Auto) % Lymph % (Auto) % [place] % (Auto) % Eos % (Auto) % Baso % (Auto) % Neut # (Auto) (1.4-6.5) K/uL Lymph # (Auto) (1.2-3.4) K/uL [place] # (Auto) (0.24-0.82) K/uL Eos # (Auto) (0-0.50) K/uL Baso # (Auto) (0-0.2) K/uL Immature Gran # (Auto) (0.00-0.02) K/uL PT (9.0-12.0) Seconds INR (0.9-1.1) APTT (21.0-31.0) Seconds PTT Ratio Sodium (136-145) mmol/L Potassium (3.5-5.1) mmol/L Chloride (98-107) mmol/L Carbon Dioxide (21-32) mmol/L Anion Gap (3-11) BUN (6-23) mg/dl Creatinine (0.6-1.4) mg/dl Est Cr Clr Drug Dosing Est GFR ( Amer) ml/min Est GFR (Non-Af Amer) ml/min BUN/Creatinine Ratio (10-20) Glucose (70-99(Fasting)) mg/dl Lactate 2.4 H* (0.4-2.0) mmol/L Calcium (8.5-10.1) mg/dl Magnesium (1.7-2.4) mg/dl Total Bilirubin (0.2-1.0) mg/dl AST (13-39) U/L ALT (7-52) U/L Alkaline Phosphatase (34-104) U/L Ammonia 70.0 (18-72) umol/L Total Creatine Kinase (30-223) U/L Troponin I High Sens (0-20) pg/ml Total Protein (6.0-8.3) gm/dl Albumin (3.4-5.0) gm/dl Globulin (2.5-4.0) gm/dl Albumin/Globulin Ratio (0.9-2) TSH 4.870 H (0.300-4.500) uIu/ml Free T4 1.03 (0.61-1.60) ng/dl SARS-CoV-2 (PCR) (Negative) Influenza Type A (PCR) (Neg) Influenza Type B (PCR) (Neg) RSV (RT-PCR) (Neg) 10/24/22 10/24/22 Range/Units 16:00 Unknown WBC (4.8-10.8) K/ul RBC (4.63-6.08) M/uL Hgb (14.0-18.0) g/dl Hct (40.1-51.0) % MCV (80.0-100.0) fL MCH (25.0-34.0) pg MCHC (32.0-36.0) g/dL RDW Std Deviation (36.4-46.3) fL RDW Coeff of Elizabeth (11.5-14.5) % Plt Count (130-400) K/uL MPV (9.4-12.4) fL Immature Gran % (Auto) % Neut % (Auto) % Lymph % (Auto) % [place] % (Auto) % Eos % (Auto) % Baso % (Auto) % Neut # (Auto) (1.4-6.5) K/uL Lymph # (Auto) (1.2-3.4) K/uL [place] # (Auto) (0.24-0.82) K/uL Eos # (Auto) (0-0.50) K/uL Baso # (Auto) (0-0.2) K/uL Immature Gran # (Auto) (0.00-0.02) K/uL PT (9.0-12.0) Seconds INR (0.9-1.1) APTT (21.0-31.0) Seconds PTT Ratio Sodium (136-145) mmol/L Potassium (3.5-5.1) mmol/L Chloride (98-107) mmol/L Carbon Dioxide (21-32) mmol/L Anion Gap (3-11) BUN (6-23) mg/dl Creatinine (0.6-1.4) mg/dl Est Cr Clr Drug Dosing Est GFR ( Amer) ml/min Est GFR (Non-Af Amer) ml/min BUN/Creatinine Ratio (10-20) Glucose (70-99(Fasting)) mg/dl Lactate 1.9 (0.4-2.0) mmol/L Calcium (8.5-10.1) mg/dl Magnesium (1.7-2.4) mg/dl Total Bilirubin (0.2-1.0) mg/dl AST (13-39) U/L ALT (7-52) U/L Alkaline Phosphatase (34-104) U/L Ammonia (18-72) umol/L Total Creatine Kinase (30-223) U/L Troponin I High Sens (0-20) pg/ml Total Protein (6.0-8.3) gm/dl Albumin (3.4-5.0) gm/dl Globulin (2.5-4.0) gm/dl Albumin/Globulin Ratio (0.9-2) TSH (0.300-4.500) uIu/ml Free T4 (0.61-1.60) ng/dl SARS-CoV-2 (PCR) NEGATIVE (Negative) Influenza Type A (PCR) Negative (Neg) Influenza Type B (PCR) Negative (Neg) RSV (RT-PCR) Negative (Neg) Administered Medications Discontinued Medications Sodium Chloride (Nss) 500 mls @ 999 mls/hr IV .Q31M ONE Stop: 10/24/22 14:50 Last Infusion: 10/24/22 15:20 Dose: 0 mls/hr Documented By: Admin: 10/24/22 14:23 Dose: 999 mls/hr Documented By: DUGLAS Imaging Data Radiologist's Impression: Chest X-Ray 10/24/22 11:09 XR chest 1V portable CLINICAL HISTORY: weakness TECHNIQUE: Single frontal radiograph of the chest was obtained. Comparison: Comparison is made to chest radiograph 08/10/2022 FINDINGS: No lines and tubes are seen. Calcified aortic knob is seen. Lungs are underinflated but clear. No evidence of pleural effusion or pneumothorax. IMPRESSION: No acute chest disease. ACT 112: Negative or not required by law. Electronically signed by: Reymundo Diehl M.D. 10/24/2022 11:[address] 10/24/22 11:09 CT SCAN OF THE BRAIN WITHOUT IV CONTRAST CLINICAL HISTORY: Change in mental status. COMPARISON STUDY: No priors. TECHNIQUE: Unenhanced axial CT scan of the brain is performed from the vertex to the skull base. A dose lowering technique was utilized adhering to the principles of ALARA. CT DOSE: 537.48 mGy.cm FINDINGS: Brain parenchyma: There is age-related involutional change noting mild subcortical and periventricular microangiopathic disease. There is no hemorrhage, mass effect, or evidence of acute territorial ischemia by CT criteria. Devine-white matter differentiation is preserved. No extra-axial fluid collection is seen. Ventricles, sulci, cisterns: Prominent secondary to involutional change. Intracranial vasculature: There is atherosclerotic calcification of the cavernous carotid and vertebral arteries. Calvarium: Unremarkable. Sinuses and mastoids: The visualized paranasal sinuses are clear. The mastoid air cells are well pneumatized. Orbits: The bony orbits are grossly intact. IMPRESSION: There is no hemorrhage, mass effect, or evidence of acute territorial ischemia by CT criteria. ACT 112: Negative or not required by law. Electronically signed by: Kareem Youngblood M.D. 10/24/2022 12:43 PM Abdomen/Pelvis CT 10/24/22 14:33 CT SCAN OF THE ABDOMEN AND PELVIS WITHOUT IV CONTRAST CLINICAL HISTORY: Abdominal distention. Cirrhosis. COMPARISON STUDY: Abdominal CT dated 08/10/2022. TECHNIQUE: CT scan of the abdomen and pelvis is performed from the lung bases to the proximal femora. Images are reviewed in the axial, sagittal, and coronal planes. IV contrast was not administered for this examination. Note that the examination was performed in suboptimal fashion without oral and IV contrast. A dose lowering technique was utilized adhering to the principles of ALARA. CT DOSE: 917.33 mGycm FINDINGS: Lung bases: The heart is normal in size and without pericardial effusion. The coronary arteries are densely calcified. The lung bases are clear noted bibasilar scar/atelectasis. Liver: The unenhanced liver is cirrhotic in morphology and heterogeneous attenuation. There is nodularity of the hepatic surface contour. There is no intrahepatic biliary ductal dilatation. There is recanalization of the periumbilical vein. Gallbladder: There are calcified gallstones with no CT evidence of acute cholecystitis. Spleen: Normal in size and attenuation. Pancreas: The unenhanced pancreas is atrophic and grossly unremarkable. Adrenal glands: Unremarkable. Kidneys: The unenhanced kidneys demonstrate cortical atrophy and are without hydronephrosis. There are no renal calculi identified. There is no evidence of contour deforming renal mass lesion. Abdominal vasculature: The abdominal aorta is normal in course and caliber noting advanced atherosclerotic calcification. Bowel: There is moderate colonic diverticulosis without CT evidence of acute diverticulitis. No bowel obstruction is seen. Duodenal diverticula are noted. The appendix is well-visualized and normal. Peritoneum: There is a large volume of abdominopelvic ascites. No intraperitoneal free air is seen. Lymphadenopathy: None. Pelvic viscera: The bladder is normal as visualized. The prostate gland is diminutive and heterogeneous. There are bilateral fat-containing inguinal hernias. Skeletal structures: The skeletal structures are osteopenic. There is moderate to advanced lumbosacral spondylosis. No lytic or blastic lesions are seen. There is a subacute-appearing left lateral 10th rib fracture. There are additional chronic/healed right-sided rib fractures. IMPRESSION: 1. The liver is cirrhotic in morphology and heterogeneous in attenuation. 2. A large volume abdominopelvic ascites and recanalization of the periumbilical vein indicate portal hypertension. 3. Colonic diverticulosis without CT evidence of acute diverticulitis. 4. Subacute appearing left lateral 10th rib fracture. 5. Cholelithiasis. 6. Additional findings as above. ACT 112: Negative or not required by law. Electronically signed by: Kareem Youngblood M.D. 10/24/2022 3:47 PM Discharge Plan Visit Data Chief Complaint: Confusion Stated Complaint: Liver dis, confused, hallucinating, weak, edema ED Provider: Rodolfo Mora Discharge Problem: SALIMA (acute kidney injury), Hyponatremia, Hallucinations, History of cirrhosis of liver Patient Disposition: Being Evaluated by Hospitalist Forms Stand Alone Forms: My [facility] Prescriptions Prescriptions: No Action spironolactone 25 mg tablet 50 mg PO QAM 30 Days Qty: 60 11RF potassium chloride [Klor-Con M20] 20 mEq tablet,ER particles/crystals 20 meq PO DAILY Qty: 30 2RF lactulose 20 gram/30 mL solution 20 g PO TID Qty: 8100 3RF mirtazapine 15 mg tablet 15 mg PO HS Qty: 90 3RF furosemide 20 mg tablet 20 mg PO DAILY Qty: 30 2RF pantoprazole 40 mg tablet,delayed release (DR/EC) 40 mg PO DAILY Qty: 30 2RF Referrals Referrals: Roge Childers MD [Primary Care Provider] -
[2022-10-24 13:38] LABS: Influenza A virus by PCR Negative (Neg); Influenza B virus by PCR Negative (Neg); RSV by PCR Negative (Neg); SARS CoV2 RNA(COVID-19) Ceph NEGATIVE (Negative)
[2022-10-24 13:52] LABS: Basophils # (auto) 0.07 K/uL (0-0.2); Basophils % (auto) 0.9 %; Eosinophils % (auto) 1.2 %; Hematocrit (blood only) 32.5 % (40.1-51.0); Hemoglobin 11.9 g/dl (14.0-18.0); Immature Granulocytes # (auto) 0.05 K/uL (0.00-0.02); Immature Granulocytes % (auto) 0.6 %; Mean Corpuscular Hemoglobin 31.5 pg (25.0-34.0); Mean Corpuscular Hgb Conc 36.6 g/dL (32.0-36.0); Mean Platelet Volume 10.1 fL (9.4-12.4); Monocytes # (auto) 0.91 K/uL (0.24-0.82); Monocytes % (auto) 11.2 %; Neutrophils # (auto) 5.69 K/uL (1.4-6.5); Neutrophils % (auto) 70.1 %; Platelet Count 239 K/uL (130-400); RDW Coefficient of Variation 16.8 % (11.5-14.5); RDW Standard Deviation 51.1 fL (36.4-46.3); Red Blood Count 3.78 M/uL (4.63-6.08); White Blood Count 8.12 K/ul (4.8-10.8)
[2022-10-24 14:09] LABS: INR 1.3 (0.9-1.1); Partial Thromboplastin Ratio 1.2; Partial Thromboplastin Time 33.6 Seconds (21.0-31.0); Prothrombin Time 13.6 Seconds (9.0-12.0)
[2022-10-24 14:15] LABS: Alanine Aminotransferase 20 U/L (7-52); Albumin Globulin Ratio 0.7 (0.9-2); Albumin Level 2.7 gm/dl (3.4-5.0); Alkaline Phosphatase 121 U/L (34-104); Anion Gap 9 (3-11); Aspartate Aminotransferase 24 U/L (13-39); BUN Creatinine Ratio 19.4 (10-20); Bilirubin,Total 2.7 mg/dl (0.2-1.0); Blood Urea Nitrogen 55 mg/dl (6-23); Calcium 8.6 mg/dl (8.5-10.1); Carbon Dioxide 19 mmol/L (21-32); Chloride 103 mmol/L (98-107); Creatine Kinase 19 U/L (30-223); Est GFR (African American) 26.3 ml/min; Est GFR (Non-African American) 22.7 ml/min; Globulin 3.9 gm/dl (2.5-4.0); Glucose 120 mg/dl (70-99(Fasting)); Magnesium 2.1 mg/dl (1.7-2.4); Potassium 4.1 mmol/L (3.5-5.1); Sodium 131 mmol/L (136-145); Total Protein 6.6 gm/dl (6.0-8.3)
[2022-10-24 14:17] LABS: Troponin I High Sensitivity 7.1 pg/ml (0-20)
[2022-10-24] MEDS ORDERED: SODIUM CHLORIDE 0.9% 500 ML IV ONE (14:20)
[2022-10-24 14:26] LABS: Thyroid Stimulating Hormone 4.87 uIu/ml (0.300-4.500)
--- NOTE | 2022-10-24 15:48 | CT Scan Report ---
CT SCAN OF THE ABDOMEN AND PELVIS WITHOUT IV CONTRAST CLINICAL HISTORY: Abdominal distention. Cirrhosis. COMPARISON STUDY: Abdominal CT dated 08/10/2022. TECHNIQUE: CT scan of the abdomen and pelvis is performed from the lung bases to the proximal femora. Images are reviewed in the axial, sagittal, and coronal planes. IV contrast was not administered for this examination. Note that the examination was performed in suboptimal fashion without oral and IV contrast. A dose lowering technique was utilized adhering to the principles of ALARA. CT DOSE: 917.33 mGycm FINDINGS: Lung bases: The heart is normal in size and without pericardial effusion. The coronary arteries are d ensely calcified. The lung bases are clear noted bibasilar scar/atelectasis. Liver: The unenhanced liver is cirrhotic in morphology and heterogeneous attenuation. There is nodula rity of the hepatic surface contour. There is no intrahepatic biliary ductal dilatation. There is rec analization of the periumbilical vein. Gallbladder: There are calcified gallstones with no CT evidence of acute cholecystitis. Spleen: Normal in size and attenuation. Pancreas: The unenhanced pancreas is atrophic and grossly unremarkable. Adrenal glands: Unremarkable. Kidneys: The unenhanced kidneys demonstrate cortical atrophy and are without hydronephrosis. There ar e no renal calculi identified. There is no evidence of contour deforming renal mass lesion. Abdominal vasculature: The abdominal aorta is normal in course and caliber noting advanced atheroscle rotic calcification. Bowel: There is moderate colonic diverticulosis without CT evidence of acute diverticulitis. No bowel obstruction is seen. Duodenal diverticula are noted. The appendix is well-visualized and normal. Peritoneum: There is a large volume of abdominopelvic ascites. No intraperitoneal free air is seen. Lymphadenopathy: None. Pelvic viscera: The bladder is normal as visualized. The prostate gland is diminutive and heterogeneo us. There are bilateral fat-containing inguinal hernias. Skeletal structures: The skeletal structures are osteopenic. There is moderate to advanced lumbosacra l spondylosis. No lytic or blastic lesions are seen. There is a subacute-appearing left lateral 10th rib fracture. There are additional chronic/healed right-sided rib fractures. IMPRESSION: 1. The liver is cirrhotic in morphology and heterogeneous in attenuation. 2. A large volume abdominopelvic ascites and recanalization of the periumbilical vein indicate portal hypertension. 3. Colonic diverticulosis without CT evidence of acute diverticulitis. 4. Subacute appearing left lateral 10th rib fracture. 5. Cholelithiasis. 6. Additional findings as above. ACT 112: Negative or not required by law. Electronically signed by: Kareem Youngblood M.D. 10/24/2022 3:47 PM
[2022-10-24 15:50] LABS: T4 Free Thyroxine 1.03 ng/dl (0.61-1.60)
--- NOTE | 2022-10-24 16:10 | History & Physical Report ---
Date of Service October 24, 2022 Assessment & Plan (1) Acute renal failure: Plan: -Admit to med tele -The patient is currently afebrile, hemodynamically stable, and stable on RA -Patient found to have a Cr of 2.8 today, up from 1.77 on 10/09/22 -The patient was noted to have a large amount of ascites in his abdomen, otherwise he examines as dehydrated intravascularly, could possibly be a component of hepatorenal syndrome but will have to wait to see how he responds to the initial therapy -The patient is likely dehydrated due to his diuretics and poor oral intake, had an admission here last month with a similar presentation -S/P 500 mL NSS bolus in the ED -Hold lasix and spironolactone for now, monitor intake and output -Will hold additional IV fluids at this time as he will likely continue to third space with more -Will monitor AM renal function and electrolytes on CMP -Avoid nephrotoxic agents -Iván start with a regular diet and SCDs for DVT PPX (2) Alcoholic cirrhosis: Plan: -AST and ALT are currently stable -Patient noted to have a large amount of abdominal ascites on CT today -Abdomen is enlarged but not firm or tender -Have placed a GI consult to see if they would want a paracentesis and to further evaluate for the need of a TIPS procedure at this time -Hold lasix and spironolactone for now with his renal failure -Continue lactulose, ammonia today is 70 -AM CBC and CMP (3) Lactate blood increase: Plan: -Initial lactate elevated at 2.4, repeat is now 1.9 after IV fluids -No signs of systemic infection, likely related to his cirrhosis and dehydration (4) Hypertension: Plan: -BPs have been soft with systolics in the 90's -Will continue to monitor after IV fluids and holding diuretics -Monitor on tele (5) Impaired fasting glucose: Plan: -A1c in September was 4.7, continue to monitor Plan The patient was discussed with Dr. Potter at the time of the admission History of Present Illness Chief Complaint: Generalized weakness and confusion Primary Care Provider: Roge Childers MD Suresh is a 62 year old male with a PMH significant for Alcoholic cirrhosis, HTN, hyperlipidemia, BPH, depression with suicidal ideations, and GERD who pre sented to the [facility] ED 0n 10/24/22 with complaints of worsening generalized weakness, abdominal discomfort, and confusion. In the ED the patient was found to be afebrile, soft blood pressures with sys tolics in the 90's, and stable on RA. Labs were remarkable for A WBC WNL, stable Hgb and platelets, INR of 1.3, cr of 2.83 (baseline appears to be around 1.0- 1.2), BUN of 55, sodium of 131 (up from 128 as of 10/09), otherwise stable electrolytes, AG of 9 with a bicarb of 19, lactate of 2.4, total bili of 2.7 and alk phos of 121 otherwise stable liver enzymes, ammonia of 70, total ck of 19, albumin of 2.7, TSH of 4.8 with a free T4 WNL, Covid/Influenza/RSV negative. CT of the head and chest xray were read as no acute findings. CT of the abdomen/pelvis without IV contrast was read as "1. The liver is cirrhotic in morphology and heterogeneous in attenuation. 2. A large volume abdominopelvic ascites and recanalization of the periumbilical vein indicate portal hypertension. 3. Colonic diverticulosis without CT evidence of acute diverticulitis. 4. Subacute appearing left lateral 10th rib fracture. 5. Cholelithiasis.6. Additional findings as above.". Prior to admission the patient was given a 500 mL NSS bolus. At the time of the exam the patient was lying comfortably in bed in no acute distress with his sitting bedside, history was obtained from both. His states that over the past week the patient has been generally weak, needing to hold onto things in the home to support himself with ambulation. She states that he also has been having more abdominal distention over the past week. He denies recent fevers, chills, chest pain, SOB, cough, abdominal pain, nausea, vomiting, dysuria, hematuria, and recent falls. His states that he has been having a poor appetite, he has only been eating fruit and candy. The patient states that he has been feeling more weak in his BL LEs, he states that he does not like his current walker and would use a different one if needed. They follow with Dr. Mims, is scheduled to have a liver MRI on 10/28, and has an appointment next month with the new Director Transportation in [facility], Dr. Caceres. He did not take any of his medications yet today. He has been taking his lactulose as prescribed and has at least 3 loose BMs most days of the week. The patient is a Full Code, his would make decisions for him if he could not make them himseld. Please refer to Dr. Potter's attestation for any changes to the treatment plan Allergies Allergy/AdvReac Type Severity Reaction Status Date / Time amlodipine [From [facility]] AdvReac Unknown PT UNAWARE Verified 10/24/22 15:26 OF THIS ALLERGY OR REACTION??? Home Medications Medication Instructions Recorded Confirmed Type furosemide 20 mg tablet 20 mg PO DAILY #30 tabs 08/19/22 10/24/22 Rx pantoprazole 40 mg tablet,delayed 40 mg PO DAILY #30 tabs 08/19/22 10/24/22 Rx release spironolactone 25 mg tablet 50 mg PO QAM 30 days #60 tabs 09/17/22 10/24/22 Rx potassium chloride 20 mEq 20 meq PO DAILY #30 tabs 09/22/22 10/24/22 Rx tablet,extended release(part/cryst) (Klor-Con M) lactulose 20 gram/30 mL oral 20 g (30 mL) PO TID #8,100 mL 10/08/22 10/24/22 Rx solution mirtazapine 15 mg tablet 15 mg PO HS #90 tabs 10/14/22 10/24/22 Rx Past Med/Surg History Medical History (Updated 10/24/22 @ 17:01 by Sourav Prince PA-C) Abdominal ascites Accelerated junctional rhythm Alcohol abuse Alcoholic cirrhosis Alcoholic cirrhosis of liver Anemia Ascites Asthmatic bronchitis Blurred vision BPH (benign prostatic hyperplasia) Depression with anxiety Dermatitis Diarrhea Elevated LFTs Elevated liver enzymes Erectile dysfunction ETOH abuse Hyperlipidemia Hypertension Impaired fasting glucose Melena Noncompliance with medication regimen Portal hypertension Surgical History H/O esophagogastroduodenoscopy History of tonsillectomy and adenoidectomy Family History Father Heart disease Cardiomegaly Pacemaker Cardiac rhythm disorder or disturbance or change Mother Heart disease Pacemaker Social History Smoking Status: Never smoker Hx Alcohol Use: No Hx Substance Use: Yes Substance Use Type Other:: used last evening Preferred Language: German Communication Ability: Effective Combatant 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 Officer Required: No Beliefs That Will Affect Care: None marital status: marital status details: hx of Current Living Situation: Spouse current occupational status: previously employed 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 All systems have been reviewed and are otherwise negative. Physical Exam Physical Exam: Physical Exam: General: In no acute distress, stated age, chronically ill-appearing HEENT: Normocephalic, atraumatic, trace scleral icterus, pupils around round, symmetrical, and reactive to light, dry mucus membranes, trachea midline, no thyromegaly Chest/Pulm: No respiratory distress symmetrical chest expansion, clear breath sounds throughout Cardiac: RRR, no murmurs noted Abdomen: positive for ascites, normoactive bowel sounds, soft, non-tender to palpation throughout Musculoskeletal: Symmetrical and without signs of acute trauma, upper and lower extremities with full ROM, no atrophy, spasticity, or flaccidity Extremities: Radial, dorsalis pedis, and posterior tibial pulses are intact and symmetrical, +1 edema noted in the BL LE's Skin: Warm, dry, no rashes , lesions, or scars noted Neuro: Alert and oriented to person, place, month, year, and president, no focal defects, CN II-XII tested and intact,no tremors noted Psych: No acute distress, calm and cooperative during the exam Results & Data Results & Data ([facility]) Vital Signs (Past 12 Hours) Vital Signs Temp Pulse Pulse Resp BP BP Pulse Ox 10/24/22 15:15 86 18 97/70 L 100 10/24/22 13:56 10/24/22 13:45 90 20 96 10/24/22 13:45 93 H 20 101/66 95 10/24/22 11:03 37.5 C 108 H 18 91/62 L 94 O2 Del Method 10/24/22 15:15 Room Air 10/24/22 13:56 Room Air 10/24/22 13:45 10/24/22 13:45 Room Air 10/24/22 11:03 Room Air Laboratory Results Abnormal lab results 10/24/22 10/24/22 10/24/22 Range/Units 13:36 13:36 13:36 RBC 3.78 L (4.63-6.08) M/uL Hgb 11.9 L (14.0-18.0) g/dl Hct 32.5 L (40.1-51.0) % MCHC 36.6 H (32.0-36.0) g/dL RDW Std Deviation 51.1 H (36.4-46.3) fL RDW Coeff of Elizabeth 16.8 H (11.5-14.5) % Taylor # (Auto) 0.91 H (0.24-0.82) K/uL Immature Gran # (Auto) 0.05 H (0.00-0.02) K/uL PT 13.6 H (9.0-12.0) Seconds INR 1.3 H (0.9-1.1) APTT 33.6 H (21.0-31.0) Seconds Sodium 131 L (136-145) mmol/L Carbon Dioxide 19 L (21-32) mmol/L BUN 55 H (6-23) mg/dl Creatinine 2.83 H (0.6-1.4) mg/dl Glucose 120 H (70-99(Fasting)) mg/dl Lactate (0.4-2.0) mmol/L Total Bilirubin 2.7 H (0.2-1.0) mg/dl Alkaline Phosphatase 121 H (34-104) U/L Total Creatine Kinase 19 L (30-223) U/L Albumin 2.7 L (3.4-5.0) gm/dl Albumin/Globulin Ratio 0.7 L (0.9-2) TSH (0.300-4.500) uIu/ml 10/24/22 10/24/22 Range/Units 13:36 13:36 RBC (4.63-6.08) M/uL Hgb (14.0-18.0) g/dl Hct (40.1-51.0) % MCHC (32.0-36.0) g/dL RDW Std Deviation (36.4-46.3) fL RDW Coeff of Elizabeth (11.5-14.5) % Taylor # (Auto) (0.24-0.82) K/uL Immature Gran # (Auto) (0.00-0.02) K/uL PT (9.0-12.0) Seconds INR (0.9-1.1) APTT (21.0-31.0) Seconds Sodium (136-145) mmol/L Carbon Dioxide (21-32) mmol/L BUN (6-23) mg/dl Creatinine (0.6-1.4) mg/dl Glucose (70-99(Fasting)) mg/dl Lactate 2.4 H* (0.4-2.0) mmol/L Total Bilirubin (0.2-1.0) mg/dl Alkaline Phosphatase (34-104) U/L Total Creatine Kinase (30-223) U/L Albumin (3.4-5.0) gm/dl Albumin/Globulin Ratio (0.9-2) TSH 4.870 H (0.300-4.500) uIu/ml Diagnostic Findings Chest X-Ray 10/24/22 11:09 XR chest 1V portable CLINICAL HISTORY: weakness TECHNIQUE: Single frontal radiograph of the chest was obtained. Comparison: Comparison is made to chest radiograph 08/10/2022 FINDINGS: No lines and tubes are seen. Calcified aortic knob is seen. Lungs are underinflated but clear. No evidence of pleural effusion or pneumothorax. IMPRESSION: No acute chest disease. ACT 112: Negative or not required by law. Electronically signed by: Reymundo Diehl M.D. 10/24/2022 11:[address] 10/24/22 11:09 CT SCAN OF THE BRAIN WITHOUT IV CONTRAST CLINICAL HISTORY: Change in mental status. COMPARISON STUDY: No priors. TECHNIQUE: Unenhanced axial CT scan of the brain is performed from the vertex to the skull base. A dose lowering technique was utilized adhering to the principles of ALARA. CT DOSE: 537.48 mGy.cm FINDINGS: Brain parenchyma: There is age-related involutional change noting mild subcortical and periventricular microangiopathic disease. There is no hemorrhage, mass effect, or evidence of acute territorial ischemia by CT criteria. Devine-white matter differentiation is preserved. No extra-axial fluid collection is seen. Ventricles, sulci, cisterns: Prominent secondary to involutional change. Intracranial vasculature: There is atherosclerotic calcification of the cavernous carotid and vertebral arteries. Calvarium: Unremarkable. Sinuses and mastoids: The visualized paranasal sinuses are clear. The mastoid air cells are well pneumatized. Orbits: The bony orbits are grossly intact. IMPRESSION: There is no hemorrhage, mass effect, or evidence of acute territorial ischemia by CT criteria. ACT 112: Negative or not required by law. Electronically signed by: Kareem Youngblood M.D. 10/24/2022 12:43 PM Abdomen/Pelvis CT 10/24/22 14:33 CT SCAN OF THE ABDOMEN AND PELVIS WITHOUT IV CONTRAST CLINICAL HISTORY: Abdominal distention. Cirrhosis. COMPARISON STUDY: Abdominal CT dated 08/10/2022. TECHNIQUE: CT scan of the abdomen and pelvis is performed from the lung bases to the proximal femora. Images are reviewed in the axial, sagittal, and coronal planes. IV contrast was not administered for this examination. Note that the examination was performed in suboptimal fashion without oral and IV contrast. A dose lowering technique was utilized adhering to the principles of ALARA. CT DOSE: 917.33 mGycm FINDINGS: Lung bases: The heart is normal in size and without pericardial effusion. The coronary arteries are densely calcified. The lung bases are clear noted bibasilar scar/atelectasis. Liver: The unenhanced liver is cirrhotic in morphology and heterogeneous attenuation. There is nodularity of the hepatic surface contour. There is no intrahepatic biliary ductal dilatation. There is recanalization of the periumbilical vein. Gallbladder: There are calcified gallstones with no CT evidence of acute cholecystitis. Spleen: Normal in size and attenuation. Pancreas: The unenhanced pancreas is atrophic and grossly unremarkable. Adrenal glands: Unremarkable. Kidneys: The unenhanced kidneys demonstrate cortical atrophy and are without hydronephrosis. There are no renal calculi identified. There is no evidence of contour deforming renal mass lesion. Abdominal vasculature: The abdominal aorta is normal in course and caliber noting advanced atherosclerotic calcification. Bowel: There is moderate colonic diverticulosis without CT evidence of acute diverticulitis. No bowel obstruction is seen. Duodenal diverticula are noted. The appendix is well-visualized and normal. Peritoneum: There is a large volume of abdominopelvic ascites. No intraperitoneal free air is seen. Lymphadenopathy: None. Pelvic viscera: The bladder is normal as visualized. The prostate gland is diminutive and heterogeneous. There are bilateral fat-containing inguinal hernias. Skeletal structures: The skeletal structures are osteopenic. There is moderate to advanced lumbosacral spondylosis. No lytic or blastic lesions are seen. There is a subacute-appearing left lateral 10th rib fracture. There are additional chronic/healed right-sided rib fractures. IMPRESSION: 1. The liver is cirrhotic in morphology and heterogeneous in attenuation. 2. A large volume abdominopelvic ascites and recanalization of the periumbilical vein indicate portal hypertension. 3. Colonic diverticulosis without CT evidence of acute diverticulitis. 4. Subacute appearing left lateral 10th rib fracture. 5. Cholelithiasis. 6. Additional findings as above. ACT 112: Negative or not required by law. Electronically signed by: Kareem Youngblood M.D. 10/24/2022 3:47 PM ECG Additional Comments: Normal sinus rhythm Inferior infarct , age undetermined Possible Anterior infarct (cited on or before 10-AUG-2022) Abnormal ECG When compared with ECG of 12-SEP-2022 19:44, Inferior infarct is now Present Code Status & VTE Plan Code Status Full code VTE Prophylaxis Plan VTE Prophylaxis will be ordered: Yes Supervising Physician Co-Signing Physician Notes I personally saw and examined the patient. I verified all castaneda points and agree with Sourav Prince PA-C with the following exceptions and/or additions: 62 year old male with liver cirrhosis and ascites presents with worsening generalized weakness and confusion. In the ER found to be in SALIMA with Cr 2.83 from 2.55. He did not take his diuretics this morning and will miss 1-2 doses a week when he forgets to take them. O/E poorly nourished, A&Ox3, HS1+2, no murmurs, RRR, Chest CTAB, Abdo distended, soft nontender, Pedal pitting edema pre-tibial 1+ equal b/l A/P SALIMA - patient appears intravascularly dry despite significant ascites. Likely due to diarrhea and poor oral intake with low albumin. Stop diuretics - may need gentle IV fluids but will just encourage oral hydration on admission and monitor Cr. Suspect hepatorenal syndrome contributing although hopefully is reversible with stopping his diuretics. Suspect his ascites moving forward will just have to be dealt with. Consult GI to consider referral for TIPS or transplant. Ascites - no urgent need for paracentesis but suspect he will need this come Thursday after stopping his diuretics but to avoid further BP drop on admission will defer paracentesis. Abdomen is distended but soft and doubtful int raabdominal pressure contributing towards SALIMA. No concern for SBP given lack of pain. Does not need paracentesis for pain relief. Otherwise plan as above PG Care Time/CCT Total # of Minutes Spent Total Time Spent with Patient: Total time spent is greater than 50% in coordination of care (as documented) at patient's floor/unit and/or counseling patient: C[place] [address] INT INP/OBS CARE 3/75MIN Patient Type Established Medical Decision Making High Complexity Diagnoses Acute renal failure N17.9 Alcoholic cirrhosis K70.30 Lactate blood increase R79.89 Hypertension I10 Impaired fasting glucose R73.01
[2022-10-24] MEDS: MIRTAZAPINE TAB 15 MG TAB PO SCH (21:22)
[2022-10-24] MEDS: LACTULOSE SYRUP 20 GM/30 ML UDC PO SCH ×2 (21:22→21:54)
[2022-10-25 07:02] LABS: Hematocrit (blood only) 32.1 % (40.1-51.0); Hemoglobin 11.5 g/dl (14.0-18.0); Mean Corpuscular Hemoglobin 30.8 pg (25.0-34.0); Mean Corpuscular Hgb Conc 35.8 g/dL (32.0-36.0); Mean Corpuscular Volume 86.1 fL (80.0-100.0); Mean Platelet Volume 9.4 fL (9.4-12.4); Platelet Count 238 K/uL (130-400); RDW Coefficient of Variation 16.7 % (11.5-14.5); RDW Standard Deviation 51.7 fL (36.4-46.3); Red Blood Count 3.73 M/uL (4.63-6.08); White Blood Count 8.19 K/ul (4.8-10.8)
[2022-10-25 07:37] LABS: Appearance Urine Clear (Clear); Bacteria Urine Automated Negative (Negative); Bilirubin Urine Negative (Negative); Blood Urine Negative (Negative); Color Urine Dark Yellow; Glucose Urine UA Negative (Negative); Ketones Urine Trace (Negative); Leukocyte Esterase Urine Trace (Negative); Nitrite Urine Negative (Negative); Protein Urine Negative (Negative); RBC Urine Automated 0-4 /hpf (0-4); Specific Gravity Urine 1.018 (1.000-1.030); Urobilinogen Urine Negative (Negative); pH Urine 5.5 (4.5-7.5)
[2022-10-25 07:40] LABS: Albumin Globulin Ratio 0.7 (0.9-2); Albumin Level 2.6 gm/dl (3.4-5.0); BUN Creatinine Ratio 21.2 (10-20); Bilirubin,Total 3.3 mg/dl (0.2-1.0); Calcium 8.6 mg/dl (8.5-10.1); Creatinine Clr Calc Pharmacy 26.8 ml/min; Est GFR (African American) 29.8 ml/min; Est GFR (Non-African American) 25.7 ml/min; Globulin 3.7 gm/dl (2.5-4.0); INR 1.3 (0.9-1.1); Potassium 4.1 mmol/L (3.5-5.1); Prothrombin Time 13.4 Seconds (9.0-12.0); Total Protein 6.3 gm/dl (6.0-8.3)
[2022-10-25] MEDS: LACTULOSE SYRUP 20 GM/30 ML UDC PO SCH ×3 (09:35→19:28)
[2022-10-25] MEDS: PANTOprazole 40 MG TAB PO SCH (09:36)
[2022-10-25] MEDS: POTASSIUM CHLORIDE CRTAB 20 MEQ TABCR PO SCH (09:36)
--- NOTE | 2022-10-25 11:26 | Hospitalist Progress Note ---
Date of Service October 25, 2022 Assessment & Plan (1) Acute renal failure: Plan: -Patient has a history of liver cirrhosis -Admitted to the hospital on account of worsening ascites -Found to have a creatine of 2.8, it was 1.77 in September 2022 -Could be multifactorial, hepatorenal syndrome, intravascular fluid depletion. Has been on diuretics -he received 500 mL NSS bolus in the ED -Hold lasix and spironolactone for now, monitor intake and output -Will hold additional IV fluids at this time as he will likely continue to third space with more -Will monitor AM renal function and electrolytes on CMP -Avoid nephrotoxic agents -If no improvement, consult nephrology (2) Alcoholic cirrhosis: Plan: -AST and ALT are currently stable -Patient noted to have a large amount of abdominal ascites on CT -He gets frequent paracentesis -Have placed a GI consult to see if they would want a paracentesis and to further evaluate for the need of a TIPS procedure at this time -Hold lasix and spironolactone for now with his renal failure -Continue lactulose, ammonia is 70 -Paracentesis for thursday (3) Lactate blood increase: Plan: -Initial lactate elevated at 2.4, repeat is now 1.9 after IV fluids -No signs of systemic infection, likely related to his cirrhosis and dehydration (4) Hypertension: Plan: -BPs have been soft with systolics in the 90's -Will continue to monitor after IV fluids and holding diuretics -Monitor on tele (5) Impaired fasting glucose: Plan: -A1c in September was 4.7, continue to monitor Plan continue hospitalization scd full code Admission and Anticipated Discharge Date Admission Date: October 24, 2022 Subjective patient seen and examined, no new complaints Review of Systems Review of Systems: All systems reviewed are negative, apart from the ones contained in the history. Physical Exam Physical Exam: The patient is awake, alert and oriented 3, chronically ill looking HEENT--PERRL, EOMI, mucous membranes and oropharynx mildly dry Neck--supple. No JVD. No bruits. Thyroid normal, trachea midline, no adenopathy. Heart--normal S1 and S2. No murmurs, rubs or gallops. Lungs--clear bilaterally, no respiratory distress, no accessory muscle use. Abdomen--distended Extremities--no cyanosis or clubbing. No edema. Dermatologic--normal skin turgor, normal color, no abnormal lymph nodes, no rash. Neurologic--cranial nerves II through XII grossly intact. Rheumatologic--normal range of motion. Psychiatric--normal affect. Results & Data Results & Data ([facility]) Vital Signs (Past 12 Hours) Vital Signs Temp Pulse Pulse Resp BP Pulse Ox O2 Del Method 10/25/22 08:00 83 10/25/22 07:17 97.3 F L 104 H 20 94/65 L 98 Room Air 10/25/22 03:06 97.2 F L 79 20 89/58 L 97 Room Air PG Care Time/CCT Total # of Minutes Spent Total Time Spent with Patient: Total time spent is greater than 50% in coordination of care (as documented) at patient's floor/unit and/or counseling patient: Coding Level of Care Code 89038 SUB INP/OBS CARE 2/35MIN Diagnoses Acute renal failure N17.9 Alcoholic cirrhosis K70.30 Lactate blood increase R79.89 Hypertension I10 Impaired fasting glucose R73.01 Time Spent (min) 35
--- NOTE | 2022-10-25 12:55 | Gastrointestinal Consultation ---
Date of Consultation October 25, 2022 Assessment & Plan (1) Alcoholic cirrhosis: Patient is not interested in inpatient or outpatient alcohol rehab Non-compliant with 2 g Na reduced diet Not a transplant candidate at present due to continued alcohol use I again stressed the importance of 100% abstinence from alcohol as it is a known liver toxin (2) Acute renal failure: Hold Aldactone and Furosemide Recommend Renal consult to evaluate for HRS TIPS could be a consideration, as this is his second admission for ARF which may or may not be related to diuretic use (3) Ascites: Recommend Diagnostic/Therapeutic Paracentesis with fluid studies for Cell count with diff, Albumin, Total protein, C+S, and cytology Consider evaluation for placement of TIPS as outpatient History of Present Illness Reason for Consultation: Alcoholic Cirrhosis, Ascites, ARF Attending Physician: Bev Lanier MD History of Present Illness Suresh Pa is a 62 yo CM with an extensive PMHX including chronic alcohol abuse, alcohol induced cirrhosis, ascites and ARF who presented to the ER yesterday with complaints of generalized weakness and malaise. He had also noted increased swelling of the lower legs. Outpatient lab studies showed worsening kidney function. He had been offered an outpatient paracentesis, however, he declined. His most recent paracentesis from 10/03/2022 did not show any evidence of SBP. He was admitted last month as well for similar symptoms and at that time had refused to stop drinking alcohol, and refused the recommendation of either inpatient or outpatient rehab to help with his alcohol abuse. He was noted to have an elevated BUN/Cr, and CT imaging did show large volume ascites. He was subsequently admitted, and his Lasix/Aldactone were held. At the time I saw the patient, he states he is feeling, "the same as always." He denies any fevers, chills, nausea, vomiting, hematemesis, melena, hematochezia, acholic stools, dark urine, self-recognized jaundice, or pruritus. He denies any abdominal pain at this time. He has no further complaints. Allergies Allergy/AdvReac Type Severity Reaction Status Date / Time amlodipine [From [facility]] AdvReac Unknown PT UNAWARE Verified 10/24/22 15:26 OF THIS ALLERGY OR REACTION??? Home Medications Medication Instructions Recorded Confirmed Type furosemide 20 mg tablet 20 mg PO DAILY #30 tabs 08/19/22 10/24/22 Rx pantoprazole 40 mg tablet,delayed 40 mg PO DAILY #30 tabs 08/19/22 10/24/22 Rx release spironolactone 25 mg tablet 50 mg PO QAM 30 days #60 tabs 09/17/22 10/24/22 Rx potassium chloride 20 mEq 20 meq PO DAILY #30 tabs 09/22/22 10/24/22 Rx tablet,extended release(part/cryst) (Klor-Con M) lactulose 20 gram/30 mL oral 20 g (30 mL) PO TID #8,100 mL 10/08/22 10/24/22 Rx solution mirtazapine 15 mg tablet 15 mg PO HS #90 tabs 10/14/22 10/24/22 Rx Patient History Medical History (Updated 10/25/22 @ 12:58 by Paul Malik DO) Abdominal ascites Accelerated junctional rhythm Alcohol abuse Alcoholic cirrhosis Alcoholic cirrhosis of liver Anemia Ascites Asthmatic bronchitis Blurred vision BPH (benign prostatic hyperplasia) Depression with anxiety Dermatitis Diarrhea Elevated LFTs Elevated liver enzymes Erectile dysfunction ETOH abuse Hyperlipidemia Hypertension Impaired fasting glucose Melena Noncompliance with medication regimen Portal hypertension Surgical History H/O esophagogastroduodenoscopy History of tonsillectomy and adenoidectomy Family History Father Heart disease Cardiomegaly Pacemaker Cardiac rhythm disorder or disturbance or change Mother Heart disease Pacemaker Social History Smoking Status: Never smoker Hx Alcohol Use: No Hx Substance Use: Yes Substance Use Type Other:: used last evening Preferred Language: Pakistani Communication Ability: Effective Art Coordinator Required: No Beliefs That Will Affect Care: None marital status: marital status details: hx of Current Living Situation: Spouse current occupational status: previously employed 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 Feels Safe at Home: Yes Safety Concerns: Feels Safe At This Time Childhood Exposure to Second-Hand Smoke: No Assistive Devices: None Review of Systems Review of Systems: All systems reviewed & are unremarkable except as noted in Subjective Physical Exam Constitutional: + ill appearing (Chronic); no acute distress Eyes: sclerae not anicteric ENMT: external ear and nose normal, oropharynx normal Neck: trachea midline, no thyromegaly Respiratory: normal respiratory effort, lungs clear to auscultation Cardiovascular: RRR, no murmur, no edema Gastrointestinal (Abdomen): Inspection/Auscultation: + abdomen distended and normal bowel sounds Percussion/Palpation: abdomen soft, + ascites and + fluid wave; abdomen nontender, no guarding and abdomen not rigid Skin: no rashes, warm and dry Psychiatric: A+Ox3, euthymic affect Results & Data ([facility]) Vital Signs (Past 12 Hours) Vital Signs Temp Pulse Pulse Resp BP BP Pulse Ox 10/25/22 12:05 108/74 10/25/22 11:23 36.0 C L 84 18 76/48 L 99 10/25/22 08:00 83 10/25/22 07:17 36.3 C L 104 H 20 94/65 L 98 10/25/22 03:06 36.2 C L 79 20 89/58 L 97 O2 Del Method 10/25/22 12:05 10/25/22 11:23 Room Air 10/25/22 08:00 10/25/22 07:17 Room Air 10/25/22 03:06 Room Air PG Care Time/CCT Total # of Minutes Spent Total Time Spent with Patient: Total time spent is greater than 50% in coordination of care (as documented) at patient's floor/unit and/or counseling patient: Coding Level of Care Code INP/OBS CONSULT LVL 3, 45 MIN Diagnoses Alcoholic cirrhosis K70.30 Acute renal failure N17.9 Ascites R18.8
[2022-10-25] MEDS: MIRTAZAPINE TAB 15 MG TAB PO SCH (19:28)
[2022-10-26 07:02] LABS: Hematocrit (blood only) 29.3 % (40.1-51.0); Hemoglobin 10.6 g/dl (14.0-18.0); Mean Corpuscular Hemoglobin 30.8 pg (25.0-34.0); Mean Corpuscular Hgb Conc 36.2 g/dL (32.0-36.0); Mean Corpuscular Volume 85.2 fL (80.0-100.0); Mean Platelet Volume 10.2 fL (9.4-12.4); Platelet Count 216 K/uL (130-400); RDW Coefficient of Variation 16.8 % (11.5-14.5); RDW Standard Deviation 51.8 fL (36.4-46.3); Red Blood Count 3.44 M/uL (4.63-6.08); White Blood Count 7.19 K/ul (4.8-10.8)
[2022-10-26 07:35] LABS: Albumin Globulin Ratio 0.7 (0.9-2); Albumin Level 2.3 gm/dl (3.4-5.0); BUN Creatinine Ratio 21.8 (10-20); Bilirubin,Total 2.1 mg/dl (0.2-1.0); Calcium 8.2 mg/dl (8.5-10.1); Creatinine Clr Calc Pharmacy 28.5 ml/min; Est GFR (African American) 32.2 ml/min; Est GFR (Non-African American) 27.8 ml/min; Globulin 3.5 gm/dl (2.5-4.0); INR 1.3 (0.9-1.1); Potassium 4.1 mmol/L (3.5-5.1); Prothrombin Time 13.5 Seconds (9.0-12.0); Total Protein 5.8 gm/dl (6.0-8.3)
[2022-10-26] MEDS: POTASSIUM CHLORIDE CRTAB 20 MEQ TABCR PO SCH (08:25)
[2022-10-26] MEDS: PANTOprazole 40 MG TAB PO SCH (08:25)
[2022-10-26] MEDS: LACTULOSE SYRUP 20 GM/30 ML UDC PO SCH ×3 (08:27→20:29)
--- NOTE | 2022-10-26 11:47 | Hospitalist Progress Note ---
Date of Service October 26, 2022 Assessment & Plan (1) Acute renal failure: Plan: -Patient has a history of liver cirrhosis -Admitted to the hospital on account of worsening ascites -On admission, Found to have a creatine of 2.8, it was 1.77 in September 2022 -Could be multifactorial, hepatorenal syndrome, intravascular fluid depletion. Has been on diuretics -he received 500 mL NSS bolus in the ED -Will Hold lasix and spironolactone for now, monitor intake and output -Will hold additional IV fluids at this time -Will monitor AM renal function and electrolytes on CMP -Avoid nephrotoxic agents -Consult nephrology (2) Alcoholic cirrhosis: Plan: -AST and ALT are currently stable -Patient noted to have a large amount of abdominal ascites on CT -He gets frequent paracentesis -Have placed a GI consult to see if they would want a paracentesis and to further evaluate for the need of a TIPS procedure at this time -Hold lasix and spironolactone for now with his renal failure -Continue lactulose, -Paracentesis for thursday -Patient mostly non compliant with alcohol abstinence, not a candidate for transplant (3) Lactate blood increase: Plan: -Resolved -No signs of systemic infection, likely related to his cirrhosis and dehydration (4) Hypertension: Plan: -BPs have been soft with systolics in the 90's -Will continue to monitor after IV fluids and holding diuretics -Monitor on tele (5) Impaired fasting glucose: Plan: -A1c in September was 4.7, continue to monitor Plan continue hospitalization scd full code Admission and Anticipated Discharge Date Admission Date: October 24, 2022 Subjective patient seen and examined, no new complaints Review of Systems Review of Systems: All systems reviewed are negative, apart from the ones contained in the history. Physical Exam Physical Exam: The patient is awake, alert and oriented 3, chronically ill looking HEENT--PERRL, EOMI, mucous membranes and oropharynx mildly dry Neck--supple. No JVD. No bruits. Thyroid normal, trachea midline, no adenopathy. Heart--normal S1 and S2. No murmurs, rubs or gallops. Lungs--clear bilaterally, no respiratory distress, no accessory muscle use. Abdomen--distended Extremities--no cyanosis or clubbing. No edema. Dermatologic--normal skin turgor, normal color, no abnormal lymph nodes, no rash. Neurologic--cranial nerves II through XII grossly intact. Rheumatologic--normal range of motion. Psychiatric--normal affect. Results & Data Results & Data ([facility]) Vital Signs (Past 12 Hours) Vital Signs Temp Pulse Pulse Resp BP Pulse Ox O2 Del Method 10/26/22 11:25 98.1 F 92 H 20 98/67 L 99 Room Air 10/26/22 07:45 97.9 F 87 20 92/62 L 97 Room Air 10/26/22 07:04 91 H PG Care Time/CCT Total # of Minutes Spent Total Time Spent with Patient: Total time spent is greater than 50% in coordination of care (as documented) at patient's floor/unit and/or counseling patient: Coding Level of Care Code 22895 SUB INP/OBS CARE 2/35MIN Diagnoses Acute renal failure N17.9 Alcoholic cirrhosis K70.30 Lactate blood increase R79.89 Hypertension I10 Impaired fasting glucose R73.01 Time Spent (min) 35
--- NOTE | 2022-10-26 14:29 | Nephrology Consultation ---
Date of Consultation October 26, 2022 Assessment & Plan (1) SALIMA (acute kidney injury): Non-oliguric. Decreased EAV but increased TBW in setting of CLD. Creatinine stable since admission. Clinical history suggestive of progressive portal hypertension and possible HRS II. Thankfully, not consistent with HRS 1. BP remains slightly low. Intravascular volume a concern and paracentesis planned for tomorrow. At this time, I will start midodrine 5 mg TID, octreotide SQ Q8, and a small amount of IV albumin. Additional albumin to be provided post paracentesis tomorrow. UA has been bland. Microscopy acellular. Repeat urine sodium has been requested. Maintain low sodium diet. Avoid NSAIDS. Medications are appropriately dosed for kidney function. Repeat metabolic profile tomorrow AM. (2) Alcoholic cirrhosis: GI consultation reviewed. Paracentesis planned for tomorrow. MELD 25. Not currently candidate for transplant due to alcohol history. (3) Renal insufficiency: Kidneys with symmetric cortical atrophy on CT suggestive of some underlying CKD. No proteinuria. Creatinine 1.25 mg/dL in early September. (4) Ascites: The history of possible hepatitic encephalopathy or potential for TIPS in the future were not clear. Findings of increasing ascites and progressive CKD are concerning for potential HRS but it is also difficult to say at this time. Close monitoring will be required. History of Present Illness Reason for Consultation: SALIMA Requesting Physician: Bev Lanier MD Attending Physician: Bev Lanier MD History of Present Illness Mr. Suresh Pa is a 62 year-old male with alcoholic cirrhosis. He presented to [facility] on 10/24 with weakness, some reported confusion, and increasing abdominal ascites. Sruesh was recently admitted in September with weakness and dehydration. He had SALIMA at that time which improved with IVF. Creatinine was 1.77 mg/dL at the time of discharge. In early September, creatinine was 1.25 mg/dL. Creatinine is now 2.4 mg/dL. It has been relatively stable since admission. Suresh is non- oliguric. He reports some edema in his legs and persistent abdominal ascites. Therapeutic paracentesis scheduled for tomorrow. Suresh has never been previously evaluated by a repairer screen crusher. Diuretics have been held since admission and approximatey 1 L NS provided for intravascular volume expansion within 24 hours of admission. Additional IVF have been held. Home medications include furosemide, spironolactone, lactulose, and mirtazapine. mirtazapine added following psychiatric consultation in September. Suresh has struggled with persistent diarrhea/loose bowel movements. This was a concern during his prior admission. He has been maintained on lactulose PRN presumably for a history of HE. Medical history is also notable for major depressive disorder. Complications of cirrhosis include refractory ascites requiring frequent paracentesis. Suresh denies any fevers or chills. He denies abdominal pain. He does not consume NSAIDS. Urine sodium in September measured at 15. CT scan reviewed. Plan of care reviewed with Dr. Diaz. Allergies Allergy/AdvReac Type Severity Reaction Status Date / Time amlodipine [From [facility]] AdvReac Unknown PT UNAWARE Verified 10/24/22 15:26 OF THIS ALLERGY OR REACTION??? Home Medications Medication Instructions Recorded Confirmed Type furosemide 20 mg tablet 20 mg PO DAILY #30 tabs 08/19/22 10/24/22 Rx pantoprazole 40 mg tablet,delayed 40 mg PO DAILY #30 tabs 08/19/22 10/24/22 Rx release spironolactone 25 mg tablet 50 mg PO QAM 30 days #60 tabs 09/17/22 10/24/22 Rx potassium chloride 20 mEq 20 meq PO DAILY #30 tabs 09/22/22 10/24/22 Rx tablet,extended release(part/cryst) (Klor-Con M) lactulose 20 gram/30 mL oral 20 g (30 mL) PO TID #8,100 mL 10/08/22 10/24/22 Rx solution mirtazapine 15 mg tablet 15 mg PO HS #90 tabs 10/14/22 10/24/22 Rx Patient History Medical History Abdominal ascites Accelerated junctional rhythm Alcohol abuse Alcoholic cirrhosis Alcoholic cirrhosis of liver Anemia Ascites Asthmatic bronchitis Blurred vision BPH (benign prostatic hyperplasia) Depression with anxiety Dermatitis Diarrhea Elevated LFTs Elevated liver enzymes Erectile dysfunction ETOH abuse Hyperlipidemia Hypertension Impaired fasting glucose Melena Noncompliance with medication regimen Portal hypertension Surgical History H/O esophagogastroduodenoscopy History of tonsillectomy and adenoidectomy Family History Father Heart disease Cardiomegaly Pacemaker Cardiac rhythm disorder or disturbance or change Mother Heart disease Pacemaker Social History Smoking Status: Never smoker Hx Alcohol Use: No Hx Substance Use: Yes Substance Use Type Other:: used last evening Preferred Language: [place] Communication Ability: Effective Control Integration Engineer Required: No Beliefs That Will Affect Care: None marital status: marital status details: hx of Current Living Situation: Spouse current occupational status: previously employed 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 [employer] Feels Safe at Home: Yes Safety Concerns: Feels Safe At This Time Childhood Exposure to Second-Hand Smoke: No Assistive Devices: None Review of Systems Review of Systems: All systems reviewed & are unremarkable except as noted in HPI & below Physical Exam Constitutional: + ill appearing (Chronic); no acute distress Eyes: sclerae not anicteric and pupils not irregular ENMT: Mouth: no oropharynx abnormality and oral mucous membranes not dry Neck: trachea midline, no thyromegaly Respiratory: normal respiratory effort Auscultation: lungs clear to auscultation bilaterally Cardiovascular: Rate/Rhythm: regular rate Heart Sounds: normal S1 and normal S2 Extremities: + pedal edema Gastrointestinal (Abdomen): Inspection/Auscultation: + abdomen distended and normal bowel sounds Percussion/Palpation: abdomen soft, + ascites and + fluid wave; abdomen nontender, no guarding and abdomen not rigid Skin: no rashes, warm and dry Neurologic: Motor/Sensory: no tremor and no asterixis Psychiatric: Orientation: alert and oriented x 3 Results & Data ([facility]) Vital Signs (Past 12 Hours) Vital Signs Temp Pulse Pulse Resp BP Pulse Ox O2 Del Method 10/26/22 11:25 36.7 C 92 H 20 98/67 L 99 Room Air 10/26/22 07:45 36.6 C 87 20 92/62 L 97 Room Air 10/26/22 07:04 91 H Laboratory Results Laboratory Results - last 24 hr 10/26/22 10/26/22 10/26/22 06:32 06:32 06:32 WBC 7.19 RBC 3.44 L Hgb 10.6 L Hct 29.3 L MCV 85.2 MCH 30.8 MCHC 36.2 H RDW Std Deviation 51.8 H RDW Coeff of Elizabeth 16.8 H Plt Count 216 MPV 10.2 PT 13.5 H INR 1.3 H Sodium 131 L Potassium 4.1 Chloride 103 Carbon Dioxide 20 L Anion Gap 8 BUN 52 H Creatinine 2.39 H Est Cr Clr Drug Dosing 28.5 Est GFR ( Amer) 32.2 Est GFR (Non-Af Amer) 27.8 BUN/Creatinine Ratio 21.8 H Glucose 99 Calcium 8.2 L Magnesium 2.0 Total Bilirubin 2.1 H AST 22 ALT 16 Alkaline Phosphatase 102 Total Protein 5.8 L Albumin 2.3 L Globulin 3.5 Albumin/Globulin Ratio 0.[address] SCAN OF THE ABDOMEN AND PELVIS WITHOUT IV CONTRAST: Lung bases: The heart is normal in size and without pericardial effusion. The coronary arteries are densely calcified. The lung bases are clear noted bibasilar scar/atelectasis. Liver: The unenhanced liver is cirrhotic in morphology and heterogeneous attenuation. There is nodularity of the hepatic surface contour. There is no intrahepatic biliary ductal dilatation. There is recanalization of the periumbil ical vein. Gallbladder: There are calcified gallstones with no CT evidence of acute cholecystitis. Spleen: Normal in size and attenuation. Pancreas: The unenhanced pancreas is atrophic and grossly unremarkable. Adrenal glands: Unremarkable. Kidneys: The unenhanced kidneys demonstrate cortical atrophy and are without hydronephrosis. There are no renal calculi identified. There is no evidence of contour deforming renal mass lesion. Abdominal vasculature: The abdominal aorta is normal in course and caliber noting advanced atherosclerotic calcification. Bowel: There is moderate colonic diverticulosis without CT evidence of acute diverticulitis. No bowel obstruction is seen. Duodenal diverticula are noted. The appendix is well-visualized and normal. Peritoneum: There is a large volume of abdominopelvic ascites. No intraperitoneal free air is seen. Lymphadenopathy: None. Pelvic viscera: The bladder is normal as visualized. The prostate gland is diminutive and heterogeneous. There are bilateral fat-containing inguinal hernias. Skeletal structures: The skeletal structures are osteopenic. There is moderate to advanced lumbosacral spondylosis. No lytic or blastic lesions are seen. There is a subacute-appearing left lateral 10th rib fracture. There are additional chronic/healed right-sided rib fractures. IMPRESSION: 1. The liver is cirrhotic in morphology and heterogeneous in attenuation. 2. A large volume abdominopelvic ascites and recanalization of the periumbilical vein indicate portal hypertension. 3. Colonic diverticulosis without CT evidence of acute diverticulitis. 4. Subacute appearing left lateral 10th rib fracture. 5. Cholelithiasis. PG Care Time/CCT Total # of Minutes Spent Total Time Spent with Patient: Total time spent is greater than 50% in coordination of care (as documented) at patient's floor/unit and/or counseling patient: Coding Level of Care Code INP/OBS CONSULT LVL 5, 80 MIN Diagnoses SALIMA (acute kidney injury) N17.9 Alcoholic cirrhosis K70.30 Renal insufficiency N28.9 Ascites R18.8
[2022-10-26] MEDS: OCTREOTIDE ACETATE 100 MCG/ML VIAL SQ SCH ×2 (15:47→22:14)
[2022-10-26] MEDS: MIDODRINE HCL 2.5 MG TAB PO SCH (15:48)
[2022-10-26] MEDS: ALBUMIN 25% 100 mL 25 GM/100 ML VIAL IV SCH ×2 (17:44→23:04)
[2022-10-26] MEDS: MIRTAZAPINE TAB 15 MG TAB PO SCH (20:29)
--- NOTE | 2022-10-26 20:40 | Electrocardiogram Report ---
Test Reason : Blood Pressure : / mmHG Vent. Rate : 097 BPM Atrial Rate : 097 BPM P-R Int : 142 ms QRS Dur : 072 ms QT Int : 378 ms P-R-T Axes : 030 -21 011 degrees QTc Int : 480 ms Normal sinus rhythm Inferior infarct , age undetermined Possible Anterior infarct (cited on or before 10-AUG-2022) Abnormal ECG When compared with ECG of 12-SEP-2022 19:44, Inferior infarct is now Present Confirmed by Jacinto Contreras ([id number]) on 10/26/2022 8:39:29 PM Referred By: Confirmed By:Jacinto Contreras
[2022-10-26 23:10] LABS: Sodium Random Urine < 10 mmol/L
[2022-10-27] MEDS: ALBUMIN 25% 100 mL 25 GM/100 ML VIAL IV SCH ×2 (05:35→12:57)
[2022-10-27] MEDS: OCTREOTIDE ACETATE 100 MCG/ML VIAL SQ SCH ×3 (06:01→21:16)
[2022-10-27 06:46] LABS: Hematocrit (blood only) 23.8 % (40.1-51.0); Hemoglobin 8.6 g/dl (14.0-18.0); Mean Corpuscular Hemoglobin 30.6 pg (25.0-34.0); Mean Corpuscular Hgb Conc 36.1 g/dL (32.0-36.0); Mean Corpuscular Volume 84.7 fL (80.0-100.0); Mean Platelet Volume 9.9 fL (9.4-12.4); Platelet Count 164 K/uL (130-400); RDW Coefficient of Variation 16.7 % (11.5-14.5); RDW Standard Deviation 50.5 fL (36.4-46.3); Red Blood Count 2.81 M/uL (4.63-6.08); White Blood Count 5.49 K/ul (4.8-10.8)
[2022-10-27 07:07] LABS: Albumin Globulin Ratio 1.1 (0.9-2); Albumin Level 2.9 gm/dl (3.4-5.0); BUN Creatinine Ratio 22.2 (10-20); Bilirubin,Total 2.6 mg/dl (0.2-1.0); Calcium 8.4 mg/dl (8.5-10.1); Creatinine Clr Calc Pharmacy 31.6 ml/min; Est GFR (African American) 36.4 ml/min; Est GFR (Non-African American) 31.4 ml/min; Globulin 2.7 gm/dl (2.5-4.0); Potassium 4.5 mmol/L (3.5-5.1); Total Protein 5.6 gm/dl (6.0-8.3)
[2022-10-27] MEDS: PANTOprazole 40 MG TAB PO SCH (07:34)
[2022-10-27] MEDS: LACTULOSE SYRUP 20 GM/30 ML UDC PO SCH ×3 (07:34→21:16)
[2022-10-27] MEDS: POTASSIUM CHLORIDE CRTAB 20 MEQ TABCR PO SCH (07:34)
[2022-10-27] MEDS: MIDODRINE HCL 2.5 MG TAB PO SCH ×3 (07:34→16:29)
[2022-10-27 07:48] LABS: INR 1.4 (0.9-1.1)
--- NOTE | 2022-10-27 13:45 | Nephrology Progress Note ---
Date of Service October 27, 2022 Assessment & Plan (1) SALIMA (acute kidney injury): (2) Hyponatremia: (3) Ascites: (4) Alcoholic cirrhosis: Plan 62 yo M with PMHX of chronic alcohol abuse, alcohol induced cirrhosis, ascites admitted with generalized weakness, malaise, increased swelling of the lower legs and outpatient lab showing worsening renal function. Last paracentesis was 10/03/2022 He was admitted last month as well for similar symptoms and at that time had refused to stop drinking alcohol, and refused the recommendation of either inpatient or outpatient rehab for alcohol abuse. Had normal renal function until recently with baseline creatinine 0.8-9. Starting in September creatinine started to increase and during this admission creatinine peaked to 2.8 which slowly started to improve. Urinalysis and renal ultrasound was otherwise unremarkable. SALIMA could be hemodynamically mediated but certainly there is concern for hepatorenal syndrome with recent progressive worsening of renal function. He was started on triple therapy with albumin, octreotide and midodrine on 10/25/2022. --waiting on paracentesis, possibly tomorrow. Would continue on Albumin, Octreotide and midodrine for now. If renal function and electrolyte remain acceptable, spironolactone can be resumed. -- monitor intake and output. Will follow. Admission and Anticipated Discharge Date Admission Date: October 24, 2022 Josh Prince was seen and evaluated in his room this morning. Overall his frustrated as paracentesis was canceled for today however denies any significant discomfort. Renal function staying relatively stable with acceptable electrolyte, slight improvement in creatinine over last 2 days. Blood pressure relatively low but asymptomatic. Review of Systems Review of Systems: Detailed review of system was otherwise unremarkable. Physical Exam Constitutional: + ill appearing (Chronic); no acute distress Neck: trachea midline, no thyromegaly Respiratory: normal respiratory effort Auscultation: lungs clear to auscultation bilaterally Cardiovascular: Rate/Rhythm: regular rate Heart Sounds: normal S1 and normal S2 Extremities: + pedal edema Gastrointestinal (Abdomen): Inspection/Auscultation: + abdomen distended and normal bowel sounds Percussion/Palpation: abdomen soft, + ascites and + fluid wave; abdomen nontender, no guarding and abdomen not rigid Skin: no rashes, warm and dry Neurologic: Motor/Sensory: no tremor and no asterixis Psychiatric: Orientation: alert and oriented x 3 Results & Data ([facility]) Vital Signs (Past 12 Hours) Vital Signs Temp Pulse Pulse Resp BP BP Pulse Ox 10/27/22 10:53 36.4 C L 83 18 95/63 L 95 10/27/22 07:00 80 10/27/22 07:40 64 90/55 L 10/27/22 07:17 36.2 C L 87 18 82/55 L 97 10/27/22 05:50 88 101/71 10/27/22 05:30 88 89/54 L 10/27/22 04:20 36.7 C 85 20 104/67 96 O2 Del Method 10/27/22 10:53 Room Air 10/27/22 07:00 10/27/22 07:40 10/27/22 07:17 Room Air 10/27/22 05:50 10/27/22 05:30 10/27/22 04:20 Room Air PG Care Time/CCT Total # of Minutes Spent Total Time Spent with Patient: Total time spent is greater than 50% in coordination of care (as documented) at patient's floor/unit and/or counseling patient: Coding Level of Care Code 94735 SUB INP/OBS CARE 3/50MIN Diagnoses SALIMA (acute kidney injury) N17.9 Hyponatremia E87.1 Ascites R18.8 Alcoholic cirrhosis K70.30
--- NOTE | 2022-10-27 15:38 | Hospitalist Progress Note ---
Date of Service October 27, 2022 Assessment & Plan (1) Acute renal failure: Plan: -Patient has a history of liver cirrhosis -Admitted to the hospital on account of worsening ascites -On admission, Found to have a creatine of 2.8, it was 1.77 in September 2022 -Could be multifactorial, hepatorenal syndrome, intravascular fluid depletion. Has been on diuretics -he received 500 mL NSS bolus in the ED -Will Hold lasix and spironolactone for now, monitor intake and output -Will hold additional IV fluids at this time -Started on octreotide, albumin and midodrine by nephrology, appreciate recs -Will monitor AM renal function and electrolytes on CMP -Avoid nephrotoxic agents -Consult nephrology (2) Alcoholic cirrhosis: Plan: -AST and ALT are currently stable -Patient noted to have a large amount of abdominal ascites on CT -He gets frequent paracentesis -Have placed a GI consult to see if they would want a paracentesis and to further evaluate for the need of a TIPS procedure at this time -Hold lasix and spironolactone for now with his renal failure -Continue lactulose, -Paracentesis for thursday -Patient mostly non compliant with alcohol abstinence, not a candidate for transplant (3) Lactate blood increase: Plan: -Resolved -No signs of systemic infection, likely related to his cirrhosis and dehydration (4) Hypertension: Plan: -BPs have been soft with systolics in the 90's -Will continue to monitor after IV fluids and holding diuretics -Monitor on tele (5) Impaired fasting glucose: Plan: -A1c in September was 4.7, continue to monitor Plan continue hospitalization scd full code Admission and Anticipated Discharge Date Admission Date: October 24, 2022 Subjective patient seen and examined, wants to be discharged if no paracentesis today Review of Systems Review of Systems: All systems reviewed are negative, apart from the ones contained in the history. Physical Exam Physical Exam: The patient is awake, alert and oriented 3, chronically ill looking HEENT--PERRL, EOMI, mucous membranes and oropharynx mildly dry Neck--supple. No JVD. No bruits. Thyroid normal, trachea midline, no adenopathy. Heart--normal S1 and S2. No murmurs, rubs or gallops. Lungs--clear bilaterally, no respiratory distress, no accessory muscle use. Abdomen--distended Extremities--no cyanosis or clubbing. No edema. Dermatologic--normal skin turgor, normal color, no abnormal lymph nodes, no rash. Neurologic--cranial nerves II through XII grossly intact. Rheumatologic--normal range of motion. Psychiatric--normal affect. Results & Data Results & Data ([facility]) Vital Signs (Past 12 Hours) Vital Signs Temp Pulse Pulse Resp BP BP Pulse Ox 10/27/22 15:06 97.5 F L 66 20 103/71 97 10/27/22 10:53 97.5 F L 83 18 95/63 L 95 10/27/22 07:00 80 10/27/22 07:40 64 90/55 L 10/27/22 07:17 97.2 F L 87 18 82/55 L 97 10/27/22 05:50 88 101/71 10/27/22 05:30 88 89/54 L 10/27/22 04:20 98.1 F 85 20 104/67 96 O2 Del Method 10/27/22 15:06 Room Air 10/27/22 10:53 Room Air 10/27/22 07:00 10/27/22 07:40 10/27/22 07:17 Room Air 10/27/22 05:50 10/27/22 05:30 10/27/22 04:20 Room Air PG Care Time/CCT Total # of Minutes Spent Total Time Spent with Patient: Total time spent is greater than 50% in coordination of care (as documented) at patient's floor/unit and/or counseling patient: Coding Level of Care Code 46790 SUB INP/OBS CARE 2/35MIN Diagnoses Acute renal failure N17.9 Alcoholic cirrhosis K70.30 Lactate blood increase R79.89 Hypertension I10 Impaired fasting glucose R73.01 Time Spent (min) 35
[2022-10-27] MEDS: MIRTAZAPINE TAB 15 MG TAB PO SCH (21:16)
[2022-10-28] MEDS: OCTREOTIDE ACETATE 100 MCG/ML VIAL SQ SCH ×3 (06:00→22:53)
[2022-10-28 07:33] LABS: BUN Creatinine Ratio 21.5 (10-20); Calcium 8.7 mg/dl (8.5-10.1); Est GFR (African American) 41.2 ml/min; Est GFR (Non-African American) 35.6 ml/min; Potassium 4.7 mmol/L (3.5-5.1)
[2022-10-28] MEDS: PANTOprazole 40 MG TAB PO SCH (07:48)
[2022-10-28] MEDS: MIDODRINE HCL 2.5 MG TAB PO SCH ×3 (07:48→16:56)
[2022-10-28] MEDS: POTASSIUM CHLORIDE CRTAB 20 MEQ TABCR PO SCH (07:50)
[2022-10-28] MEDS: LACTULOSE SYRUP 20 GM/30 ML UDC PO SCH ×3 (07:51→22:52)
--- NOTE | 2022-10-28 12:58 | Nephrology Progress Note ---
Date of Service October 28, 2022 Assessment & Plan (1) SALIMA (acute kidney injury): (2) Hyponatremia: (3) Ascites: (4) Alcoholic cirrhosis: Plan 62 yo M with PMHX of chronic alcohol abuse, alcohol induced cirrhosis, ascites admitted with generalized weakness, malaise, increased swelling of the lower legs and outpatient lab showing worsening renal function. Last paracentesis was 10/03/2022 He was admitted last month as well for similar symptoms and at that time had refused to stop drinking alcohol, and refused the recommendation of either inpatient or outpatient rehab for alcohol abuse. Had normal renal function until recently with baseline creatinine 0.8-9. Starting in September creatinine started to increase and during this admission creatinine peaked to 2.8 which slowly started to improve. Urinalysis and renal ultrasound was otherwise unremarkable. SALIMA could be hemodynamically mediated but certainly there is concern for hepatorenal syndrome with recent progressive worsening of renal function. He was started on triple therapy with albumin, octreotide and midodrine on 10/25/2022. --Would continue on Albumin, Octreotide and midodrine for now. if discharge anticipated, would continue on midodrine on discharge, spironolactone can be resumed. -- monitor intake and output. Will follow. Admission and Anticipated Discharge Date Admission Date: October 24, 2022 Josh Prince was seen and evaluated in his room this morning. Overall his frustrated as paracentesis was canceled for yesterday, denies any significant discomfort. Re nal function staying relatively stable with acceptable electrolyte, slight improvement in creatinine over last 3 days. Blood pressure relatively low but asymptomatic. Review of Systems Review of Systems: Detailed review of system was otherwise unremarkable. Physical Exam Constitutional: + ill appearing (Chronic); no acute distress Respiratory: normal respiratory effort Auscultation: lungs clear to auscultation bilaterally Cardiovascular: Rate/Rhythm: regular rate Heart Sounds: normal S1 and normal S2 Extremities: + pedal edema Gastrointestinal (Abdomen): Inspection/Auscultation: + abdomen distended and normal bowel sounds Percussion/Palpation: abdomen soft, + ascites and + fluid wave; abdomen nontender, no guarding and abdomen not rigid Skin: no rashes, warm and dry Neurologic: Motor/Sensory: no tremor and no asterixis Psychiatric: Orientation: alert and oriented x 3 Results & Data ([facility]) Vital Signs (Past 12 Hours) Vital Signs Temp Pulse Pulse Resp BP Pulse Ox O2 Del Method 10/28/22 10:32 36.5 C 84 18 95/66 L 99 Room Air 10/28/22 09:00 Room Air 10/28/22 08:32 36.4 C L 102 H 18 111/72 97 Room Air 10/28/22 07:34 98 H 10/28/22 05:00 37.0 C 87 20 97/69 L 95 Room Air PG Care Time/CCT Total # of Minutes Spent Total Time Spent with Patient: Total time spent is greater than 50% in coordination of care (as documented) at patient's floor/unit and/or counseling patient: Coding Level of Care Code 92403 SUB INP/OBS CARE 3/50MIN Diagnoses SALIMA (acute kidney injury) N17.9 Hyponatremia E87.1 Ascites R18.8 Alcoholic cirrhosis K70.30
--- NOTE | 2022-10-28 14:39 | Hospitalist Progress Note ---
Date of Service October 28, 2022 Assessment & Plan (1) Acute renal failure: Plan: -Patient has a history of liver cirrhosis -Admitted to the hospital on account of worsening ascites -On admission, Found to have a creatine of 2.8, it was 1.77 in September 2022 -Could be multifactorial, hepatorenal syndrome, intravascular fluid depletion. Has been on diuretics -he received 500 mL NSS bolus in the ED -Will Hold lasix and spironolactone for now, monitor intake and output -Will hold additional IV fluids at this time -Started on octreotide, albumin and midodrine by nephrology, appreciate recs -Some improvement in renal function -Will monitor AM renal function and electrolytes on CMP -Avoid nephrotoxic agents -Consult nephrology (2) Alcoholic cirrhosis: Plan: -AST and ALT are currently stable -Patient noted to have a large amount of abdominal ascites on CT -He gets frequent paracentesis -Have placed a GI consult to see if they would want a paracentesis and to further evaluate for the need of a TIPS procedure at this time -Hold lasix and spironolactone for now with his renal failure -Continue lactulose, -Paracentesis for thursday -Patient mostly non compliant with alcohol abstinence, not a candidate for transplant (3) Lactate blood increase: Plan: -Resolved -No signs of systemic infection, likely related to his cirrhosis and dehydration (4) Hypertension: Plan: -BPs have been soft with systolics in the 90's -Will continue to monitor after IV fluids and holding diuretics -On midodrine -Monitor on tele (5) Impaired fasting glucose: Plan: -A1c in September was 4.7, continue to monitor Plan continue hospitalization, hopefully d/c tomorrow scd full code Admission and Anticipated Discharge Date Admission Date: October 24, 2022 Subjective patient seen and examined, threatened to go home if paracentesis is not done today Review of Systems Review of Systems: All systems reviewed are negative, apart from the ones contained in the history. Physical Exam Physical Exam: The patient is awake, alert and oriented 3, chronically ill looking HEENT--PERRL, EOMI, mucous membranes and oropharynx mildly dry Neck--supple. No JVD. No bruits. Thyroid normal, trachea midline, no adenopathy. Heart--normal S1 and S2. No murmurs, rubs or gallops. Lungs--clear bilaterally, no respiratory distress, no accessory muscle use. Abdomen--distended Extremities--no cyanosis or clubbing. No edema. Dermatologic--normal skin turgor, normal color, no abnormal lymph nodes, no rash. Neurologic--cranial nerves II through XII grossly intact. Rheumatologic--normal range of motion. Psychiatric--normal affect. Results & Data Results & Data ([facility]) Vital Signs (Past 12 Hours) Vital Signs Temp Pulse Pulse Resp BP Pulse Ox O2 Del Method 10/28/22 14:18 97.2 F L 80 16 107/74 98 Room Air 10/28/22 10:32 97.7 F 84 18 95/66 L 99 Room Air 10/28/22 09:00 Room Air 10/28/22 08:32 97.5 F L 102 H 18 111/72 97 Room Air 10/28/22 07:34 98 H 10/28/22 05:00 98.6 F 87 20 97/69 L 95 Room Air PG Care Time/CCT Total # of Minutes Spent Total Time Spent with Patient: Total time spent is greater than 50% in coordination of care (as documented) at patient's floor/unit and/or counseling patient: Coding Level of Care Code 09099 SUB INP/OBS CARE 2/35MIN Diagnoses Acute renal failure N17.9 Alcoholic cirrhosis K70.30 Lactate blood increase R79.89 Hypertension I10 Impaired fasting glucose R73.01 Time Spent (min) 35
--- NOTE | 2022-10-28 14:52 | Ultrasound Report ---
US paracentesis abd w/image CLINICAL HISTORY: 62 years-old Male with ascites. Recurrent ascites COMPARISON: CT abdomen and pelvis 10/24/2022 PROCEDURE: The procedure was explained to the patient in the care including the benefits and possible risks/complications. The patient gave verbal understanding and written consent was obtained. A time -out was performed prior to the start of the procedure. The patient was placed on the ultrasound table in the supine position. Using ultrasound guidance, an appropriate procedure site in the left lower abdomen was marked. This area was then prepped and drape d in the usual sterile fashion. Local anesthesia was achieved within 1% lidocaine. An 8-[place] is catheter was then inserted. Approximately 11.3 liters of clear, yellowish fluid was removed and 1 L was sent to the lab for analysis. The catheter was removed and external pressure was held to achieve hemostasis. A sterile dressing was applied to the procedure site. The patient tolerated the procedure well without immediate complicati ons. IMPRESSION: Successful ultrasound-guided paracentesis with removal of 11.3 L ascitic fluid ACT 112: Negative or not required by law. The above report was generated using voice recognition software. It may contain grammatical, syntax o r spelling errors. Electronically signed by: Virgil Hanley M.D. 10/28/2022 2:51 PM
[2022-10-28] MEDS ORDERED: GADOXETATE DISODIUM IV ONE (22:00)
[2022-10-28] MEDS: MIRTAZAPINE TAB 15 MG TAB PO SCH (22:52)
[2022-10-29] MEDS: OCTREOTIDE ACETATE 100 MCG/ML VIAL SQ SCH (05:45)
[2022-10-29] MEDS ORDERED: MIDODRINE HCL 10 MG TAB PO SCH (08:00)
[2022-10-29 08:28] LABS: Calcium 8.4 mg/dl (8.5-10.1); Potassium 4.6 mmol/L (3.5-5.1)
[2022-10-29 08:34] LABS: BUN Creatinine Ratio 19.5 (10-20); Creatinine Clr Calc Pharmacy 33.9 ml/min; Est GFR (African American) 43.9 ml/min; Est GFR (Non-African American) 37.9 ml/min
[2022-10-29] MEDS: LACTULOSE SYRUP 20 GM/30 ML UDC PO SCH (09:11)
[2022-10-29] MEDS: PANTOprazole 40 MG TAB PO SCH (09:11)
[2022-10-29] MEDS: POTASSIUM CHLORIDE CRTAB 20 MEQ TABCR PO SCH (09:11)
--- NOTE | 2022-10-29 11:08 | Discharge Summary ---
Date of Service October 29, 2022 Admission HPI Per Admitting Provider Suresh is a 62 year old male with a PMH significant for Alcoholic cirrhosis, HTN, hyperlipidemia, BPH, depression with suicidal ideations, and GERD who presented to the [facility] ED 0n 10/24/22 with complaints of worsening generalized weakness, abdominal discomfort, and confusion. In the ED the patient was found to be afebrile, soft blood pressures with systolics in the 90's, and stable on RA. Labs were remarkable for A WBC WNL, stable Hgb and platelets, INR of 1.3, cr of 2.83 (baseline appears to be around 1.0-1.2), BUN of 55, sodium of 131 (up from 128 as of 10/09), otherwise stable electrolytes, AG of 9 with a bicarb of 19, lactate of 2.4, total bili of 2.7 and alk phos of 121 otherwise stable liver enzymes, ammonia of 70, total ck of 19, albumin of 2.7, TSH of 4.8 with a free T4 WNL, Covid/Influenza/RSV negative. CT of the head and chest xray were read as no acute findings. CT of the abdomen/pelvis without IV contrast was read as "1. The liver is cirrhotic in morphology and heterogeneous in attenuation. 2. A large volume abdominopelvic ascites and recanalization of the periumbilical vein indicate portal hypertension. 3. Colonic diverticulosis without CT evidence of acute diverticulitis. 4. Subacute appearing left lateral 10th rib fracture. 5. Cholelithiasis.6. Additional findings as above.". Prior to admission the patient was given a 500 mL NSS bolus. At the time of the exam the patient was lying comfortably in bed in no acute distress with his sitting bedside, history was obtained from both. His states that over the past week the patient has been generally weak, needing to hold onto things in the home to support himself with ambulation. She states that he also has been having more abdominal distention over the past week. He denies recent fevers, chills, chest pain, SOB, cough, abdominal pain, nausea, vomiting, dysuria, hematuria, and recent falls. His states that he has been having a poor appetite, he has only been eating fruit and candy. The patient states that he has been feeling more weak in his BL LEs, he states that he does not like his current walker and would use a different one if needed. They follow with Dr. Mims, is scheduled to have a liver MRI on 10/28, and has an appointment next month with the new [employer] [facility] in [facility], Dr. Caceres. He did not take any of his medications yet today. He has been taking his lactulose as prescribed and has at least 3 loose BMs most days of the week. The patient is a Full Code, his would make decisions for him if he could not make them himseld. Please refer to Dr. Potter's attestation for any changes to the treatment plan Principal Diagnosis weakness, ascites Discharge Exam The patient is awake, alert and oriented 3, chronically ill looking HEENT--PERRL, EOMI, mucous membranes and oropharynx mildly dry Neck--supple. No JVD. No bruits. Thyroid normal, trachea midline, no adenopat hy. Heart--normal S1 and S2. No murmurs, rubs or gallops. Lungs--clear bilaterally, no respiratory distress, no accessory muscle use. Abdomen--distended Extremities--no cyanosis or clubbing. No edema. Dermatologic--normal skin turgor, normal color, no abnormal lymph nodes, no rash. Neurologic--cranial nerves II through XII grossly intact. Rheumatologic--normal range of motion. Psychiatric--normal affect. Discharge Data Allergies Allergy/AdvReac Type Severity Reaction Status Date / Time amlodipine [From [facility]] AdvReac Unknown PT UNAWARE Verified 10/24/22 15:26 OF THIS ALLERGY OR REACTION??? Consultations 10/24/22 15:57 ED Decision to Admit Stat 10/24/22 16:44 Consult Gastroenterology Routine 10/26/22 08:24 Consult Nephrology Routine Ordered Studies 10/24/22 11:09 CT head/brain wo con Stat 10/24/22 14:33 CT abd pelvis wo con Stat 10/28/22 06:00 US paracentesis abd w/image Routine 10/28/22 15:53 MRI Abdomen [MR abdomen wo/w con] Routine Hospital Course (1) Acute renal failure: -Patient has a history of liver cirrhosis -Admitted to the hospital on account of worsening ascites -On admission, Found to have a creatine of 2.8, it was 1.77 in September 2022 -Could be multifactorial, hepatorenal syndrome, intravascular fluid depletion. Has been on diuretics -he received 500 mL NSS bolus in the ED -Will Hold lasix and spironolactone for now, monitor intake and output -Started on octreotide, albumin and midodrine by nephrology, appreciate recs -Some improvement in renal function -Will monitor AM renal function and electrolytes on CMP -Avoid nephrotoxic agents -Consult nephrology (2) Alcoholic cirrhosis: -AST and ALT are currently stable -Patient noted to have a large amount of abdominal ascites on CT -He gets frequent paracentesis -Have placed a GI consult to see if they would want a paracentesis and to further evaluate for the need of a TIPS procedure at this time -Hold lasix and spironolactone for now with his renal failure -Continue lactulose, -he is s/p paracentesis with removal of 11.2L -Patient mostly non compliant with alcohol abstinence, not a candidate for transplant (3) Lactate blood increase: -Resolved -No signs of systemic infection, likely related to his cirrhosis and dehydration (4) Hypertension: -BPs have been soft with systolics in the 90's -Will continue to monitor after IV fluids and holding diuretics -On midodrine, increased to 10mg TID -Monitor on tele (5) Impaired fasting glucose: -A1c in September was 4.7, continue to monitor Plan patient wanted to be discharged scd full code Total Time Total Time Spent Total Time Spent (In Minutes): 35 Discharge Plan Discharge Items Patient Disposition: Home - Self-Care Reason For Visit: GENERALIZED WEAKNESS Discharge Diagnosis: Weakness, ascites Activity: Resume your previous activity Non-emergency contact: Primary Care Provider and Inspector Technician Call non-emergency contact if: you have any medication questions Follow-up/Referrals: Roge Childers MD [Primary Care Provider] - 11/05/22 11:00 am Diet: Low Sodium (2gm) Addtl Attending Provider Instructions: please make appointment to follow up with your GI doctor and PCP Pending Studies at Discharge: No Stand-Alone Forms: [employer], Smoking Cessation Medications and DC Order Prescriptions: New midodrine 10 mg Tablet 10 mg PO TID@0800,1200,1700 30 Days Qty: 30 0RF Continued spironolactone 25 mg tablet 50 mg PO QAM 30 Days Qty: 60 11RF potassium chloride [Klor-Con M20] 20 mEq tablet,ER particles/crystals 20 meq PO DAILY Qty: 30 2RF lactulose 20 gram/30 mL solution 20 g PO TID Qty: 8100 3RF mirtazapine 15 mg tablet 15 mg PO HS Qty: 90 3RF furosemide 20 mg tablet 20 mg PO DAILY Qty: 30 2RF pantoprazole 40 mg tablet,delayed release (DR/EC) 40 mg PO DAILY Qty: 30 2RF Discharge Orders: Discharge Order (Routine); Ordered 10/29/22 Ordered By: Bev Lanier Admission Data Admit Date/Time: 10/24/22 16:19 Attending Provider: Bev Lanier Admit Provider: Ronnie Potter Primary Care Provider: Roge Childers Other Providers: Ronnie Potter ; Cameron Alamo ; Paul Malik ; Marcela Ervin ; Venessa Fallon ; Margo Graves ; Samantha Yee ; Jacob Mims ; Junaid Vann ; Yo Osorio ; Ayah Santamaria ; Erickson Daniel ; Ramona Springer ; Ingrid Johnson ; Stella Carver ; Aline Simmons ; Norma Jones ; Jeremie Kay ; Brodie Bowie ; Abbey Caceres ; Kayla Barth Jr ; Sourav Jones Other Interventions: Discharge Summary Assessment (RN) Last Done: 10/29/22 10:02 Coding Level of Care Code HOSP INP/OBS DISCH >30 MIN Diagnoses Acute renal failure N17.9 Alcoholic cirrhosis K70.30 Lactate blood increase R79.89 Hypertension I10 Impaired fasting glucose R73.01 Time Spent (min) 35
--- NOTE | 2022-10-29 14:10 | Nephrology Progress Note ---
Date of Service October 29, 2022 Assessment & Plan (1) SALIMA (acute kidney injury): (2) Hyponatremia: (3) Ascites: (4) Alcoholic cirrhosis: Plan 62 yo M with PMHX of chronic alcohol abuse, alcohol induced cirrhosis, ascites admitted with generalized weakness, malaise, increased swelling of the lower legs and outpatient lab showing worsening renal function. Last paracentesis was 10/03/2022 He was admitted last month as well for similar symptoms and at that time had refused to stop drinking alcohol, and refused the recommendation of either inpatient or outpatient rehab for alcohol abuse. Had normal renal function until recently with baseline creatinine 0.8-9. Starting in September creatinine started to increase and during this admission creatinine peaked to 2.8 which slowly started to improve. Urinalysis and renal ultrasound was otherwise unremarkable. SALIMA could be hemodynamically mediated but certainly there is concern for hepatorenal syndrome with recent progressive worsening of renal function. He was started on triple therapy with albumin, octreotide and midodrine on 10/25/2022. --Would continue on midodrine on discharge, spironolactone can be resumed. --monitor intake and output. Admission and Anticipated Discharge Date Admission Date: October 24, 2022 Josh Prince was seen and evaluated in his room this morning. Had paracentesis yesterday, had 11 L removed. c/o some abdominal discomfort. Renal function staying relatively stable with acceptable electrolyte. Blood pressure relatively low but asymptomatic. Review of Systems Review of Systems: Detailed review of system was otherwise unremarkable. Physical Exam Constitutional: + ill appearing (Chronic); no acute distress Respiratory: normal respiratory effort Auscultation: lungs clear to auscultation bilaterally Cardiovascular: Rate/Rhythm: regular rate Heart Sounds: normal S1 and normal S2 Extremities: + pedal edema Gastrointestinal (Abdomen): Percussion/Palpation: abdomen soft; abdomen nontender Skin: no rashes, warm and dry Neurologic: Motor/Sensory: no tremor and no asterixis Psychiatric: Orientation: alert and oriented x 3 Results & Data ([facility]) Vital Signs (Past 12 Hours) Vital Signs Temp Pulse Resp BP BP Pulse Ox O2 Del Method 10/29/22 10:02 36.6 C 83 18 92/60 L 92/53 L 98 10/29/22 08:10 36.6 C 83 18 92/60 L 98 Room Air 10/29/22 04:21 36.5 C 77 92/53 L 95 Room Air PG Care Time/CCT Total # of Minutes Spent Total Time Spent with Patient: Total time spent is greater than 50% in coordination of care (as documented) at patient's floor/unit and/or counseling patient: Coding Level of Care Code 27758 SUB INP/OBS CARE 2/35MIN Diagnoses SALIMA (acute kidney injury) N17.9 Hyponatremia E87.1 Ascites R18.8 Alcoholic cirrhosis K70.30
--- NOTE | 2022-10-29 14:16 | Magnetic Resonance Report ---
MR abdomen wo/w con HISTORY: 62 years-old Male liver cirrhosis cirrhosis with abdominal pain and distention COMPARISON: CT abdomen and pelvis 10/24/2022 TECHNIQUE: Multiplanar multisequence MRI of the abdomen was obtained both with and without the use of 10 cc Eovist. FINDINGS: Motion degraded exam. The imaged lower chest is unremarkable. Moderate volume of abdominal and pelvic ascites. Cirrhotic morphology of the liver redemonstrated which is diffusely heterogeneous. No hepat ic mass identified. Recannulization of the umbilical vein. Visualized adrenal glands are unremarkable . Atrophic pancreas. Unremarkable spleen. No pancreatic ductal dilation. Cholelithiasis with mild gal lbladder distention. No gallbladder wall thickening, choledocholithiasis or biliary ductal dilation i dentified. No abdominal aortic aneurysm or lymphadenopathy. Unremarkable kidneys without hydronephrosis. Subcent imeter exophytic cyst of the inferior pole right kidney. There is no bowel obstruction or bowel wall thickening. Unremarkable soft tissues. Lateral left 10th rib fracture, better seen on the CT abdomen and pelvis study. IMPRESSION: 1. Motion degraded exam. 2. Cirrhotic liver with evidence of portal venous hypertension. 3. Moderate abdominal and pelvic ascites. 4. Cholelithiasis without evidence of acute cholecystitis, choledocholithiasis or biliary ductal dila tion. ACT 112: Negative or not required by law. The above report was generated using voice recognition software. It may contain grammatical, syntax o r spelling errors. Dictated: 10/29/2022 1:51 PM Transcribed: 10/29/2022 2:13 PM Aida [id number] MARYAN_Maurone Electronically signed by: Virgil Hanley M.D. 10/29/2022 2:15 PM
== END 2022-10-29 11:40 | disposition home or self-care (01) | DRG 442 ==
LOC: ED 10:56 → SUATTDRO 16:19 → 2N 16:19

== ENCOUNTER 2022-11-25 14:32 | Inpatient (IN) ==
--- NOTE | 2022-11-25 15:13 | Emergency Department Note ---
Impression & Plan Acute renal failure (ARF), Alcoholic cirrhosis, Acute hyperkalemia, Acute hyponatremia ED Provider Note NAME: ZEYNEP GUEVARA AGE: 62 SEX: M : 1960 ARRIVES VIA: Walk-In INFORMANT: Patient, ED PROVIDER(S): Emanuel Reyes MD CHIEF COMPLAINT: Outpatient referral, acute renal failure MEDICAL DECISION MAKING: Patient presents to the behest of his GI physician at [facility] due to concern for acute renal failure. The patient reportedly has a baseline creatinine of 1 today it was 3 and was referred here for evaluation. Blood work was obtained along with a COVID swab. The patient was noted to be hypotensive in triage 69/54 and a small fluid bolus was administered. The patient initially was unsure if he taken his midodrine as this was ordered but after further discussion the patient had taken his most recent dose this was held. The patient's blood work shows a normal white count is chronic and stable hemoglobin hemoglobin 10.8. Platelet count is unremarkable. INR of 1.3. The patient does have hyponatremia at 129 hyperkalemia at 5.2 and a creatinine of 3. Patient's most recent creatinine 1.8. Given that the patient is likely over diuresed. I did order urine electrolytes as well as serum and urine osmolality. I did speak with the inpatient hospitalist service Dr. Potter and the patient was admitted to the medicine service. Daily bilirubin today 2.3 which is relatively chronic and stable. Urinalysis shows ketones. Nursing had thought that the patient was hypoxemic and was placed on 2 L. A c hest x-ray was obtained. This is unremarkable. Patient is asymptomatic the oxygen was turned off and the patient did not require any oxygen supplementation. Prior /Outside records reviewed: I did review the patient's outpatient note from Dr. Caceres from earlier today. Differential diagnosis: Infection, dehydration, metabolic abnormality, hypo/hyperglycemia, electrolyte disturbance, anemia, hypoxia, cardiac sources, intracerebral event, toxicologic, neurologic, as well as other pathologies. Diagnostics, as interpreted by me: ECG: Normal sinus rhythm, rate of 89 normal intervals normal axis T wave inversion in lead III no ST elevations. Cardiac monitoring: An order was placed for continuous cardiac monitoring. The monitor shows a rate of 95 with sinus rhythm. Patient was placed on pulse oximetry Medical decision rules: None Imaging studies: See below HPI: Patient presents at the behest of his floor scraper due to concern for acute renal failure. The patient had followed up with Dr. Caceres as an outpatient with GI as the patient does have a known history of liver cirrhosis secondary to alcohol abuse. Patient last drank alcohol in July. This was a general follow-up after he had been discharged last month. The patient did have a paracentesis. 11 L removed at that time. The patient has been taking Lasix as well spironolactone but did not take the spironolactone today. Patient did have routine blood work completed in the follow-up. Patient denies any chest pain shortness of breath nausea vomiting or diarrhea. The patient denies any cough or fever. Patient has been compliant with his medications. Patient is accompanied by family number bedside PAST MEDICAL HISTORY: See Below PAST SURGICAL HISTORY: See Below SOCIAL HISTORY: See Below HOME MEDICATIONS: See Below ALLERGIES: See Below VITALS: See Below PHYSICAL EXAMINATION: GENERAL: Cachectic in appearance, wearing winter hat. EYE EXAM: Normal conjunctiva. PERRL, no anisocoria and EOM's grossly intact w/o pain. NECK: Supple, no nuchal rigidity, no adenopathy, non-tender. No signs of meningismus. FROM of the neck with good chin to chest and neck extension. No stridor. LUNGS: Clear to auscultation. Normal chest wall mechanics. HEART: NSR, no MRG. ABDOMEN: Abdomen soft, non-tender, normo-active bowel sounds, no masses, no rebound or guarding. BACK: No CVA TTP. SKIN: No rashes and no bruising. UPPER EXTREMITIES: Upper extremities are grossly normal. LOWER EXTREMITIES: Grossly normal, no edema. NEURO EXAM: A&O x3, cranial nerves II-XII grossly intact, normal speech, moves all 4 extremities. Past Med/Surg History Medical History Abdominal ascites Accelerated junctional rhythm Acute renal failure Alcohol abuse Alcoholic cirrhosis Alcoholic cirrhosis of liver Anemia Ascites Asthmatic bronchitis Blurred vision BPH (benign prostatic hyperplasia) Depression with anxiety Dermatitis Diarrhea Elevated LFTs Elevated liver enzymes Erectile dysfunction ETOH abuse Hyperlipidemia Hypertension Impaired fasting glucose Melena Noncompliance with medication regimen Portal hypertension Surgical History H/O esophagogastroduodenoscopy History of tonsillectomy and adenoidectomy Family History Father Heart disease Cardiomegaly Pacemaker Cardiac rhythm disorder or disturbance or change Mother Heart disease Pacemaker Social History Smoking Status: Never smoker Hx Alcohol Use: Yes Alcohol type: hard liquor Hx Substance Use: Yes Substance Use Type Other:: used last evening Preferred Language: Setswana Communication Ability: Effective Visual Impairment: No Limitations Restaurant Recruiter Required: No Beliefs That Will Affect Care: None marital status: marital status details: hx of Current Living Situation: Spouse current occupational status: previously employed 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 Home Meds Previous Rx's Medication Instructions Recorded furosemide 20 mg tablet 20 mg PO DAILY #30 tabs 08/19/22 spironolactone 25 mg tablet 50 mg PO QAM 30 days #60 tabs 09/17/22 potassium chloride 20 mEq 20 meq PO DAILY #30 tabs 09/22/22 tablet,extended release(part/cryst) (Klor-Con M) lactulose 20 gram/30 mL oral 20 g (30 mL) PO TID #8,100 mL 10/08/22 solution mirtazapine 15 mg tablet 15 mg PO HS #90 tabs 10/14/22 midodrine 10 mg tablet 10 mg PO TID@0800,1200,1700 30 11/12/22 days #90 tabs pantoprazole 40 mg tablet,delayed 40 mg PO DAILY #30 tabs 11/24/22 release Results & Data (ED) Vital Signs Vital Signs - 24 hr 11/25/22 15:00 11/25/22 15:18 11/25/22 16:21 Temperature 37.0 C Temperature Source Temporal Artery Scan Pulse Rate 99 H 81 Pulse Rate from SpO2 Sensor Respiratory Rate 21 Respiratory Effort / Characteristics Non-Labored Blood Pressure 69/54 L Blood Pressure Mean 59 Pulse Oximetry 98 Oxygen Delivery Method Room Air Room Air Oxygen Flow Rate Sepsis Recent Fever Within 48 Hours No Sepsis New/Unexplained Change in Mental Status N/A Sepsis Action Taken by Nursing No Action Required 11/25/22 15:37 11/25/22 15:37 11/25/22 16:00 Temperature Temperature Source Pulse Rate 85 Pulse Rate from SpO2 Sensor Respiratory Rate 10 L Respiratory Effort / Characteristics Blood Pressure 92/69 L 90/56 L Blood Pressure Mean 76 67 Pulse Oximetry 85 L Oxygen Delivery Method Room Air Oxygen Flow Rate Sepsis Recent Fever Within 48 Hours Sepsis New/Unexplained Change in Mental Status Sepsis Action Taken by Nursing 11/25/22 16:00 11/25/22 16:30 11/25/22 16:30 Temperature Temperature Source Pulse Rate 84 Pulse Rate from SpO2 Sensor 89 83 Respiratory Rate 19 23 Respiratory Effort / Characteristics Blood Pressure 102/75 Blood Pressure Mean 84 Pulse Oximetry 98 98 Oxygen Delivery Method Nasal Cannula Nasal Cannula Oxygen Flow Rate 2 2 Sepsis Recent Fever Within 48 Hours Sepsis New/Unexplained Change in Mental Status Sepsis Action Taken by Nursing 11/25/22 17:00 11/25/22 17:00 11/25/22 17:30 Temperature Temperature Source Pulse Rate Pulse Rate from SpO2 Sensor 83 Respiratory Rate 15 Respiratory Effort / Characteristics Blood Pressure 93/65 L 93/68 L Blood Pressure Mean 74 76 Pulse Oximetry 100 Oxygen Delivery Method Nasal Cannula Oxygen Flow Rate 1 Sepsis Recent Fever Within 48 Hours Sepsis New/Unexplained Change in Mental Status Sepsis Action Taken by Nursing 11/25/22 17:30 Temperature Temperature Source Pulse Rate 72 Pulse Rate from SpO2 Sensor 72 Respiratory Rate 11 L Respiratory Effort / Characteristics Blood Pressure Blood Pressure Mean Pulse Oximetry 100 Oxygen Delivery Method Oxygen Flow Rate Sepsis Recent Fever Within 48 Hours Sepsis New/Unexplained Change in Mental Status Sepsis Action Taken by Nursing Laboratory Data 11/25/22 15:35 11/25/22 15:35 Lab Results 11/25/22 11/25/22 11/25/22 Range/Units 15:35 15:35 15:35 WBC 6.88 (4.8-10.8) K/ul RBC 3.60 L (4.70-6.10) M/uL Hgb 10.8 L (14.0-18.0) g/dl Hct 30.9 L (42.0-52.0) % MCV 85.8 (80.0-100.0) fL MCH 30.0 (25.0-34.0) pg MCHC 35.0 (32.0-36.0) g/dL RDW Std Deviation 53.1 H (36.4-46.3) fL RDW Coeff of Elizabeth 17.1 H (11.5-14.5) % Plt Count 197 (130-400) K/uL MPV 9.8 (9.4-12.4) fL Immature Gran % (Auto) 0.3 % Neut % (Auto) 66.2 % Lymph % (Auto) 23.5 % Teton % (Auto) 8.4 % Eos % (Auto) 0.7 % Baso % (Auto) 0.9 % Neut # (Auto) 4.55 (1.40-6.50) K/uL Lymph # (Auto) 1.62 (1.2-3.4) K/uL Teton # (Auto) 0.58 (0.11-0.59) K/uL Eos # (Auto) 0.05 (0-0.50) K/uL Baso # (Auto) 0.06 (0-0.2) K/uL Immature Gran # (Auto) 0.02 (0.01-0.20) K/uL PT 13.5 H (9.0-12.0) Seconds INR 1.3 H (0.9-1.1) APTT 34.3 H (21.0-31.0) Seconds PTT Ratio 1.2 Sodium 129 L (136-145) mmol/L Potassium 5.2 H (3.5-5.1) mmol/L Chloride 102 (98-107) mmol/L Carbon Dioxide 19 L (21-32) mmol/L Anion Gap 8 (3-11) BUN 56 H (6-23) mg/dl Creatinine 3.05 H (0.6-1.4) mg/dl Est Cr Clr Drug Dosing 21.4 ml/min Est GFR ( Amer) 24.0 ml/min Est GFR (Non-Af Amer) 20.7 ml/min BUN/Creatinine Ratio 18.4 (10-20) Glucose 122 H (70-99(Fasting)) mg/dl Osmolality (280-300) mOsm/kg Calcium 9.3 (8.5-10.1) mg/dl Total Bilirubin 2.3 H (0.2-1.0) mg/dl AST 19 (13-39) U/L ALT 12 (7-52) U/L Alkaline Phosphatase 104 (34-104) U/L Total Protein 6.8 (6.0-8.3) gm/dl Albumin 2.7 L (3.4-5.0) gm/dl Globulin 4.1 H (2.5-4.0) gm/dl Albumin/Globulin Ratio 0.7 L (0.9-2) TSH (0.300-4.500) uIu/ml SARS-CoV-2, RNA, NAAT (NEGATIVE) 11/25/22 11/25/22 11/25/22 Range/Units 15:35 15:35 15:35 WBC (4.8-10.8) K/ul RBC (4.70-6.10) M/uL Hgb (14.0-18.0) g/dl Hct (42.0-52.0) % MCV (80.0-100.0) fL MCH (25.0-34.0) pg MCHC (32.0-36.0) g/dL RDW Std Deviation (36.4-46.3) fL RDW Coeff of Elizabeth (11.5-14.5) % Plt Count (130-400) K/uL MPV (9.4-12.4) fL Immature Gran % (Auto) % Neut % (Auto) % Lymph % (Auto) % Teton % (Auto) % Eos % (Auto) % Baso % (Auto) % Neut # (Auto) (1.40-6.50) K/uL Lymph # (Auto) (1.2-3.4) K/uL Teton # (Auto) (0.11-0.59) K/uL Eos # (Auto) (0-0.50) K/uL Baso # (Auto) (0-0.2) K/uL Immature Gran # (Auto) (0.01-0.20) K/uL PT (9.0-12.0) Seconds INR (0.9-1.1) APTT (21.0-31.0) Seconds PTT Ratio Sodium (136-145) mmol/L Potassium (3.5-5.1) mmol/L Chloride (98-107) mmol/L Carbon Dioxide (21-32) mmol/L Anion Gap (3-11) BUN (6-23) mg/dl Creatinine (0.6-1.4) mg/dl Est Cr Clr Drug Dosing ml/min Est GFR ( Amer) ml/min Est GFR (Non-Af Amer) ml/min BUN/Creatinine Ratio (10-20) Glucose (70-99(Fasting)) mg/dl Osmolality 298 (280-300) mOsm/kg Calcium (8.5-10.1) mg/dl Total Bilirubin (0.2-1.0) mg/dl AST (13-39) U/L ALT (7-52) U/L Alkaline Phosphatase (34-104) U/L Total Protein (6.0-8.3) gm/dl Albumin (3.4-5.0) gm/dl Globulin (2.5-4.0) gm/dl Albumin/Globulin Ratio (0.9-2) TSH 3.237 (0.300-4.500) uIu/ml SARS-CoV-2, RNA, NAAT NEGATIVE (NEGATIVE) Administered Medications Lactated Ringer's (Lr) 1,000 mls @ 80 mls/hr IV .[id number] JUSTINO Stop: 11/26/22 08:22 Last Infusion: 11/25/22 21:40 Dose: 80 mls/hr Documented By: Infusion: 11/25/22 20:55 Dose: 0 mls/hr Documented By: Admin: 11/25/22 20:17 Dose: 80 mls/hr Documented By: DM Lactulose (Lactulose Syrup 20 Gm/30 Ml Udc) 20 gm PO TID JUSTINO Stop: 12/25/22 20:59 Last Admin: 11/25/22 20:36 Dose: 20 gm Documented By: DM Mirtazapine (Mirtazapine Tab 15 Mg Tab) 15 mg PO HS JUSTINO Stop: 12/25/22 20:59 Last Admin: 11/25/22 20:36 Dose: 15 mg Documented By: DM Discontinued Medications Sodium Chloride (Nss 1000ml) 500 mls @ 999 mls/hr IV .Q31M ONE Stop: 11/25/22 15:49 Last Infusion: 11/25/22 16:50 Dose: 0 mls/hr Documented By: Admin: 02/14/23 16:15 Dose: 999 mls/hr Documented By: ANNI Albumin Human (Albumin 25%) 12.5 gm in 50 mls @ 50 mls/hr IV Q1H JUSTINO Stop: 11/25/22 23:14 Last Admin: 11/25/22 20:18 Dose: Not Given Documented By: MAR Midodrine (Midodrine Hcl 10 Mg Tab) 10 mg PO NOW STA Stop: 11/25/22 15:50 Last Admin: 11/25/22 16:26 Dose: Not Given Documented By: ANNI Imaging Data Radiologist's Impression: Chest X-Ray 11/25/22 15:18 XR chest 1V portable CLINICAL HISTORY: weakness COMPARISON STUDY: Chest CT August 10, 2022. Chest radiograph October 24, 2022. FINDINGS: Low lung volumes are unchanged. There is no pneumothorax or pleural effusion. Minimal left basilar opacity favors atelectasis. There is no consolidation to suggest pneumonia. Cardiomediastinal silhouette is stable. IMPRESSION: No acute cardiopulmonary findings. No change in appearance of the chest. ACT 112: Negative or not required by law. Electronically signed by: Walt Win M.D. 11/25/2022 4:23 PM Discharge Plan Visit Data Chief Complaint: Illness Stated Complaint: ACUTE RENAL FAILURE, REF BY DOC ED Provider: Emanuel Reyes Discharge Problem: Acute renal failure (ARF), Alcoholic cirrhosis, Acute hyperkalemia, Acute hy ponatremia Patient Disposition: Admitted As Inpatient Discharge Instructions Interventions: ED Discharge Assessment Last Done: 11/25/22 19:46
[2022-11-25] MEDS ORDERED: SODIUM CHLORIDE 0.9% 1000ML 500 ML IV ONE (15:19)
[2022-11-25] MEDS ORDERED: MIDODRINE HCL 10 MG TAB PO STA (15:49)
[2022-11-25 16:13] LABS: Basophils # (auto) 0.06 K/uL (0-0.2); Basophils % (auto) 0.9 %; Eosinophils # (auto) 0.05 K/uL (0-0.50); Eosinophils % (auto) 0.7 %; Hematocrit (blood only) 30.9 % (42.0-52.0); Hemoglobin 10.8 g/dl (14.0-18.0); Immature Granulocytes # (auto) 0.02 K/uL (0.01-0.20); Immature Granulocytes % (auto) 0.3 %; Lymphocytes # (auto) 1.62 K/uL (1.2-3.4); Lymphocytes % (auto) 23.5 %; Mean Corpuscular Volume 85.8 fL (80.0-100.0); Mean Platelet Volume 9.8 fL (9.4-12.4); Monocytes # (auto) 0.58 K/uL (0.11-0.59); Monocytes % (auto) 8.4 %; Neutrophils # (auto) 4.55 K/uL (1.40-6.50); Neutrophils % (auto) 66.2 %; Platelet Count 197 K/uL (130-400); RDW Coefficient of Variation 17.1 % (11.5-14.5); RDW Standard Deviation 53.1 fL (36.4-46.3); White Blood Count 6.88 K/ul (4.8-10.8)
--- NOTE | 2022-11-25 16:25 | XRay Report ---
XR chest 1V portable CLINICAL HISTORY: weakness COMPARISON STUDY: Chest CT August 10, 2022. Chest radiograph October 24, 2022. FINDINGS: Low lung volumes are unchanged. There is no pneumothorax or pleural effusion. Minimal left basilar opacity favors atelectasis. There is no consolidation to suggest pneumonia. Cardiomediastinal silhouette is stable. IMPRESSION: No acute cardiopulmonary findings. No change in appearance of the chest. ACT 112: Negative or not required by law. Electronically signed by: Walt Win M.D. 11/25/2022 4:23 PM
[2022-11-25 16:35] LABS: Albumin Globulin Ratio 0.7 (0.9-2); Albumin Level 2.7 gm/dl (3.4-5.0); BUN Creatinine Ratio 18.4 (10-20); Bilirubin,Total 2.3 mg/dl (0.2-1.0); Calcium 9.3 mg/dl (8.5-10.1); Creatinine Clr Calc Pharmacy 21.4 ml/min; Est GFR (Non-African American) 20.7 ml/min; Globulin 4.1 gm/dl (2.5-4.0); Potassium 5.2 mmol/L (3.5-5.1); Total Protein 6.8 gm/dl (6.0-8.3)
[2022-11-25 16:54] LABS: INR 1.3 (0.9-1.1); Partial Thromboplastin Ratio 1.2; Partial Thromboplastin Time 34.3 Seconds (21.0-31.0); Prothrombin Time 13.5 Seconds (9.0-12.0)
--- NOTE | 2022-11-25 17:35 | History & Physical Report ---
Date of Service November 25, 2022 Assessment & Plan (1) SALIMA (acute kidney injury): Plan: Patient appears intravascularly dry similar to last admission due to diuretics. Less likely infection related given lack of abdominal pain. US renal to assess for obstructive uropathy. Stop diuretics. Discussed with Dr Jaramillo on admission and will initially given gentle IV fluids (LR 1L @ 80ml/hr). If BP drops will add 1g/kg albumin IV and octreotide 100 mcg SQ q8h for hepatorenal syndrome. Consult nephrology (2) Alcoholic cirrhosis: Plan: Hold lasix and spironolactone as above Suspect he will need regular paracentesis with a lower or no diuretics on discharge. Consider paracentesis if significant ascites on US. Continue lactulose Plt 197, INR 1.3 Consult gastroenterology - inpatient referral for TIPS (3) Hypotension: Plan: Continue midodrine 10 mg 3 times daily (4) Hyponatremia: Plan: Suspect intra-arterial volume depletion secondary to diuretics. 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 The patient reports he is fatigued with decreased appetite and does not really want to be admitted. He denies any upper respiratory symptoms, urinary complaints, abdominal pain, melena, bright red blood in stool, hemoptysis, hematemesis, fever, chills, nausea or vomiting. He was admitted under very similar circumstances from October 24 to 2022 with acute renal failure. He was noted to be in acute renal failure intravascularly deplete and responded to stopping his diuretics. He also required 11 L paracentesis during that time. He was restarted just on spironolactone per nephrology night however was discharged on both furosemide and spironolactone with a new prescription of midodrine. In the ER he was noted to have a blood pressure of 69/54 which responded to 500 mL normal saline bolus and midodrine 10 mg p.o. Creatinine 3.05 from baseline 1.25 in September. He was referred to medicine for admission and ongoing management of acute kidney failure. Allergies Allergy/AdvReac Type Severity Reaction Status Date / Time amlodipine [From [facility]] AdvReac Unknown PT UNAWARE Verified 11/25/22 17:11 OF THIS ALLERGY OR REACTION??? Home Medications Medication Instructions Recorded Confirmed Type furosemide 20 mg tablet 20 mg PO DAILY #30 tabs 08/19/22 11/25/22 Rx spironolactone 25 mg tablet 50 mg PO QAM 30 days #60 tabs 09/17/22 11/25/22 Rx potassium chloride 20 mEq 20 meq PO DAILY #30 tabs 09/22/22 11/25/22 Rx tablet,extended release(part/cryst) (Klor-Con M) lactulose 20 gram/30 mL oral 20 g (30 mL) PO TID #8,100 mL 10/08/22 11/25/22 Rx solution mirtazapine 15 mg tablet 15 mg PO HS #90 tabs 10/14/22 11/25/22 Rx midodrine 10 mg tablet 10 mg PO TID@0800,1200,1700 30 11/12/22 11/25/22 Rx days #90 tabs pantoprazole 40 mg tablet,delayed 40 mg PO DAILY #30 tabs 11/24/22 11/25/22 Rx release Past Med/Surg History Medical History Abdominal ascites Accelerated junctional rhythm Acute renal failure Alcohol abuse Alcoholic cirrhosis Alcoholic cirrhosis of liver Anemia Ascites Asthmatic bronchitis Blurred vision BPH (benign prostatic hyperplasia) Depression with anxiety Dermatitis Diarrhea Elevated LFTs Elevated liver enzymes Erectile dysfunction ETOH abuse Hyperlipidemia Hypertension Impaired fasting glucose Melena Noncompliance with medication regimen Portal hypertension Surgical History H/O esophagogastroduodenoscopy History of tonsillectomy and adenoidectomy Family History Father Heart disease Cardiomegaly Pacemaker Cardiac rhythm disorder or disturbance or change Mother Heart disease Pacemaker Social History Smoking Status: Never smoker Hx Alcohol Use: Yes Alcohol type: hard liquor Hx Substance Use: Yes Substance Use Type Other:: used last evening Preferred Language: Slovenian Communication Ability: Effective Visual Impairment: No Limitations Certified Master Safecracker Required: No Beliefs That Will Affect Care: None marital status: marital status details: hx of Current Living Situation: Spouse current occupational status: previously employed 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 [employer] Feels Safe at Home: Yes Safety Concerns: Feels Safe At This Time Childhood Exposure to Second-Hand Smoke: No Assistive Devices: None Review of Systems Review of Systems: All systems reviewed & are unremarkable except as noted in HPI & below Physical Exam Constitutional: well developed; + not well nourished and no acute distress Eyes: + anicteric sclerae; normal pupil size Respiratory: normal respiratory effort, lungs clear to auscultation Cardiovascular: Rate/Rhythm: regular rate and regular rhythm Heart Sounds: no murmur Extremities: no pedal edema Gastrointestinal (Abdomen): Inspection/Auscultation: normal bowel sounds; abdomen not distended Percussion/Palpation: abdomen soft; abdomen nontender, no guarding and abdomen not rigid Musculoskeletal: no cyanosis or clubbing, extremities motor strength 5/5 Skin: no rashes, warm and dry Neurologic: moves all extremities and awake; no focal motor deficits and not confused Motor/Sensory: no tremor and no asterixis Psychiatric: A+Ox3, euthymic affect Genitourinary: no CVA tenderness Results & Data Results & Data ([facility]) Vital Signs (Past 12 Hours) Vital Signs Temp Pulse Resp BP Pulse Ox O2 Del Method O2 Flow Rate 11/25/22 17:00 15 100 Nasal Cannula 1 11/25/22 17:00 93/65 L 11/25/22 16:30 84 23 98 Nasal Cannula 2 11/25/22 16:30 102/75 11/25/22 16:00 19 98 Nasal Cannula 2 11/25/22 16:00 90/56 L 11/25/22 15:37 85 10 L 11/25/22 15:37 92/69 L 85 L Room Air 11/25/22 16:21 81 11/25/22 15:18 Room Air 11/25/22 15:00 37.0 C 99 H 21 69/54 L 98 Room Air Laboratory Results Abnormal lab results 11/25/22 11/25/22 11/25/22 Range/Units 15:35 15:35 15:35 RBC 3.60 L (4.70-6.10) M/uL Hgb 10.8 L (14.0-18.0) g/dl Hct 30.9 L (42.0-52.0) % RDW Std Deviation 53.1 H (36.4-46.3) fL RDW Coeff of Elizabeth 17.1 H (11.5-14.5) % PT 13.5 H (9.0-12.0) Seconds INR 1.3 H (0.9-1.1) APTT 34.3 H (21.0-31.0) Seconds Sodium 129 L (136-145) mmol/L Potassium 5.2 H (3.5-5.1) mmol/L Carbon Dioxide 19 L (21-32) mmol/L BUN 56 H (6-23) mg/dl Creatinine 3.05 H (0.6-1.4) mg/dl Glucose 122 H (70-99(Fasting)) mg/dl Total Bilirubin 2.3 H (0.2-1.0) mg/dl Albumin 2.7 L (3.4-5.0) gm/dl Globulin 4.1 H (2.5-4.0) gm/dl Albumin/Globulin Ratio 0.7 L (0.9-2) Urine Ketones (Negative) Urine Osmolality (500-800) mOsm/kg U Random Total Protein (0-11.9) mg/dl 11/25/22 11/25/22 11/25/22 Range/Units 18:50 18:50 18:50 RBC (4.70-6.10) M/uL Hgb (14.0-18.0) g/dl Hct (42.0-52.0) % RDW Std Deviation (36.4-46.3) fL RDW Coeff of Elizabeth (11.5-14.5) % PT (9.0-12.0) Seconds INR (0.9-1.1) APTT (21.0-31.0) Seconds Sodium (136-145) mmol/L Potassium (3.5-5.1) mmol/L Carbon Dioxide (21-32) mmol/L BUN (6-23) mg/dl Creatinine (0.6-1.4) mg/dl Glucose (70-99(Fasting)) mg/dl Total Bilirubin (0.2-1.0) mg/dl Albumin (3.4-5.0) gm/dl Globulin (2.5-4.0) gm/dl Albumin/Globulin Ratio (0.9-2) Urine Ketones Trace H (Negative) Urine Osmolality 418 L (500-800) mOsm/kg U Random Total Protein 16.5 H (0-11.9) mg/dl Diagnostic Findings XR chest 1V portable CLINICAL HISTORY: weakness COMPARISON STUDY: Chest CT August 10, 2022. Chest radiograph October 24, 2022. FINDINGS: Low lung volumes are unchanged. There is no pneumothorax or pleural effusion. Minimal left basilar opacity favors atelectasis. There is no consolidation to suggest pneumonia. Cardiomediastinal silhouette is stable. IMPRESSION: No acute cardiopulmonary findings. No change in appearance of the chest. Medications Administered ER medications given: Normal saline 500 mL bolus Midodrine 10 mg p.o. Code Status & VTE Plan Code Status Full PG Care Time/CCT Total # of Minutes Spent Total Time Spent with Patient: Total time spent is greater than 50% in coordination of care (as documented) at patient's floor/unit and/or counseling patient: Coding Level of Care Code 17732 INT INP/OBS CARE 375MIN Diagnoses SALIMA (acute kidney injury) N17.9 Alcoholic cirrhosis K70.30 Hypotension I95.9 Hyponatremia E87.1
[2022-11-25] MEDS ORDERED: ALBUMIN 25% 12.5 GM/50 ML VIAL IV SCH (18:15)
[2022-11-25] MEDS ORDERED: OCTREOTIDE ACETATE 100 MCG/ML VIAL SQ SCH (18:15)
[2022-11-25 19:03] LABS: Appearance Urine Clear (Clear); Bilirubin Urine Negative (Negative); Blood Urine Negative (Negative); Color Urine Dark Yellow; Glucose Urine UA Negative (Negative); Ketones Urine Trace (Negative); Leukocyte Esterase Urine Negative (Negative); Nitrite Urine Negative (Negative); Protein Urine Negative (Negative); Specific Gravity Urine 1.017 (1.000-1.030); Urobilinogen Urine Negative (Negative); pH Urine 5.5 (4.5-7.5)
[2022-11-25 19:15] LABS: Urine Chloride 18 mmol/L; Urine Potassium 52.5 mmol/L; Urine Sodium < 10 mmol/L
[2022-11-25 19:18] LABS: Total Protein Urine Random 16.5 mg/dl (0-11.9)
[2022-11-25 19:23] LABS: Creatinine Urine Random 163.5 mg/dl; Protein Creatinine Ratio Urine 0.1 (0-0.2)
[2022-11-25] MEDS ORDERED: LACTATED RINGER'S 1,000 ML IV SCH (19:53)
[2022-11-25] MEDS: MIRTAZAPINE TAB 15 MG TAB PO SCH (20:36)
[2022-11-25] MEDS: LACTULOSE SYRUP 20 GM/30 ML UDC PO SCH (20:36)
--- NOTE | 2022-11-26 05:12 | Electrocardiogram Report ---
Test Reason : Blood Pressure : / mmHG Vent. Rate : 089 BPM Atrial Rate : 089 BPM P-R Int : 142 ms QRS Dur : 072 ms QT Int : 384 ms P-R-T Axes : 045 -12 010 degrees QTc Int : 467 ms Normal sinus rhythm Anterior infarct (cited on or before 10-AUG-2022) Nonspecific T wave abnormality Abnormal ECG When compared with ECG of 24-OCT-2022 13:20, Nonspecific T wave abnormality now evident in Anterior leads Confirmed by Quirino Watts ([id number]) on 11/26/2022 5:12:38 AM Referred By: Abbey Caceres Confirmed By:Quirino Watts
--- NOTE | 2022-11-26 07:18 | Ultrasound Report ---
ULTRASOUND KIDNEYS AND BLADDER CLINICAL HISTORY: Acute renal insufficiency. COMPARISON STUDY: Abdominal CT dated 10/24/2022. TECHNIQUE: Real-time, grayscale, and color flow sonography of the kidneys and bladder is performed. I mages are reviewed in the transverse and longitudinal planes. FINDINGS: Kidneys: The kidneys demonstrate cortical atrophy. Echotexture is normal. The right kidney measures 1 0.1 cm in length and the left kidney measures 9.3 cm in length. There is no hydronephrosis. No shado wing renal calculi are identified. There is no sonographic evidence of contour deforming renal mass l esion. No perinephric fluid is identified. Bladder: The bladder is partially distended and grossly unremarkable. Ureteral jets were not seen. Abdomen: The liver is cirrhotic in morphology and heterogeneous in echotexture. There is a moderate v olume of abdominal ascites. IMPRESSION: 1. The kidneys demonstrate cortical atrophy and are without hydronephrosis. 2. The bladder is normal as visualized. 3. Cirrhosis and ascites. ACT 112: Negative or not required by law. Electronically signed by: Kareem Youngblood M.D. 11/26/2022 7:16 AM
--- NOTE | 2022-11-26 07:19 | Ultrasound Report ---
ULTRASOUND ASCITES CHECK CLINICAL HISTORY: Hepatic cirrhosis. COMPARISON STUDY: Abdominal CT dated 10/24/2022. FINDINGS: Real-time mayes scale sonography of all 4 quadrants of the abdomen is performed to evaluate abdominal ascites. The liver is cirrhotic in morphology. There is a moderate volume of abdominopelvic ascites. IMPRESSION: Moderate volume of abdominopelvic ascites. Electronically signed by: Kareem Youngblood M.D. 11/26/2022 7:17 AM
[2022-11-26] MEDS: PANTOprazole 40 MG TAB PO SCH (07:55)
[2022-11-26] MEDS: MIDODRINE HCL 10 MG TAB PO SCH ×3 (07:55→17:29)
[2022-11-26] MEDS: LACTULOSE SYRUP 20 GM/30 ML UDC PO SCH ×3 (07:55→19:51)
[2022-11-26 08:48] LABS: Basophils # (auto) 0.07 K/uL (0-0.2); Eosinophils # (auto) 0.16 K/uL (0-0.50); Eosinophils % (auto) 2.4 %; Hematocrit (blood only) 29.7 % (42.0-52.0); Hemoglobin 10.3 g/dl (14.0-18.0); Immature Granulocytes # (auto) 0.02 K/uL (0.01-0.20); Immature Granulocytes % (auto) 0.3 %; Lymphocytes # (auto) 1.85 K/uL (1.2-3.4); Lymphocytes % (auto) 27.4 %; Mean Corpuscular Hemoglobin 29.7 pg (25.0-34.0); Mean Corpuscular Hgb Conc 34.7 g/dL (32.0-36.0); Mean Corpuscular Volume 85.6 fL (80.0-100.0); Mean Platelet Volume 9.5 fL (9.4-12.4); Monocytes # (auto) 0.61 K/uL (0.11-0.59); Monocytes % (auto) 9.1 %; Neutrophils # (auto) 4.03 K/uL (1.40-6.50); Neutrophils % (auto) 59.8 %; Platelet Count 174 K/uL (130-400); RDW Coefficient of Variation 17.2 % (11.5-14.5); RDW Standard Deviation 53.1 fL (36.4-46.3); Red Blood Count 3.47 M/uL (4.70-6.10); White Blood Count 6.74 K/ul (4.8-10.8)
[2022-11-26 08:59] LABS: INR 1.2 (0.9-1.1); Prothrombin Time 12.4 Seconds (9.0-12.0)
[2022-11-26 09:18] LABS: Albumin Globulin Ratio 0.7 (0.9-2); Albumin Level 2.6 gm/dl (3.4-5.0); BUN Creatinine Ratio 18.6 (10-20); Bilirubin,Total 1.3 mg/dl (0.2-1.0); Calcium 8.8 mg/dl (8.5-10.1); Creatinine Clr Calc Pharmacy 24.9 ml/min; Est GFR (African American) 28.6 ml/min; Est GFR (Non-African American) 24.7 ml/min; Potassium 4.5 mmol/L (3.5-5.1); Total Protein 6.6 gm/dl (6.0-8.3)
[2022-11-26] MEDS ORDERED: SODIUM BICARBONATE 8.4% 150 MEQ in SODIUM CHLORIDE 0.45 % 1,000 ML IV SCH (09:30)
--- NOTE | 2022-11-26 10:03 | Nephrology Consultation ---
Date of Consultation November 26, 2022 Assessment & Plan (1) SALIMA (acute kidney injury): (2) Hyponatremia: (3) Hypotension: (4) Hyperkalemia: Plan 62 yo M with PMHX of chronic alcohol abuse, alcohol induced cirrhosis, ascites admitted with abnormal outpatient lab showing SALIMA and multiple electrolyte abnormality. On admission renal ultrasound and urinalysis otherwise unremarkable. Creatinine was 3.1 with last creatinine 1.7. Clinically he has been otherwise asymptomatic. Had normal renal function until recently with baseline creatinine 0.8-9 but starting in September creatinine started to increase. SALIMA most likely secondary to intravascular volume depletion. Has been getting IV fluids since admission renal function started to improve. Diuretics has been on hold, although he continues to have ascites however does not seem to be significant, no abdominal discomfort or respiratory distress. --change IV fluid to bicarb at 100 mL/hour --continue midodrine and albumin --accurate intake and output. Will follow. Thank you for allowing me to participate in your patient's care. It was a pleasure to see Suresh. History of Present Illness Reason for Consultation: SALIMA, metabolic acidosis, Hyponatremia. Attending Physician: Catia Solares DO History of Present Illness Mr. 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 Nephrology consult was requested for management of above. EMR records are reviewed in detail during patient's visit. Suresh was referred to ER after he was seen by his rubbing bed operator and outpatient Routine lab showed SALIMA. on admission creatinine was 2.4 with prior creatinine of 1.9 before discharge from hospital in October. Lab was also notable for acute hyperkalemia and hyponatremia. Urinalysis was negative for proteinuria, hematuria pyuria. Renal ultrasound showed otherwise normal kidney with some cortical thinning but no postrenal obstruction. abdominal ultrasound showed moderate ascites. He reports decent p.o. intake and urine output at home. Denied any worsening diarrhea, shortness of breath or abdominal discomfort. No recent fever or chills. Chest x-ray was unremarkable. Clinically he was felt to be volume depleted, blood pressure was low. Was given IV normal saline and LR. He was on Lasix and spironolactone which has been on hold. He Was initially admitted to hospital in September with worsening ascites and had 11 L of paracentesis done. Had mild SALIMA during that visit with creatinine 1.6 and since then renal function has been slowly worsening. He was again admitted to hospital from 10/24/2022 -10/29/22 with generalized weakness, confusion and ascites. During hospitalization had SALIMA, creatinine peaked to 2.8 which improved to 1 point 7 on discharge with prior normal renal function until September 2022 with baseline creatinine 0.8-0.9. During last hospitalization he received midodrine, albumin and octreotide and renal function improved. On discharge was continued on midodrine. Diuretics was on hold but Lasix 20 mg p.o. daily and spironolactone 50 mg daily was restarted during recent follow-up with Gastroenterology. Medical history is also notable for major depressive disorder. Overall he feels otherwise at his baseline and asymptomatic this morning. Allergies Allergy/AdvReac Type Severity Reaction Status Date / Time amlodipine [From [facility]] AdvReac Unknown PT UNAWARE Verified 11/25/22 17:11 OF THIS ALLERGY OR REACTION??? Home Medications Medication Instructions Recorded Confirmed Type furosemide 20 mg tablet 20 mg PO DAILY #30 tabs 08/19/22 11/25/22 Rx spironolactone 25 mg tablet 50 mg PO QAM 30 days #60 tabs 09/17/22 11/25/22 Rx potassium chloride 20 mEq 20 meq PO DAILY #30 tabs 09/22/22 11/25/22 Rx tablet,extended release(part/cryst) (Klor-Con M) lactulose 20 gram/30 mL oral 20 g (30 mL) PO TID #8,100 mL 10/08/22 11/25/22 Rx solution mirtazapine 15 mg tablet 15 mg PO HS #90 tabs 10/14/22 11/25/22 Rx midodrine 10 mg tablet 10 mg PO TID@0800,1200,1700 30 11/12/22 11/25/22 Rx days #90 tabs pantoprazole 40 mg tablet,delayed 40 mg PO DAILY #30 tabs 11/24/22 11/25/22 Rx release Patient History Medical History (Updated 11/26/22 @ 10:15 by Sarah Jaramillo MD) Abdominal ascites Accelerated junctional rhythm Acute renal failure Alcohol abuse Alcoholic cirrhosis Alcoholic cirrhosis of liver Anemia Ascites Asthmatic bronchitis Blurred vision BPH (benign prostatic hyperplasia) Depression with anxiety Dermatitis Diarrhea Elevated LFTs Elevated liver enzymes Erectile dysfunction ETOH abuse Hyperkalemia Hyperlipidemia Hypertension Impaired fasting glucose Melena Noncompliance with medication regimen Portal hypertension Surgical History H/O esophagogastroduodenoscopy History of tonsillectomy and adenoidectomy Family History Father Heart disease Cardiomegaly Pacemaker Cardiac rhythm disorder or disturbance or change Mother Heart disease Pacemaker Social History Smoking Status: Never smoker Hx Alcohol Use: Yes Alcohol type: hard liquor Hx Substance Use: Yes Substance Use Type Other:: used last evening Preferred Language: Cymraes Communication Ability: Effective Visual Impairment: No Limitations 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 Physical Exam Constitutional: WD/WN, vitals as above no acute distress Eyes: + anicteric sclerae Neck: normal visual inspection Respiratory: Auscultation: lungs clear to auscultation bilaterally Cardiovascular: RRR, no murmur, no edema Gastrointestinal (Abdomen): Inspection/Auscultation: + abdomen distended Percussion/Palpation: abdomen soft; abdomen nontender Musculoskeletal: Extremities: extremities normal to inspection Skin: no rashes Neurologic: no focal motor deficits Psychiatric: Orientation: alert and oriented x 3 Affect: euthymic affect Results & Data ([facility]) Vital Signs (Past 12 Hours) Vital Signs Temp Pulse Pulse Resp BP Pulse Ox O2 Del Method 11/26/22 08:10 36.2 C L 78 19 95/57 L 97 Room Air 11/26/22 03:06 36.4 C L 61 16 95/60 L 96 Room Air 11/25/22 23:52 68 11/25/22 23:43 36.4 C L 72 18 95/61 L 94 Room Air PG Care Time/CCT Total # of Minutes Spent Total Time Spent with Patient: Total time spent is greater than 50% in coordination of care (as documented) at patient's floor/unit and/or counseling patient: Coding Level of Care Code INP/OBS CONSULT LVL 5, 80 MIN Diagnoses SALIMA (acute kidney injury) N17.9 Hyponatremia E87.1 Hypotension I95.9 Hyperkalemia E87.5
--- NOTE | 2022-11-26 10:40 | Gastrointestinal Consultation ---
Date of Consultation November 26, 2022 Assessment & Plan (1) Alcoholic cirrhosis: -Diuretics on hold due to SALIMA. Agree with nephrology consultation. -While not a candidate at the moment for liver transplant given ongoing alcohol use, if he is unable to tolerate diuretic therapy he may need tertiary eval for a TIPS -Can offer therapeutic paracentesis, however patient declines today as he feels that his ascites is not as bad as it has been in the past. -Follow MELD labs -Continue Pantoprazole 40 mg daily -Continue Lactulose 20 gm TID and can consider adding Xifaxan 550 mg BID given previous reports of HE. Goal is for a minimum of 3 bowel movements daily. -2 gm NA restricted diet -Avoid NSAIDs, OK to use limited Tylenol up to 2,000 mg daily -Would advise alcohol cessation Supervising Physician Co-Signing Physician Notes Agree with ROSY Jones as above Abd: Soft, NT, ND, +BS Continue current therapy and supportive care History of Present Illness Attending Physician: Catia Solares, DO History of Present Illness Patient is a 62 yo male with alcoholic liver cirrhosis who was sent to the ED by Dr. Caceres from [facility] due to acute renal failure and elevated potassium on outpatient labs. He was recently evaluated by her due to his decompensating cirrhosis. He has had significant volume management issues and multiple hospitalizations due to acute renal failure and inability to tolerate sufficient doses of his diuretics. He notes fatigue, but denies other symptoms. MELD score 25 today. He had an abdominal US on admission that suggests a moderate amount of ascites. His last paracentesis was 10/28/22 and 11.3 L of ascitic fluid was removed. He is hypotensive with a BP of 95/57 today, though this is improved from the time of admission. Nephrology has been following throughout his multiple readmissions with assistance with diuretic management and his SALIMA. Concerns have been raised for HRS during previous admissions. He tells me he does not want to be hospitalized. EGD in August 2022 without varices. He notes he doesn't feel his abdomen is increasing in size, though US shows moderate amount of ascites. He takes Lactulose 20 g TID as he reportedly exhibited concern for hepatic encephalopathy. He is not on Xifaxan at this time. H/H 10.3/29.7. K 4.5 this AM. Creatinine 2.64. INR 1.2. Na 129. T bili 1.3. Allergies Allergy/AdvReac Type Severity Reaction Status Date / Time amlodipine [From [facility]] AdvReac Unknown PT UNAWARE Verified 11/25/22 17:11 OF THIS ALLERGY OR REACTION??? Home Medications Medication Instructions Recorded Confirmed Type furosemide 20 mg tablet 20 mg PO DAILY #30 tabs 08/19/22 11/25/22 Rx spironolactone 25 mg tablet 50 mg PO QAM 30 days #60 tabs 09/17/22 11/25/22 Rx potassium chloride 20 mEq 20 meq PO DAILY #30 tabs 09/22/22 11/25/22 Rx tablet,extended release(part/cryst) (Klor-Con M) lactulose 20 gram/30 mL oral 20 g (30 mL) PO TID #8,100 mL 10/08/22 11/25/22 Rx solution mirtazapine 15 mg tablet 15 mg PO HS #90 tabs 10/14/22 11/25/22 Rx midodrine 10 mg tablet 10 mg PO TID@0800,1200,1700 30 11/12/22 11/25/22 Rx days #90 tabs pantoprazole 40 mg tablet,delayed 40 mg PO DAILY #30 tabs 11/24/22 11/25/22 Rx release Patient History Medical History Abdominal ascites Accelerated junctional rhythm Acute renal failure Alcohol abuse Alcoholic cirrhosis Alcoholic cirrhosis of liver Anemia Ascites Asthmatic bronchitis Blurred vision BPH (benign prostatic hyperplasia) Depression with anxiety Dermatitis Diarrhea Elevated LFTs Elevated liver enzymes Erectile dysfunction ETOH abuse Hyperkalemia Hyperlipidemia Hypertension Impaired fasting glucose Melena Noncompliance with medication regimen Portal hypertension Surgical History H/O esophagogastroduodenoscopy History of tonsillectomy and adenoidectomy Family History Father Heart disease Cardiomegaly Pacemaker Cardiac rhythm disorder or disturbance or change Mother Heart disease Pacemaker Social History Smoking Status: Never smoker Hx Alcohol Use: Yes Alcohol type: hard liquor Hx Substance Use: Yes Substance Use Type Other:: used last evening Preferred Language: Macedonian Communication Ability: Effective Visual Impairment: No Limitations Form Layer Required: No Beliefs That Will Affect Care: None marital status: marital status details: hx of Current Living Situation: Spouse current occupational status: previously employed 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 [employer] Feels Safe at Home: Yes Safety Concerns: Feels Safe At This Time Childhood Exposure to Second-Hand Smoke: No Assistive Devices: None Review of Systems Constitutional: + fatigue; no fever and no chills Respiratory: no cough and no dyspnea Cardiovascular: no chest pain Gastrointestinal: no abdominal pain and no problem reported Physical Exam Constitutional: well developed Respiratory: normal respiratory effort Gastrointestinal (Abdomen): normal bowel sounds, soft, nontender, no hepatosplenomegaly Psychiatric: Orientation: alert and oriented x 3 Results & Data ([facility]) Vital Signs (Past 12 Hours) Vital Signs Temp Pulse Pulse Resp BP Pulse Ox O2 Del Method 11/26/22 08:10 36.2 C L 78 19 95/57 L 97 Room Air 11/26/22 03:06 36.4 C L 61 16 95/60 L 96 Room Air 11/25/22 23:52 68 11/25/22 23:43 36.4 C L 72 18 95/61 L 94 Room Air PG Care Time/CCT Total # of Minutes Spent Total Time Spent with Patient: Total time spent is greater than 50% in coordination of care (as documented) at patient's floor/unit and/or counseling patient: Coding Level of Care Code INP/OBS CONSULT LVL 4, 60 MIN Diagnoses Alcoholic cirrhosis K70.30
--- NOTE | 2022-11-26 14:02 | Hospitalist Progress Note ---
Date of Service November 26, 2022 Assessment & Plan (1) SALIMA (acute kidney injury): Plan: Patient appeared intravascularly dry similar to last admission, suspect due to diuretic use. Creatinine 3.05 -> 2.64 with IVF overnight into today. US renal to assess for obstructive uropathy -> no evidence of such but with atrophic kidneys. Diuretics held, continue fluids in form of bicarb 100cc/hr until this evening. Nephrology consulted and appreciate recommendations. (2) Alcoholic cirrhosis: Plan: Holding diuretics spironolactone and Lasix as above. Moderate ascites noted on Abd US 11/25. Serial exams to determine if/when patient needs paracentesis in the setting of IV fluids and holding diuretics. Plt 174, INR 1.2, T Bili 2.3->1.3 overnight. Consult Gastroenterology - not a candidate at the moment for liver transplant given ongoing alcohol use, so if he is unable to tolerate diuretic therapy he may need tertiary evaluation for a TIPS procedure. Continue Lactulose, and can also add rifaximin if needed for goal BMs at least 3/day. (3) Hypotension: Plan: BP 60s at one point on admission, improved with midodrine, IV fluids. BP 90s throughout today, asymptomatic. Continue midodrine and IV fluids. Nephrology consult as above. (4) Hyponatremia: Plan: Suspect cause is intra-arterial volume depletion secondary to diuretics. Na 129 today; repeat CMP tomorrow. (5) Anemia: Plan: Chronic, in the setting of CKD and cirrhosis. Baseline Hgb range 8-10. Hgb 10.3 without evidence of bleeding. (6) Hyperkalemia: Plan: K 5.2 on admission, down to 4.5 with IV fluids. Daily monitoring. Plan Defer DVT chemoprophylaxis at this time given may need [facility] and Anticipated Discharge Date Admission Date: November 25, 2022 Subjective Patient without complaints on my interview this afternoon. Denies abdominal pain, and feels his ascites in his abdomen is about the same size today as yesterday. Denies chest pain, SOB, headache. Alert, tired upset that I woke him from a nap but otherwise pleasant. Review of Systems Review of Systems: All systems reviewed & are unremarkable except as noted in Subjective Physical Exam Constitutional: WD/WN, vitals as above Eyes: + anicteric sclerae Neck: normal visual inspection Respiratory: Auscultation: lungs clear to auscultation bilaterally Cardiovascular: RRR, no murmur, no edema Gastrointestinal (Abdomen): Inspection/Auscultation: + abdomen distended Percussion/Palpation: abdomen soft; abdomen nontender Skin: no rashes Neurologic: no focal motor deficits no tremors Psychiatric: Orientation: alert and oriented x 3 Affect: euthymic affect Results & Data Results & Data ([facility]) Vital Signs (Past 12 Hours) Vital Signs Temp Pulse Resp BP BP Pulse Ox O2 Del Method 11/26/22 11:55 36.7 C 83 19 92/66 L 97 Room Air 11/26/22 08:10 36.2 C L 78 19 95/57 L 97 Room Air 11/26/22 03:06 36.4 C L 61 16 95/60 L 96 Room Air PG Care Time/CCT Total # of Minutes Spent Total Time Spent with Patient: Total time spent is greater than 50% in coordination of care (as documented) at patient's floor/unit and/or counseling patient: Coding Level of Care Code 42319 SUB INP/OBS CARE 3/50MIN Diagnoses SALIMA (acute kidney injury) N17.9 Alcoholic cirrhosis K70.30 Hypotension I95.9 Hyponatremia E87.1 Anemia D64.9 Hyperkalemia E87.5
[2022-11-26] MEDS: MIRTAZAPINE TAB 15 MG TAB PO SCH (19:50)
[2022-11-26] MEDS: SODIUM BICARBONATE 8.4% 150 MEQ in DEXTROSE 5% 1,000 ML IV SCH (20:55)
[2022-11-27 06:30] LABS: Basophils # (auto) 0.05 K/uL (0-0.2); Basophils % (auto) 0.9 %; Eosinophils # (auto) 0.14 K/uL (0-0.50); Eosinophils % (auto) 2.6 %; Hematocrit (blood only) 24.5 % (42.0-52.0); Hemoglobin 9.3 g/dl (14.0-18.0); Immature Granulocytes # (auto) 0.01 K/uL (0.01-0.20); Immature Granulocytes % (auto) 0.2 %; Lymphocytes # (auto) 1.77 K/uL (1.2-3.4); Lymphocytes % (auto) 32.4 %; Mean Corpuscular Hemoglobin 31.4 pg (25.0-34.0); Mean Corpuscular Volume 82.8 fL (80.0-100.0); Mean Platelet Volume 9.6 fL (9.4-12.4); Monocytes # (auto) 0.66 K/uL (0.11-0.59); Monocytes % (auto) 12.1 %; Neutrophils # (auto) 2.83 K/uL (1.40-6.50); Neutrophils % (auto) 51.8 %; Platelet Count 147 K/uL (130-400); RDW Coefficient of Variation 16.7 % (11.5-14.5); RDW Standard Deviation 49.5 fL (36.4-46.3); Red Blood Count 2.96 M/uL (4.70-6.10); White Blood Count 5.46 K/ul (4.8-10.8)
[2022-11-27 06:46] LABS: Albumin Globulin Ratio 0.6 (0.9-2); BUN Creatinine Ratio 18.8 (10-20); Bilirubin,Total 1.4 mg/dl (0.2-1.0); Calcium 8.1 mg/dl (8.5-10.1); Creatinine Clr Calc Pharmacy 29.2 ml/min; Est GFR (African American) 33.1 ml/min; Est GFR (Non-African American) 28.5 ml/min; Globulin 3.4 gm/dl (2.5-4.0); Total Protein 5.4 gm/dl (6.0-8.3)
[2022-11-27 06:54] LABS: INR 1.3 (0.9-1.1); Prothrombin Time 13.5 Seconds (9.0-12.0)
[2022-11-27] MEDS ORDERED: SODIUM CHLORIDE 0.9% 1000ML 1,000 ML IV SCH ×2 (07:45→20:45)
[2022-11-27] MEDS: ALBUMIN 25% 100 mL 25 GM/100 ML VIAL IV SCH ×2 (07:58→23:23)
[2022-11-27] MEDS: PANTOprazole 40 MG TAB PO SCH (08:03)
[2022-11-27] MEDS: MIDODRINE HCL 10 MG TAB PO SCH ×3 (08:03→16:16)
[2022-11-27] MEDS: LACTULOSE SYRUP 20 GM/30 ML UDC PO SCH ×3 (08:04→21:25)
[2022-11-27] MEDS: SODIUM BICARBONATE 8.4% 150 MEQ in DEXTROSE 5% 1,000 ML IV SCH (08:07)
[2022-11-27] MEDS ORDERED: HEPARIN SOD 5,000 UNIT/0.5 ML VIAL SQ SCH (09:00)
--- NOTE | 2022-11-27 11:22 | Hospitalist Progress Note ---
Date of Service November 27, 2022 Assessment & Plan (1) Hypotension: Plan: BP 60s at one point on admission, improved with midodrine, IV fluids. However with some episodes of BP high 70s this afternoon, asymptomatic. Continue midodrine and IV fluids, also receive 250cc bolus x2 on 11/27. Also continue albumin infusion. Lactate 2.2, no evidence of infection on abdominal US, WBC normal, abdomen benign save for moderate stable ascites from admission. If BP dropping into 60s overnight, likely transfer to ICU for pressure support. Patient, overnight physician, ICU provider aware. (2) SALIMA (acute kidney injury): Plan: Patient appeared intravascularly dry similar to last admission, suspect due to diuretic use. Creatinine 3.05 -> 2.34 with IVF overnight into today. US renal to assess for obstructive uropathy -> no evidence of such but with atrophic kidneys. Diuretics held. Receiving NSS at 80cc/hr, see #1. Nephrology consulted and appreciate recommendations. (3) Alcoholic cirrhosis: Plan: Holding diuretics spironolactone and Lasix as above. Moderate ascites noted on Abd US 11/25. Serial exams to determine if/when patient needs paracentesis in the setting of IV fluids and holding diuretics. Plt 174, INR 1.2, T Bili 2.3->1.3 overnight. Consult Gastroenterology - not a candidate at the moment for liver transplant given ongoing alcohol use, so if he is unable to tolerate diuretic therapy he may need tertiary evaluation for a TIPS procedure. [facility] does not do inpatient TIPS. [facility] has 3 day wait on transfers. Will call other tertiary facilities as we stabilize patient for #1 and #2. Continue Lactulose, and can also add rifaximin if needed for goal BMs at least 3/day. (4) Hyponatremia: Plan: Suspect cause is intra-arterial volume depletion secondary to diuretics. Na 129 -> 132. (5) Anemia: Plan: Chronic, in the setting of CKD and cirrhosis. Baseline Hgb range 8-10. Hgb 10.3 without evidence of bleeding. (6) Hyperkalemia: Plan: K 5.2 on admission, down to 4.5 with IV fluids. Daily monitoring. Admission and Anticipated Discharge Date Admission Date: November 25, 2022 Subjective Today had several events: Around 8am had episode of symptomatic bradycardia while having a bowel movement. Prompt resolution with return to bed and lying flat. Also noted to have low BP Review of Systems Review of Systems: All systems reviewed & are unremarkable except as noted in Subjective Physical Exam Constitutional: WD/WN, vitals as above Respiratory: normal respiratory effort, lungs clear to auscultation Cardiovascular: RRR, no murmur, no edema Gastrointestinal (Abdomen): bowel sounds normal, abdomen soft, distended Skin: no rashes, warm and dry Psychiatric: A+Ox3, euthymic affect Results & Data Results & Data ([facility]) Vital Signs (Past 12 Hours) Vital Signs Temp Pulse Pulse Resp BP BP Pulse Ox 11/27/22 11:02 36.8 C 78 16 132/90 92 11/27/22 09:53 87 11/27/22 09:00 109/73 11/27/22 08:00 36.6 C 98 H 18 78/56 L 79/54 L 97 11/27/22 02:21 36.8 C 72 16 82/52 L 96 O2 Del Method 11/27/22 11:02 Room Air 11/27/22 09:53 11/27/22 09:00 11/27/22 08:00 Room Air 11/27/22 02:21 Room Air PG Care Time/CCT Total # of Minutes Spent Total Time Spent with Patient: Total time spent is greater than 50% in coordination of care (as documented) at patient's floor/unit and/or counseling patient: Coding Level of Care Code 18221 SUB INP/OBS CARE 3/50MIN Diagnoses Hypotension I95.9 SALIMA (acute kidney injury) N17.9 Alcoholic cirrhosis K70.30 Hyponatremia E87.1 Anemia D64.9 Hyperkalemia E87.5
--- NOTE | 2022-11-27 11:26 | Nephrology Progress Note ---
Date of Service November 27, 2022 Assessment & Plan (1) SALIMA (acute kidney injury): (2) Hyponatremia: (3) Hypotension: (4) Hyperkalemia: Plan 62 yo M with PMHX of chronic alcohol abuse, alcohol induced cirrhosis, ascites admitted with abnormal outpatient lab showing SALIMA and multiple electrolyte abnormality. On admission renal ultrasound and urinalysis otherwise unremarkable. Creatinine was 3.1 with last creatinine 1.7. Clinically he has been otherwise asymptomatic. Had normal renal function until recently with baseline creatinine 0.8-9 but starting in September creatinine started to increase. 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 SALIMA most likely secondary to intravascular volume depletion. Has been getting IV fluids since admission renal function started to improve. Diuretics has been on hold, although he continues to have ascites however does not seem to be significant, no abdominal discomfort or respiratory distress. --change IV fluid to NS at 80 mL/hour --continue midodrine and albumin --accurate intake and output. --waiting on evaluation and possible transfer to a tertiary care facility for TIPS. Will follow. Admission and Anticipated Discharge Date Admission Date: November 25, 2022 Josh Prince was seen and evaluated in his room this morning, with Sarah at bedside. he had an episode of significant hypotension this morning with blood pressure dropping to 70s and was feeling dizzy and lightheaded but blood pressure slowly improved and overall started to feel better. Appetite remains poor. Denies abdominal discomfort, shortness of breath, nausea or vomiting. Renal function and electrolyte improving. Decent urine output. Review of Systems Review of Systems: detailed review of system was otherwise unremarkable except mentioned above. Physical Exam Constitutional: + ill appearing (Chronic); no acute distress Respiratory: normal respiratory effort Auscultation: lungs clear to auscultation bilaterally Cardiovascular: RRR, no murmur, no edema Gastrointestinal (Abdomen): Percussion/Palpation: abdomen soft and + ascites; abdomen nontender, no guarding and abdomen not rigid Skin: no rashes, warm and dry Neurologic: Motor/Sensory: no tremor and no asterixis Psychiatric: Orientation: alert and oriented x 3 Results & Data ([facility]) Vital Signs (Past 12 Hours) Vital Signs Temp Pulse Pulse Resp BP BP Pulse Ox 11/27/22 11:02 36.8 C 78 16 132/90 92 11/27/22 09:53 87 11/27/22 09:00 109/73 11/27/22 08:00 36.6 C 98 H 18 78/56 L 79/54 L 97 11/27/22 02:21 36.8 C 72 16 82/52 L 96 O2 Del Method 11/27/22 11:02 Room Air 11/27/22 09:53 11/27/22 09:00 11/27/22 08:00 Room Air 11/27/22 02:21 Room Air PG Care Time/CCT Total # of Minutes Spent Total Time Spent with Patient: Total time spent is greater than 50% in coordination of care (as documented) at patient's floor/unit and/or counseling patient: Coding Level of Care Code 96698 SUB INP/OBS CARE 3/50MIN Diagnoses SALIMA (acute kidney injury) N17.9 Hyponatremia E87.1 Hypotension I95.9 Hyperkalemia E87.5
--- NOTE | 2022-11-27 13:56 | Cardiology Consultation ---
Date of Consultation November 27, 2022 Assessment & Plan (1) Syncope: Plan 1. Syncope: Patient witnessed episode of syncope earlier today. The episode itself was characterized by a sensation of dizziness after having a bowel movement. Patient did notice a mild tachycardia forceful heart beating immediately prior to passing out. Apparently he had a 2nd bowel movement with some recurrence of his symptoms. Since the episode the patient has felt somewhat fatigued and tired. Evaluation of his telemetry reveals an episode consistent with a cardioinhibitory response. I think the episode was vagally mediated. Baseline conduction is normal. No similar symptoms in the past. Think this was circumstantial. At baseline he has an element of mild hypotension and possibly volume depletion. This would put him at a higher risk of syncope associated with these events. Treatment will simply be supportive. Maintaining good hydration and recognizing the prodrome so that abortive action can be taken he is the mainstay of treatment. 2. Murmur: I think an echocardiogram is indicated both for the murmur as well as his history heavy alcohol abuse. History of Present Illness Reason for Consultation: Syncope, bradycardia Requesting Physician: Beck Attending Physician: Catia Solares, DO History of Present Illness The patient is a 62-year-old gentleman without a known history of cardiac disease who has been experiencing complications associated with liver cirrhosis and alcohol abuse. Was admitted to the hospital this time for evidence of acute renal injury. This was noted on outpatient testing. Patient had been admitted for similar problems in the past. He is known to have an element of baseline hypotension. At home he appears to be very sedentary and did not endorse performing significant exercise or activity. He could not give any specific reason, but does appear to have an element of fatigue. He has a poor appetite and had not been eating much. He is fairly frequent bowel movements due to use of lactulose. According to the patient and his who was present for today's interview he had been ambulating back from the bathroom after a bowel movement this morning when he began to feel somewhat dizzy and lightheaded. He noticed a rapid and forceful pounding in his chest before becoming significantly dizzy and losing consciousness. The patient's symptoms abated somewhat but were re-initiated by a 2nd bowel movement on a bedpan. Patient regained consciousness and since that time has not felt well and continues to endorse symptoms of fatigue. He cannot recall other episodes of syncope. In the past he has had some dizziness and lightheadedness. He is known to have low blood pressures and was recently started on mid drain for that problem. There was some concern that he was dehydrated at the time of admission in diuretics have been stopped. He continues to eat very little. Allergies Allergy/AdvReac Type Severity Reaction Status Date / Time amlodipine [From [facility]] AdvReac Unknown PT UNAWARE Verified 11/25/22 17:11 OF THIS ALLERGY OR REACTION??? Home Medications Medication Instructions Recorded Confirmed Type furosemide 20 mg tablet 20 mg PO DAILY #30 tabs 08/19/22 11/25/22 Rx spironolactone 25 mg tablet 50 mg PO QAM 30 days #60 tabs 09/17/22 11/25/22 Rx potassium chloride 20 mEq 20 meq PO DAILY #30 tabs 09/22/22 11/25/22 Rx tablet,extended release(part/cryst) (Klor-Con M) lactulose 20 gram/30 mL oral 20 g (30 mL) PO TID #8,100 mL 10/08/22 11/25/22 Rx solution mirtazapine 15 mg tablet 15 mg PO HS #90 tabs 10/14/22 11/25/22 Rx midodrine 10 mg tablet 10 mg PO TID@0800,1200,1700 30 11/12/22 11/25/22 Rx days #90 tabs pantoprazole 40 mg tablet,delayed 40 mg PO DAILY #30 tabs 11/24/22 11/25/22 Rx release Patient History Medical History (Updated 11/27/22 @ 13:53 by Roge Epps MD) Abdominal ascites Accelerated junctional rhythm Acute renal failure Alcohol abuse Alcoholic cirrhosis Alcoholic cirrhosis of liver Anemia Ascites Asthmatic bronchitis Blurred vision BPH (benign prostatic hyperplasia) Depression with anxiety Dermatitis Diarrhea Elevated LFTs Elevated liver enzymes Erectile dysfunction ETOH abuse Hyperkalemia Hyperlipidemia Hypertension Impaired fasting glucose Melena Noncompliance with medication regimen Portal hypertension Surgical History H/O esophagogastroduodenoscopy History of tonsillectomy and adenoidectomy Family History Father Heart disease Cardiomegaly Pacemaker Cardiac rhythm disorder or disturbance or change Mother Heart disease Pacemaker Social History Smoking Status: Never smoker Hx Alcohol Use: Yes Alcohol type: hard liquor Hx Substance Use: Yes Substance Use Type Other:: used last evening Preferred Language: [place] Communication Ability: Effective Visual Impairment: No Limitations Clinical Quality Assurance Associate Required: No Beliefs That Will Affect Care: None marital status: marital status details: hx of Current Living Situation: Spouse current occupational status: previously employed 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 Poor appetite. No abdominal discomfort. No increasing abdominal girth. No lower extremity edema. Physical Exam Physical Exam: The patient is somnolent but easily arousable. He was oriented x3. Cachectic. HEENT: Pupils are equal and reactive to light and accommodation. Extraocular movements are intact. Neuro: Cranial nerves intact Lungs: Clear to auscultation bilaterally. He has good air movement without use of accessory muscles. No rales wheezes or rhonchi. Cardiac: Heart demonstrates a regular rate and rhythm. Normal S1 and S2. Holosystolic murmur Pulses: The patient has palpable radial pulses bilaterally that are equal in intensity abdomen: Soft and nontender Extremities: There was no evidence of hypoperfusion. There is no cyanosis or clubbing. There is no edema. Skin: I did not appreciate any rashes on examination today. Results & Data ([facility]) Vital Signs (Past 12 Hours) Vital Signs Temp Pulse Pulse Resp BP BP Pulse Ox 11/27/22 11:02 36.8 C 78 16 132/90 92 11/27/22 09:53 87 11/27/22 09:00 109/73 11/27/22 08:00 36.6 C 98 H 18 78/56 L 79/54 L 97 11/27/22 02:21 36.8 C 72 16 82/52 L 96 O2 Del Method 11/27/22 11:02 Room Air 11/27/22 09:53 11/27/22 09:00 11/27/22 08:00 Room Air 11/27/22 02:21 Room Air Laboratory Results Abnormal Lab Results 11/27/22 11/27/2211/27/23 05:51 05:51 05:51 WBC 5.46 RBC 2.96 L Hgb 9.3 L Hct 24.5 L MCV 82.8 MCH 31.4 MCHC 38.0 H RDW Std Deviation 49.5 H RDW Coeff of Elizabeth 16.7 H Plt Count 147 MPV 9.6 Immature Gran % (Auto) 0.2 Neut % (Auto) 51.8 Lymph % (Auto) 32.4 Cochran % (Auto) 12.1 Eos % (Auto) 2.6 Baso % (Auto) 0.9 Neut # (Auto) 2.83 Lymph # (Auto) 1.77 Cochran # (Auto) 0.66 H Eos # (Auto) 0.14 Baso # (Auto) 0.05 Immature Gran # (Auto) 0.01 PT 13.5 H INR 1.3 H Sodium 133 L Potassium 4.0 Chloride 102 Carbon Dioxide 24 Anion Gap 7 BUN 44 H Creatinine 2.34 H D Est Cr Clr Drug Dosing 29.2 Est GFR ( Amer) 33.1 Est GFR (Non-Af Amer) 28.5 BUN/Creatinine Ratio 18.8 Glucose 116 H Calcium 8.1 L Total Bilirubin 1.4 H AST 19 ALT 9 Alkaline Phosphatase 91 Total Protein 5.4 L Albumin 2.0 L Globulin 3.4 Albumin/Globulin Ratio 0.6 L PG Care Time/CCT Total # of Minutes Spent Total Time Spent with Patient: Total time spent is greater than 50% in coordination of care (as documented) at patient's floor/unit and/or counseling patient: Coding Level of Care Code INP/OBS CONSULT LVL 4, 60 MIN Diagnoses Syncope R55
--- NOTE | 2022-11-27 14:37 | Electrocardiogram Report ---
Test Reason : Blood Pressure : / mmHG Vent. Rate : 108 BPM Atrial Rate : 108 BPM P-R Int : 176 ms QRS Dur : 124 ms QT Int : 390 ms P-R-T Axes : 036 -19 007 degrees QTc Int : 522 ms Sinus tachycardia When compared with ECG of 25-NOV-2022 15:33, Criteria for Anterior infarct are no longer Present QT has lengthened Confirmed by Roge Epps ([id number]) on 11/27/2022 2:37:00 PM Referred By: Abbey Caceres Confirmed By:Fede Epps
[2022-11-27] MEDS ORDERED: SODIUM CHLORIDE 0.9% 1000ML 1,000 ML IV ONE (16:18)
[2022-11-27] MEDS ORDERED: SODIUM CHLORIDE 0.9% 1000ML 250 ML IV ONE (16:27)
--- NOTE | 2022-11-27 16:32 | XCELERA ---
[id number]
[2022-11-27 22:04] LABS: BUN Creatinine Ratio 16.7 (10-20); Calcium 8.2 mg/dl (8.5-10.1); Creatinine Clr Calc Pharmacy 26.4 ml/min; Est GFR (African American) 29.4 ml/min; Est GFR (Non-African American) 25.4 ml/min; Potassium 3.8 mmol/L (3.5-5.1)
[2022-11-27] MEDS ORDERED: ALBUMIN 25% 100 mL 25 GM/100 ML VIAL IV ONE (22:44)
[2022-11-28] MEDS: ALBUMIN 25% 100 mL 25 GM/100 ML VIAL IV SCH ×2 (00:38→07:24)
[2022-11-28] MEDS ORDERED: CAPSAICIN CR 0.075% 60 GM TUBE EXT PRN (03:31)
[2022-11-28] MEDS ORDERED: FAMOTIDINE 20 MG TAB PO ONE (03:44)
[2022-11-28 06:29] LABS: Hematocrit (blood only) 20.6 % (42.0-52.0); Hemoglobin 7.5 g/dl (14.0-18.0); Mean Corpuscular Hgb Conc 36.4 g/dL (32.0-36.0); Mean Corpuscular Volume 85.1 fL (80.0-100.0); Platelet Count 122 K/uL (130-400); RDW Coefficient of Variation 17.2 % (11.5-14.5); RDW Standard Deviation 52.1 fL (36.4-46.3); Red Blood Count 2.42 M/uL (4.70-6.10); White Blood Count 6.01 K/ul (4.8-10.8)
[2022-11-28 06:41] LABS: Albumin Globulin Ratio 1.2 (0.9-2); Albumin Level 2.9 gm/dl (3.4-5.0); BUN Creatinine Ratio 15.9 (10-20); Bilirubin,Total 2.2 mg/dl (0.2-1.0); Calcium 8.4 mg/dl (8.5-10.1); Creatinine Clr Calc Pharmacy 25.3 ml/min; Est GFR (African American) 27.8 ml/min; Globulin 2.5 gm/dl (2.5-4.0); Magnesium 1.7 mg/dl (1.7-2.4); Potassium 3.9 mmol/L (3.5-5.1); Total Protein 5.4 gm/dl (6.0-8.3)
[2022-11-28 07:06] LABS: Basophils # (auto) 0.03 K/uL (0-0.2); Basophils % (auto) 0.5 %; Echinocytes 1+; Eosinophils # (auto) 0.07 K/uL (0-0.50); Eosinophils % (auto) 1.2 %; Immature Granulocytes # (auto) 0.03 K/uL (0.01-0.20); Immature Granulocytes % (auto) 0.5 %; Monocytes % (auto) 8.3 %; Neutrophils # (auto) 3.88 K/uL (1.40-6.50); Neutrophils % (auto) 64.5 %; Target Cells 1+
[2022-11-28] MEDS: MIDODRINE HCL 10 MG TAB PO SCH (07:27)
--- NOTE | 2022-11-28 09:07 | Hospitalist Progress Note ---
Date of Service November 28, 2022 Assessment & Plan (1) Goals of care, counseling/discussion: Plan: 11/28 patient had acute worsening in TBili, creatinine, hypotension despite interventions as outlined below. Family meeting late this AM with patient, his Sarah, and her sister about concerns regarding prognosis and next steps. Unfortunately not a TIPS or transplant candidate due to nutritional status, worsening MELD scores, worsening clinical presentation. Palliative Care Katy Lerma consulted. After family meeting with palliative care and family, patient elected to change code status to DNR/SNI and pursue comfort care. Comfort orders placed and patient given zofran and (2) Hypotension: Plan: Patient was on IVF with ambumin, midodrine increased to 15mg TID, and given octreotide today, still unfortunately with significant hypotension to 60s systolic with code purple today for syncopal event. Lactate 2.2 -> 3.0, no evidence of infection on abdominal US, WBC normal, abdomen benign save for moderate stable ascites from admission. OVEN STRIPPER as above. (3) SALIMA (acute kidney injury): Plan: On admission patient appeared intravascularly dry similar to last admission, suspect due to diuretic use. Creatinine 3.05 -> 2.3 -> 2.82 with multisystem failure. US renal to assess for obstructive uropathy -> no evidence of such but with atrophic kidneys. Nephrology consulted and appreciate recommendations this admission. (4) Alcoholic cirrhosis: Plan: Holding diuretics spironolactone and Lasix as above. Moderate ascites noted on Abd US 11/25. T Bili up to 2.4 today, LFTs stable. Case discussed with patient's [facility] Chief Environmental Commitment Officer: due to MELD 23 today, inna pereyra would not be a candidate for TIPS. Given illness and debility at this time would also not be a candidate for liver transplant. OVEN STRIPPER as above. (5) Hyponatremia: Plan: Suspect cause is intra-arterial volume depletion secondary to diuretics. Na 129 -> 136 with IVF. (6) Anemia: Plan: Chronic, in the setting of CKD and cirrhosis. Baseline Hgb range 8-10. Hgb 7.7 on 11/28 without evidence of active bleeding. Suspect due to hemodilution from IV fluids. (7) Hyperkalemia: Plan: K 5.2 on admission, improved initially with IV fluids. Diet as desired by patient. Admission and Anticipated Discharge Date Admission Date: November 25, 2022 Subjective Code purple called at 11AM for syncopal event. Patient alert, tired affect on my arrival. Given NSS bolus 1L and albumin infusion. Placed in Trendelenburg with improvement in BP to 70s and improvement in patient's symptoms. called and asked to present to bedside. Patient reported being scared and asked for instructional media services technician today. Denies trouble breathing but endorses intermittent chest and abdominal discomfort. Review of Systems Review of Systems: All systems reviewed & are unremarkable except as noted in Subjective Physical Exam Constitutional: WD/WN, vitals as above diaphoretic, anxious Respiratory: normal respiratory effort, lungs clear to auscultation Cardiovascular: RRR, no murmur, no edema Gastrointestinal (Abdomen): bowel sounds normal, abdomen soft, distended Skin: no rashes, warm and dry Psychiatric: Orientation: alert, oriented to person and oriented to place Affect: + depressed affect Results & Data Results & Data ([facility]) Vital Signs (Past 12 Hours) Vital Signs Temp Pulse Pulse Resp BP BP Pulse Ox 11/28/22 07:26 36.9 C 72 20 77/52 L 93 11/28/22 04:29 78 83/45 L 11/28/22 03:32 70 74/47 L 11/28/22 02:22 37.1 C 62 18 83/56 L 92 11/28/22 01:55 75 60/39 L 11/28/22 01:16 61 64/36 L 11/28/22 00:31 73/46 L 11/28/22 00:21 67 66/40 L 11/27/22 22:58 70 11/27/22 22:57 37.0 C 80 18 65/45 L 92 O2 Del Method 11/28/22 07:26 Room Air 11/28/22 04:29 11/28/22 03:32 11/28/22 02:22 Room Air 11/28/22 01:55 11/28/22 01:16 11/28/22 00:31 11/28/22 00:21 11/27/22 22:58 11/27/22 22:57 Room Air PG Care Time/CCT Total # of Minutes Spent Total Time Spent with Patient: Total time spent is greater than 50% in coordination of care (as documented) at patient's floor/unit and/or counseling patient: Prolonged Care Time Prolonged Care Time: Yes Code Fuentes called at 11:00AM. I reported to bedside at that time, and was present at bed until 11:30am. I again was in patient's room from 12:15 to 12:45 during family meeting with patient, , and Dr. Lerma Coding Level of Care Code 87628 SUB INP/OBS CARE 3/50MIN Diagnoses Goals of care, counseling/discussion Z71.89 Hypotension I95.9 SALIMA (acute kidney injury) N17.9 Alcoholic cirrhosis K70.30 Hyponatremia E87.1 Anemia D64.9 Hyperkalemia E87.5 Additional Codes Prolonged Care Time - Prolonged Care Time: Yes ([id number])
[2022-11-28] MEDS: PANTOprazole 40 MG TAB PO SCH (09:40)
[2022-11-28] MEDS: LACTULOSE SYRUP 20 GM/30 ML UDC PO SCH (09:41)
[2022-11-28] MEDS ORDERED: OCTREOTIDE ACETATE 100 MCG/ML VIAL SQ SCH (10:00)
--- NOTE | 2022-11-28 10:27 | Nephrology Progress Note ---
Date of Service November 28, 2022 Assessment & Plan (1) SALIMA (acute kidney injury): (2) Hyponatremia: (3) Hypotension: (4) Hyperkalemia: Plan 62 yo M with PMHX of chronic alcohol abuse, alcohol induced cirrhosis, ascites admitted with abnormal outpatient lab showing SALIMA and multiple electrolyte abnormality. On admission renal ultrasound and urinalysis otherwise unremarkable. Creatinine was 3.1 with last creatinine 1.7. Clinically he has been otherwise asymptomatic. Had normal renal function until recently with baseline creatinine 0.8-9 but starting in September creatinine started to increase. 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 SALIMA in the setting of advanced liver disease, persistent hypotension and intravascular volume depletion Has been getting IV fluids since admission, renal function initially slightly improved but again has been worsening. Diuretics has been on hold, although he continues to have ascites, no abdominal discomfort or respiratory distress. --continue NS at 80 mL/hour -- start on octreotide,continue midodrine and albumin --accurate intake and output. --waiting on evaluation and possible transfer to a tertiary care facility for TIPS. -- overall prognosis remains guarded as his not a liver transplant candidate at this time with MELD score 25 Will follow. Admission and Anticipated Discharge Date Admission Date: November 25, 2022 Subjective Suresh was seen and evaluated in his room this morning. Overall feels poorly and complain of difficulty sleeping at night. Continues to be significantly hypotensive with systolic brought blood pressure dropping in to 60s. Appetite remains poor. ascites has been slowly worsening although denies any significant discomfort or respiratory distress. Renal function again has been worsening with persistent hypotension. Decent urine output. Review of Systems Review of Systems: detailed review of system was otherwise unremarkable except mentioned above. Physical Exam Constitutional: + ill appearing (Chronic); no acute distress Respiratory: normal respiratory effort Auscultation: lungs clear to auscultation bilaterally Cardiovascular: RRR, no murmur, no edema Gastrointestinal (Abdomen): Percussion/Palpation: abdomen soft and + ascites; abdomen nontender, no guarding and abdomen not rigid Skin: no rashes, warm and dry Neurologic: no focal motor deficits Motor/Sensory: no tremor Psychiatric: Orientation: alert and oriented x 3 Results & Data ([facility]) Vital Signs (Past 12 Hours) Vital Signs Temp Pulse Pulse Resp BP BP Pulse Ox 11/28/22 09:48 88/60 L 11/28/22 07:26 36.9 C 72 20 77/52 L 93 11/28/22 04:29 78 83/45 L 11/28/22 03:32 70 74/47 L 11/28/22 02:22 37.1 C 62 18 83/56 L 92 11/28/22 01:55 75 60/39 L 11/28/22 01:16 61 64/36 L 11/28/22 00:31 73/46 L 11/28/22 00:21 67 66/40 L 11/27/22 22:58 70 11/27/22 22:57 37.0 C 80 18 65/45 L 92 O2 Del Method 11/28/22 09:48 11/28/22 07:26 Room Air 11/28/22 04:29 11/28/22 03:32 11/28/22 02:22 Room Air 11/28/22 01:55 11/28/22 01:16 11/28/22 00:31 11/28/22 00:21 11/27/22 22:58 11/27/22 22:57 Room Air PG Care Time/CCT Total # of Minutes Spent Total Time Spent with Patient: Total time spent is greater than 50% in coordination of care (as documented) at patient's floor/unit and/or counseling patient: Coding Level of Care Code 83104 SUB INP/OBS CARE 3/50MIN Diagnoses SALIMA (acute kidney injury) N17.9 Hyponatremia E87.1 Hypotension I95.9 Hyperkalemia E87.5
--- NOTE | 2022-11-28 10:30 | Communication Note ---
Date of Service: November 28, 2022 Was asked by hospitalist service to re-evaluate this patient. Patient has been discussed with attending physician at length. At that time of arrival to the patient's floor, the patient experienced hypotension and a code purple was called. Patient was reportedly unresponsive while a CXR was being obtained. He was not responding to staff speaking to him, though he was breathing and had a pulse. Systolic pressure in the 60s. Patient is an alcoholic cirrhotic who was referred to hepatology for further management of his liver disease. He was referred for admission due to his SALIMA. From a liver standpoint, his INR is stable. There was hospitalist concern given his T bili is 2.2, though this is not a good measure of acuity of liver disease. MELD score is 23. He is unable to tolerate diuretics for volume management and is being seen by nephrology. He is on Midodrine. He denies abdominal pain or new symptoms. He has refused paracentesis during this admission when GI offered it. No exam findings concerning for SB, though if patient were to exhibit concerns for infection/sepsis, could consider empiric treatment for SBP. Hgb 7.5. Baseline between 8-10. No evidence of GI bleeding at this time. Last EGD in August without varices. Creatinine 2.7 today. At this venture, beyond what is expressed above, we do not have anything to acutely offer this patient from a GI perspective and his MELD has improved throughout the stay. He will need ongoing outpatient evaluation with hepatology as they can determine if he is a TIPS candidate. If he worsens, would consider transfer, but overall, his MELD is better than earlier in this admission. Nephrology is following due to SALIMA. He is unable to tolerate diuretics and he will need to strictly adhere to a sodium restricted diet and should consider the paracentesis for ascites management--if patient becomes agreeable to this. If nephrology feels that HRS is likely, then that would be an indication to transfer patient as well.
[2022-11-28] MEDS ORDERED: SODIUM CHLORIDE 0.9% 1000ML 1,000 ML IV ONE (11:32)
[2022-11-28 11:38] LABS: Basophils # (auto) 0.05 K/uL (0-0.2); Basophils % (auto) 0.6 %; Eosinophils # (auto) 0.11 K/uL (0-0.50); Eosinophils % (auto) 1.4 %; Hematocrit (blood only) 21.6 % (42.0-52.0); Hemoglobin 7.7 g/dl (14.0-18.0); Immature Granulocytes # (auto) 0.01 K/uL (0.01-0.20); Immature Granulocytes % (auto) 0.1 %; Lymphocytes % (auto) 35.1 %; Mean Corpuscular Hgb Conc 35.6 g/dL (32.0-36.0); Monocytes # (auto) 0.74 K/uL (0.11-0.59); Monocytes % (auto) 9.3 %; Neutrophils # (auto) 4.27 K/uL (1.40-6.50); Neutrophils % (auto) 53.5 %; Platelet Count 143 K/uL (130-400); RDW Coefficient of Variation 17.4 % (11.5-14.5); RDW Standard Deviation 52.7 fL (36.4-46.3); Red Blood Count 2.57 M/uL (4.70-6.10); White Blood Count 7.98 K/ul (4.8-10.8)
[2022-11-28 11:52] LABS: Albumin Globulin Ratio 1.4 (0.9-2); Albumin Level 3.4 gm/dl (3.4-5.0); BUN Creatinine Ratio 15.2 (10-20); Bilirubin,Total 2.4 mg/dl (0.2-1.0); Calcium 8.8 mg/dl (8.5-10.1); Creatinine Clr Calc Pharmacy 24.2 ml/min; Est GFR (African American) 26.4 ml/min; Est GFR (Non-African American) 22.8 ml/min; Globulin 2.4 gm/dl (2.5-4.0); Total Protein 5.8 gm/dl (6.0-8.3)
[2022-11-28] MEDS ORDERED: MIDODRINE HCL 10 MG TAB PO SCH (12:00)
[2022-11-28 12:24] LABS: Acanthocytes 3+; Basophilic Stippling 1+; Echinocytes 1+; Polychromasia 1+
[2022-11-28] MEDS ORDERED: ACETAMINOPHEN 325 MG TAB PO PRN (12:40)
[2022-11-28] MEDS ORDERED: LORazepam 0.5 MG TAB PO PRN (12:40)
[2022-11-28] MEDS ORDERED: ONDANSETRON INJ 2 MG/ML 2 ML VIAL IV PRN (12:40)
[2022-11-28] MEDS ORDERED: ONDANSETRON 4 MG OD TAB SL PRN (12:40)
[2022-11-28] MEDS ORDERED: HYDROmorphone INJ 0.5 MG/0.5 ML SYR IV PRN (12:40)
[2022-11-28] MEDS ORDERED: ONDANSETRON INJ 2 MG/ML 2 ML VIAL ONE (12:42)
[2022-11-28] MEDS ORDERED: GLYCOPYRROLATE 0.2 MG/ML VIAL IV PRN (12:53)
[2022-11-28] MEDS ORDERED: ondansetron HCL 8 MG in DEXTROSE 5% 50 ML IV ONE (13:00)
--- NOTE | 2022-11-28 13:08 | Palliative Care Consultation ---
Date of Consultation November 28, 2022 Assessment & Plan (1) Pain: He asked for morphine for chest pain. Given renal failure, would recommend hydromorphone to decrease risk of potential opioid toxicity. Discussed with Dr. Pradhan. Dose timing adjusted to q1h prn. (2) Nausea: with end stage liver disease and hepatorenal syndrome zofran ordered by Dr. Pradhan (3) Palliative care encounter: I met with Mr. Pa, his and sister in law at bedside, along with Dr. Pradhan. He and his have a good understanding of his illness and poor prognosis. His notes that he has not felt well or had good quality of life for several months. He talks openly about his fears of dying and concerns about leaving his and recognizes that he is approaching his dying time. We discussed option to shift focus of care to comfort and symptom management, they are in agreement that they would like to pursue this option. We discussed medications for symptom management and answered family questions. We discussed code status. He had been full code prior to admission. Knowing that he is approaching his dying time, he and his would prefer that time to be peaceful and have opted against resuscitation. Code status was changed to DNR/DNI. Discussed comfort care orders with Dr. Pradhan. History of Present Illness Reason for Consultation: goals of care Requesting Physician: Dr. Pradhan Attending Physician: Catia Solares, DO History of Present Illness 62 yo gentleman cirrhosis and hepatorenal syndrome . He has had persistent hypotension and intravascular volume depletion despite midrodrine, fluids and albumin. His diuretics have been on hold. During this admission, his bilirubin has gone from 1.4 to 2.4 and he has a MELD score of 23. He is unfortunately not a candidate for transplant or CRRT. This morning, a code purple was called due to hypotension. He is awake and has spoken with Dr. Pradhan about his poor prognosis. His has arrived and is at bedside. We have been consulted to assist with goals of care. Mr. Pa currently complains of aching pain in his chest and nausea. Allergies Allergy/AdvReac Type Severity Reaction Status Date / Time amlodipine [From Norvasc] AdvReac Unknown PT UNAWARE Verified 11/25/22 17:11 OF THIS ALLERGY OR REACTION??? Home Medications Medication Instructions Recorded Confirmed Type furosemide 20 mg tablet 20 mg PO DAILY #30 tabs 11/08/22 02/14/23 Rx spironolactone 25 mg tablet 50 mg PO QAM 30 days #60 tabs 09/17/22 11/25/22 Rx potassium chloride 20 mEq 20 meq PO DAILY #30 tabs 09/22/22 11/25/22 Rx tablet,extended release(part/cryst) (Klor-Con M) lactulose 20 gram/30 mL oral 20 g (30 mL) PO TID #8,100 mL 10/08/22 11/25/22 Rx solution mirtazapine 15 mg tablet 15 mg PO HS #90 tabs 10/14/22 11/25/22 Rx midodrine 10 mg tablet 10 mg PO TID@0800,1200,1700 30 11/12/22 11/25/22 Rx days #90 tabs pantoprazole 40 mg tablet,delayed 40 mg PO DAILY #30 tabs 11/24/22 11/25/22 Rx release Patient History Medical History Abdominal ascites Accelerated junctional rhythm Acute renal failure Alcohol abuse Alcoholic cirrhosis Alcoholic cirrhosis of liver Anemia Ascites Asthmatic bronchitis Blurred vision BPH (benign prostatic hyperplasia) Depression with anxiety Dermatitis Diarrhea Elevated LFTs Elevated liver enzymes Erectile dysfunction ETOH abuse Hyperkalemia Hyperlipidemia Hypertension Impaired fasting glucose Melena Noncompliance with medication regimen Portal hypertension Surgical History H/O esophagogastroduodenoscopy History of tonsillectomy and adenoidectomy Family History Father Heart disease Cardiomegaly Pacemaker Cardiac rhythm disorder or disturbance or change Mother Heart disease Pacemaker Social History Smoking Status: Never smoker Hx Alcohol Use: Yes Alcohol type: hard liquor Hx Substance Use: Yes Substance Use Type Other:: used last evening Preferred Language: Frisian Communication Ability: Effective Visual Impairment: No Limitations Blow Mold Operator Required: No Beliefs That Will Affect Care: Spiritual marital status: marital status details: hx of Current Living Situation: Spouse current occupational status: previously employed 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 [employer] Feels Safe at Home: Yes Childhood Exposure to Second-Hand Smoke: No Assistive Devices: None Review of Systems Review of Systems: ESAS Pain 2/3 Dyspnea 0/3 Nausea 2/3 Anxiety 2/3 Drowsiness 1/3 Physical Exam Constitutional: in Trendelenberg Eyes: scleral icterus Respiratory: normal respiratory effort; no labored breathing Skin: jaundice Neurologic: Speech / Cognition: normal cognition Results & Data ([facility]) Vital Signs (Past 12 Hours) Vital Signs Temp Pulse Pulse Resp BP BP Pulse Ox 11/28/22 11:00 11/28/22 10:48 98.4 F 75 18 63/42 L 62/42 L 93 11/28/22 10:32 73 11/28/22 09:48 88/60 L 11/28/22 07:26 98.4 F 72 20 77/52 L 93 11/28/22 04:29 78 83/45 L 11/28/22 03:32 70 74/47 L 11/28/22 02:22 98.8 F 62 18 83/56 L 92 11/28/22 01:55 75 60/39 L 11/28/22 01:16 61 64/36 L Pulse Ox O2 Del Method O2 Del Method 11/28/22 11:00 93 Room Air 11/28/22 10:48 Room Air 11/28/22 10:32 11/28/22 09:48 11/28/22 07:26 Room Air 11/28/22 04:29 11/28/22 03:32 11/28/22 02:22 Room Air 11/28/22 01:55 11/28/22 01:16 PG Care Time/CCT Total # of Minutes Spent Total Time Spent: 67 Total Time Spent with Patient: Total time spent is greater than 50% in coordination of care (as documented) at patient's floor/unit and/or counseling patient: [id number] Symptom management, goals of care, code status, patient and family education and support, coordination of care Coding Level of Care Code 84956 INT INP/OBS CARE 2/55MIN Diagnoses Pain R52 Nausea R11.0 Palliative care encounter Z51.5
[2022-11-28] MEDS: HYDROmorphone INJ 0.5 MG/0.5 ML SYR IV PRN ×3 (13:14→21:52)
[2022-11-28] MEDS: LORazepam 2 MG/1 ML VIAL IV PRN (20:10)
--- NOTE | 2022-11-28 22:03 | Electrocardiogram Report ---
Test Reason : Blood Pressure : / mmHG Vent. Rate : 063 BPM Atrial Rate : 147 BPM P-R Int : 000 ms QRS Dur : 076 ms QT Int : 480 ms P-R-T Axes : 000 -05 018 degrees QTc Int : 491 ms Atrial fibrillation Low voltage QRS Cannot rule out Anterior infarct , age undetermined Abnormal ECG When compared with ECG of 27-NOV-2022 11:05, Atrial fibrillation has replaced Sinus rhythm Vent. rate has decreased BY 45 BPM Inverted T waves have replaced nonspecific T wave abnormality in Anterior leads Confirmed by Roge Varela ([id number]) on 11/28/2022 10:03:26 PM Referred By: Abbey Caceres Confirmed By:Fede Varela
--- NOTE | 2022-11-28 22:39 | Electrocardiogram Report ---
Test Reason : Blood Pressure : / mmHG Vent. Rate : 080 BPM Atrial Rate : 080 BPM P-R Int : 152 ms QRS Dur : 084 ms QT Int : 436 ms P-R-T Axes : 079 095 083 degrees QTc Int : 502 ms Normal sinus rhythm Rightward axis Low voltage QRS Prolonged QT Abnormal ECG When compared with ECG of 27-NOV-2022 17:27, (unconfirmed) Sinus rhythm has replaced Atrial fibrillation Questionable change in QRS axis T wave inversion no longer evident in Anterior leads Confirmed by Roge Varela ([id number]) on 11/28/2022 10:38:27 PM Referred By: Abbey Caceres Confirmed By:Fede Varela
[2022-11-29] MEDS: HYDROmorphone INJ 0.5 MG/0.5 ML SYR IV PRN ×3 (07:51→19:52)
--- NOTE | 2022-11-29 08:51 | Hospitalist Progress Note ---
Date of Service November 29, 2022 Assessment & Plan (1) Goals of care, counseling/discussion: Plan: 11/28 patient had acute worsening in TBili, creatinine, hypotension despite interventions as outlined below. After family meeting with palliative care and family, patient elected to change code status to DNR/DNI and pursue comfort care. Patient transferred to medical floor. Palliative Care Katy Lerma consulted and appreciate recommendations. Patient and would prefer transition to home hospice if possible if patient continues to remain stable; will reach out to . (2) Hypotension: Plan: Patient was on IVF with albumin, midodrine increased to 15mg TID, and given octreotide 11/28; still unfortunately with significant hypotension to 60s systolic with code purple today for syncopal event. Lactate 2.2 -> 3.0, no evidence of infection on abdominal US, WBC normal, abdomen benign save for moderate stable ascites from admission. MENTAL HEALTH WORKER as above. (3) SALIMA (acute kidney injury): Plan: On admission patient appeared intravascularly dry similar to last admission, suspect due to diuretic use. Creatinine 3.05 -> 2.3 -> 2.82 with multisystem failure. US renal to assess for obstructive uropathy -> no evidence of such but with atrophic kidneys. Nephrology consulted and appreciate recommendations this admission, signed off following comfort transition. (4) Alcoholic cirrhosis: Plan: Holding diuretics spironolactone and Lasix as above. Moderate ascites noted on Abd US 11/25. T Bili up to 2.4 today, LFTs stable. Case discussed with patient's [facility] Athlete Manager: due to MELD 23, patient would not be a candidate for TIPS. Given illness and debility at this time would also not be a candidate for liver transplant. MENTAL HEALTH WORKER as above. (5) Hyponatremia: Plan: Suspect cause is intra-arterial volume depletion secondary to diuretics. Na 129 -> 136 with IVF. (6) Anemia: Plan: Chronic, in the setting of CKD and cirrhosis. Baseline Hgb range 8-10. Hgb 7.7 on 11/28 without evidence of active bleeding. Suspect due to hemodilution from IV fluids. No evidence of active bleeding. (7) Hyperkalemia: Plan: K 5.2 on admission, improved initially with IV fluids. Diet as desired by patient. Admission and Anticipated Discharge Date Admission Date: November 25, 2022 Subjective No acute events overnight. Symptoms of pain, trouble breathing, anxiety alleviated with prn comfort measure medications. Patient's Sarah asking if it is possible for patient to go home on hospice, as Suresh would like that if possible. Review of Systems Review of Systems: All systems reviewed & are unremarkable except as noted in Subjective Physical Exam Constitutional: comfortable appearing, alert, asking for a [employer] Respiratory: breathing comfortably Gastrointestinal (Abdomen): abdomen distended Results & Data Results & Data ([facility]) Vital Signs (Past 12 Hours) Vital Signs O2 Del Method 11/29/22 00:05 Room Air 11/28/22 21:15 Room Air PG Care Time/CCT Total # of Minutes Spent Total Time Spent with Patient: Total time spent is greater than 50% in coordination of care (as documented) at patient's floor/unit and/or counseling patient: Coding Level of Care Code 29807 SUB INP/OBS CARE 2/35MIN Diagnoses Goals of care, counseling/discussion Z71.89 Hypotension I95.9 SALIMA (acute kidney injury) N17.9 Alcoholic cirrhosis K70.30 Hyponatremia E87.1 Anemia D64.9 Hyperkalemia E87.5
--- NOTE | 2022-11-29 11:38 | Nephrology Progress Note ---
Date of Service November 29, 2022 Assessment & Plan (1) SALIMA (acute kidney injury): (2) Hyponatremia: (3) Hypotension: (4) Hyperkalemia: Plan Suresh is a 62 year-old male with alcoholic cirrhosis. He presented with SALIMA in the setting of decompensated liver disease concerning for HRS1. Triple therapy was started. However, after discussion regarding goals of care and palliative care consultation, Suresh has opted to transition to comfort measures only. At this time, nephrology will sign-off. I have no additional recommendations currently. Please call with questions or concerns. Admission and Anticipated Discharge Date Admission Date: November 25, 2022 Subjective No acute events overnight. No complaints this AM. Suresh denies any pain. Review of Systems Review of Systems: All systems reviewed & are unremarkable except as noted in HPI & below Physical Exam Constitutional: + ill appearing; no acute distress Results & Data ([facility]) Vital Signs (Past 12 Hours) Vital Signs O2 Del Method 11/29/22 00:05 Room Air Laboratory Results Laboratory Results - last 24 hr 11/28/22 11/28/22 11/28/22 11:07 11:07 11:07 WBC 7.98 RBC 2.57 L Hgb 7.7 L Hct 21.6 L MCV 84.0 MCH 30.0 MCHC 35.6 RDW Std Deviation 52.7 H RDW Coeff of Elizabeth 17.4 H Plt Count 143 MPV 10.0 Immature Gran % (Auto) 0.1 Neut % (Auto) 53.5 Lymph % (Auto) 35.1 Stevens % (Auto) 9.3 Eos % (Auto) 1.4 Baso % (Auto) 0.6 Neut # (Auto) 4.27 Lymph # (Auto) 2.80 Stevens # (Auto) 0.74 H Eos # (Auto) 0.11 Baso # (Auto) 0.05 Immature Gran # (Auto) 0.01 Polychromasia 1+ Basophilic Stippling 1+ Echinocytes 1+ Acanthocytes (Spur) 3+ Sodium 136 Potassium 4.0 Chloride 105 Carbon Dioxide 20 L Anion Gap 11 BUN 43 H Creatinine 2.82 H Est Cr Clr Drug Dosing 24.2 Est GFR ( Amer) 26.4 Est GFR (Non-Af Amer) 22.8 BUN/Creatinine Ratio 15.2 Glucose 109 H Lactate 3.0 H* Calcium 8.8 Total Bilirubin 2.4 H AST 15 ALT 7 Alkaline Phosphatase 60 Total Protein 5.8 L Albumin 3.4 Globulin 2.4 L Albumin/Globulin Ratio 1.4 PG Care Time/CCT Total # of Minutes Spent Total Time Spent with Patient: Total time spent is greater than 50% in coordination of care (as documented) at patient's floor/unit and/or counseling patient: Coding Level of Care Code 15316 SUB INP/OBS CARE 2/35MIN Diagnoses SALIMA (acute kidney injury) N17.9 Hyponatremia E87.1 Hypotension I95.9 Hyperkalemia E87.5
[2022-11-30] MEDS: HYDROmorphone INJ 0.5 MG/0.5 ML SYR IV PRN (03:02)
[2022-11-30] MEDS: LORazepam 2 MG/1 ML VIAL IV PRN (03:22)
--- NOTE | 2022-11-30 07:41 | Hospitalist Progress Note ---
Date of Service November 30, 2022 Assessment & Plan (1) Goals of care, counseling/discussion: Plan: 11/28: patient had acute worsening in TBili, creatinine, hypotension despite interventions as outlined below. After family meeting with palliative care and family, patient elected to change code status to DNR/DNI and pursue comfort care. Patient transferred to medical floor. Palliative Care Katy Lerma consulted and appreciate recommendations. 11/29: Patient and would prefer transition to home hospice if possible if patient continues to remain stable; CM will try to arrange. Will also let Palliative Care know. (2) Hypotension: Plan: Patient was on IVF with albumin, midodrine increased to 15mg TID, and given octreotide 11/28; still unfortunately with significant hypotension to 60s systolic with code purple today for syncopal event. Lactate 2.2 -> 3.0, no evidence of infection on abdominal US, WBC normal, abdomen benign save for moderate stable ascites from admission. SURGERY MANAGER as above. (3) SALIMA (acute kidney injury): Plan: On admission patient appeared intravascularly dry similar to last admission, suspect due to diuretic use. Creatinine 3.05 -> 2.3 -> 2.82 with multisystem failure. US renal to assess for obstructive uropathy -> no evidence of such but with atrophic kidneys. Nephrology consulted and appreciate recommendations this admission, signed off following comfort transition. (4) Alcoholic cirrhosis: Plan: Holding diuretics spironolactone and Lasix as above. Moderate ascites noted on Abd US 11/25. T Bili up to 2.4 today, LFTs stable. Case discussed with patient's [facility] Alcoholizer: due to MELD 23, patient would not be a candidate for TIPS. Given illness and debility at this time would also not be a candidate for liver transplant. SURGERY MANAGER as above. (5) Hyponatremia: Plan: Suspect cause is intra-arterial volume depletion secondary to diuretics. Na 129 -> 136 with IVF. (6) Anemia: Plan: Chronic, in the setting of CKD and cirrhosis. Baseline Hgb range 8-10. Hgb 7.7 on 11/28 without evidence of active bleeding. Suspect due to hemodilution from IV fluids. No evidence of active bleeding. (7) Hyperkalemia: Plan: K 5.2 on admission, improved initially with IV fluids. Diet as desired by patient. Admission and Anticipated Discharge Date Admission Date: November 25, 2022 PG Care Time/CCT Total # of Minutes Spent Total Time Spent with Patient: Total time spent is greater than 50% in coordination of care (as documented) at patient's floor/unit and/or counseling patient: Coding Diagnoses Goals of care, counseling/discussion Z71.89 Hypotension I95.9 SALIMA (acute kidney injury) N17.9 Alcoholic cirrhosis K70.30 Hyponatremia E87.1 Anemia D64.9 Hyperkalemia E87.5
[2022-11-30] MEDS: oxyCODONE HCL SOLN 5 MG/5 ML UDC PO PRN ×2 (13:57→16:12)
--- NOTE | 2022-11-30 14:38 | Discharge Summary ---
Discharge Summary Date of Service November 30, 2022 Admission HPI Per Admitting Provider Suresh Pa is a 62-year-old male with liver cirrhosis who presents to the ER on advice of his [facility] renter due to acute renal failure, hypotension and elevated potassium on outpatient labs. The patient reports he is fatigued with decreased appetite and does not really want to be admitted. He denies any upper respiratory symptoms, urinary complaints, abdominal pain, melena, bright red blood in stool, hemoptysis, hematemesis, fever, chills, nausea or vomiting. He was admitted under very similar circumstances from October 24 to 2022 with acute renal failure. He was noted to be in acute renal failure intravascularly deplete and responded to stopping his diuretics. He also required 11 L paracentesis during that time. He was restarted just on spironolactone per nephrology night however was discharged on both furosemide and spironolactone with a new prescription of midodrine. In the ER he was noted to have a blood pressure of 69/54 which responded to 500 mL normal saline bolus and midodrine 10 mg p.o. Creatinine 3.05 from baseline 1.25 in September. He was referred to medicine for admission and ongoing management of acute kidney failure. Admission Exam Per Admitting Provider Constitutional: well developed; + not well nourished and no acute distress Eyes: + anicteric sclerae; normal pupil size Respiratory: normal respiratory effort, lungs clear to auscultation Cardiovascular: Rate/Rhythm: regular rate and regular rhythm Heart Sounds: no murmur Extremities: no pedal edema Gastrointestinal (Abdomen): Inspection/Auscultation: normal bowel sounds; abdomen not distended Percussion/Palpation: abdomen soft; abdomen nontender, no guarding and abdomen not rigid Musculoskeletal: no cyanosis or clubbing, extremities motor strength 5/5 Skin: no rashes, warm and dry Neurologic: moves all extremities and awake; no focal motor deficits and not confused Motor/Sensory: no tremor and no asterixis Psychiatric: A+Ox3, euthymic affect Genitourinary: no CVA tenderness Principal Dx & Hospital Course #1 = Principal Diagnosis (1) Goals of care, counseling/discussion: Patient was admitted with declining liver and renal function in the setting of alcohol cirrhosis, with symptomatic hypotension despite iv fluids, albumin, midodrine, and octreotide. Continued to have worsening multisystem organ dysfunction despite interventions, and on 11/28 patient was made comfort care after family meeting with patient, patient's Sarah, and Katy Lerma with Palliative Care. Today patient was discharged home with home hospice. Please see the information below for further details about admission. (2) Hypotension: (3) SALIMA (acute kidney injury): (4) Alcoholic cirrhosis: (5) Hyponatremia: (6) Anemia: (7) Hyperkalemia: Plan Hypotension: Patient was on IVF with albumin, midodrine increased to 15mg TID, and given octreotide 11/28; still unfortunately with significant hypotension to 60s systolic with code purple today for syncopal event. Lactate 2.2 -> 3.0, no evidence of infection on abdominal US, WBC normal, abdomen benign save for moderate stable ascites from admission. FILLER SHREDDING MACHINE LOADER as above. SALIMA (acute kidney injury): On admission patient appeared intravascularly dry similar to last admission, suspect due to diuretic use. Creatinine 3.05 -> 2.3 -> 2.82 with multisystem failure. US renal to assess for obstructive uropathy -> no evidence of such but with atrophic kidneys. Nephrology consulted and appreciate recommendations this admission, signed off following comfort transition. Alcoholic cirrhosis: Holding diuretics spironolactone and Lasix. Moderate ascites noted on Abd US 11/25. T Bili up to 2.4 on last check, LFTs stable. Case discussed with patient's [facility] Crabbing Machine Operator: due to MELD 23, patient would not be a candidate for TIPS. Given illness and debility at this time would also not be a candidate for liver transplant. FILLER SHREDDING MACHINE LOADER as above. Hyponatremia: Suspect cause is intra-arterial volume depletion secondary to diuretics. Na 129 -> 136 with IVF. Anemia: Chronic, in the setting of CKD and cirrhosis. Baseline Hgb range 8-10. Hgb 7.7 on 11/28 without evidence of active bleeding. Suspect due to hemodilution from IV fluids. No evidence of active bleeding. Hyperkalemia: K 5.2 on admission, improved initially with IV fluids. Diet as desired by patient. Discharge Exam Constitutional patient is comfortable appearing, conversive, confused at times but redirectable Respiratory breathing comfortably without accessory muscle use Psychiatric alert, oriented x3 Updated Medication List Medication Instructions Recorded Confirmed Type furosemide 20 mg tablet 20 mg PO DAILY #30 tabs 08/19/22 11/25/22 Rx spironolactone 25 mg tablet 50 mg PO QAM 30 days #60 tabs 09/17/22 11/25/22 Rx potassium chloride 20 mEq 20 meq PO DAILY #30 tabs 09/22/22 11/25/22 Rx tablet,extended release(part/cryst) (Klor-Con M) lactulose 20 gram/30 mL oral 20 g (30 mL) PO TID #8,100 mL 10/08/22 11/25/22 Rx solution mirtazapine 15 mg tablet 15 mg PO HS #90 tabs 10/14/22 11/25/22 Rx midodrine 10 mg tablet 10 mg PO TID@0800,1200,1700 30 11/12/22 11/25/22 Rx days #90 tabs pantoprazole 40 mg tablet,delayed 40 mg PO DAILY #30 tabs 11/24/22 11/25/22 Rx release lorazepam 0.5 mg tablet (Ativan) 0.5 mg PO Q8H PRN anxiety 4 days 11/30/22 Rx #10 tabs ondansetron 4 mg disintegrating 4 mg PO Q8H 5 days #15 tabs 11/30/22 Rx tablet oxycodone 5 mg/5 mL oral solution 5 mg (5 mL) PO Q2H PRN pain 3 days 11/30/22 Rx #160 mL Hospital Stay Data Consultations 11/25/22 17:09 ED Decision to Admit Stat 11/26/22 08:24 Consult Gastroenterology Routine Consult Nephrology Routine 11/27/22 11:17 Consult Cardiology Routine 11/28/22 11:30 Consult Palliative Care Routine Diagnostic Imagining Performed 11/25/22 18:07 US Renal Bladder [US renal/blad retro comp] Urgent US abdomen ltd ascites Urgent Pending Results Patient Have Any Pending Studies at Discharge: No Discharge Instructions Given to Patient (Per Discharging Provider) Suresh was admitted to the hospital for abnormal labwork, including worsening of his liver failure and kidney failure. We tried to give him fluids, and increased medications like midodrine to try to get his numbers better and help his blood pressure. This interventions unfortunately did not help, and after discussing Suresh decided to change his plan toward one of comfort. Because he wanted to go home, I sent in for medications to carry him through until he is seen by the hospice nurse tomorrow. It is important since they will not see him until tomorrow that you bring him back if you are having any issues with controlling his symptoms, or if he clinically declines please bring him back to the hospital. Otherwise, you can use the medications that I sent to [facility] [address] to control any pain, nausea, or anxiety he may have until seen by the hospice nurse tomorrow. It was a pleasure taking care of Suresh. Total Time Total Time Spent Total Time Spent (In Minutes): 50 minutes total spent on patient's care today, specifically in planning for discharge with Case Management, [facility], Katy Florentin, patient, and his family. Coding Level of Care Code HOSP INP/OBS DISCH >30 MIN Diagnoses Goals of care, counseling/discussion Z71.89 Hypotension I95.9 SALIMA (acute kidney injury) N17.9 Alcoholic cirrhosis K70.30 Hyponatremia E87.1 Anemia D64.9 Hyperkalemia E87.5
== END 2022-11-30 17:02 | disposition hospice, home (50) | DRG 682 ==
LOC: ED 14:32 → SUATTDRO 17:31 → EDINP 17:31 → 2N 19:45 → 2S 11-27 11:59 → 3W 11-28 16:54